=== PATIENT | female | born 1970 | race Caucasian/White ===

== ENCOUNTER 2024-02-18 10:21 | Emergency (ER) | payer OTHER ==
--- OUTSIDE RECORDS SUMMARY | 2024-02-18 10:24 | XMS REPORT | Continuity of Care Document ---
Author Name Unknown Address [address] [place] [address] [facility] thconnect Address [address] [place] [address] Care Team Providers Care Claims Supervisor Name Role Phone AURELIO HENDRICKSON Primary Care Physician Unavailab ELOY León Attending Clinician Unavailable ELOY WASHBURN Attending Clinician Unavailable ESTHER LENNON Attending Clinician Unavailable Esther Lennon MD Attending Clinician [phone] Eri Peters Attending Clinician [phone] ERI CARDONA Attending Clinician Unavailable Gabriela VILLAFANA Attending Clinician Unavailable Gabriela Arce Attending Clinician [phone] Doctor Unassigned, [place] Attending Clinician Flor Chen RN, Alab De La Cruz Attending Clinician Unavailab nena Benson RN, Leonela De Jesus Attending Clinician Unavail able Kamaljit Boothe Attending Clinician [phone] KAMALJIT MORRIS Attending Clinician Unavailable ELOY WASHBURN Admitting Clinician Unavailable ESTHER LENNON Admitting Clinician Unavailable Problems Condition Name Condition Details Condition Category Status Onset Date Resolution Date Last Treatment Date Treating Clinician Comments Source Abdominal pain Abdominal pain Disease Active 08-09 00:00: 00 [facility] Allergies, Adverse Reactions, Alerts Allergy Name Allergy Type Status Severity Reaction(s) Onset Date Inactive Date Treating Clinician Comments Source NO KNOWN ALLERGIE S Drug Class Active [facility] Social History Social Habit Start Date Stop Date Quantity Comments Source [facility] to SARS-CoV-2 (event) Not sure [facility] Alcohol intake 2023-03-16 00:00:00 2023-03-16 00:00:00 Current non-drinker of alcohol (finding) [facility] History of Social function 2018-12-08 00:00:00 2018-12-08 00:00:00 [facility] Tobacco use and exposure 2018-08-09 00:00:00 2018-08-09 00:00:00 Smokeless tobacco non-user [facility] Sex Assigned At 1970 00:00:00 1970 00:00:00 [facility] Smoking Status Start Date Stop Date Source Never smoked tobacco [facility] Medications Ordered Medication Name Filled Medication Name Start Date Stop Date Current Medication? Ordering Clinician Indication Dosage Frequency Signature (SIG) Comments Components Source KCL (KLOR-CON M20) tablet 40 mEq 2022-06 0 15:45: 00 03-16 16:03 :00 No 40meq 40 mEq, Oral, ONCE, 1 dose, On Fri03/16/23 at 1045, CANDE [facility] ketorolac (TORADOL) tablet 10 mg 2022-06 0 15:30: 00 03-16 14:50 :00 No 10mg 10 mg, Oral, ONCE, 1 dose, On Fri03/16/23 at 1030, Routine [facility] NaCl 0.9% (NS) bolus infusion 1,000 mL 2022-06 0 15:30: 00 03-16 16:18 :00 No 1000mL at 999 mL/hr, 1,000 mL, IV Infusion, ONCE, 1 dose, On 03/16/23 at 1030, CANDE [facility] naproxen (NAPROSYN) 500 mg tablet 2022-06 00:00: 00 Yes [id number] 500mg Take 1 tablet by mouth in the morning and 1 tablet in the evening. Take with meals. [facility] methocarbam oL 750 mg tablet 2022-06 00:00: 00 Yes [id number] 750mg Take 1 tablet by mouth 4 (four) times daily. [facility] KCL 20 mEq tablet 2022-06 00:00: 00 03-22 04:59 :00 No [id number] 20meq Take 1 tablet by mouth in the morning and 1 tablet in the evening. Do all this for 5 days. [facility] NaCl 0.9% (NS) bolus infusion 1,000 mL 02-22 23:15: 02-23 00:00 :00 No 1000mL at 999 mL/hr, 1,000 mL, IV Infusion, ONCE, 1 dose, On 02/22/23 at 1815, STAT [facility] ketorolac (TORADOL) injection 30 mg 02-22 22:45: 00 02-22 22:24 :00 No 30mg 30 mg, Slow IV Push, ONCE, 1 dose, On 02/22/23 at 1745, CANDE [facility] iopamidol (ISOVUE 370-500 mL) injection 80 mL 02-22 21:15: 02-22 21:25 :00 No 80mL 80 mL, Intravenou s, ONCE, 1 dose, On 02/22/23 at 1615, Routine [facility] ondansetron (ZOFRAN (PF)) injection 4 mg 02-22 20:15: 00 02-22 19:37 :00 No 4mg 4 mg, Slow IV Push, ONCE, 1 dose, On 02/22/23 at 1515, CANDE [facility] NaCl 0.9% (NS) bolus infusion 1,000 mL 02-22 20:00: 00 02-22 22:00 :00 No 1000mL at 999 mL/hr, 1,000 mL, IV Infusion, ONCE, 1 dose, On [facility] 02[facility]22/23 [facility] 1500[facility] ([facility]PCID[facility] 40 mg tablet 02-22 00:00: 00 Yes [id number] 40mg Take 1 tablet by mouth in the morning. [facility] ondansetron 4 mg disintegrat ing tablet 02-22 00:00: 00 Yes [id number] 4mg Take 1 tablet by mouth every 4 (four) hours as needed for Nausea and Vomiting (N/V). [facility] KCL (KLOR-CON M20) tablet 40 mEq 02-21 03:00: 00 02-21 02:57 :00 No 40meq 40 mEq, Oral, ONCE, 1 dose, On Hannah 02/20/23 at 2200, [facility] ondansetron (ZOFRAN-ODT ) disintegrat ing tablet 4 mg 02-21 01:00: 00 02-21 00:52 :00 No 4mg 4 mg, Oral, ONCE, 1 dose, On Hannah 02/20/23 at 2000, Routine [facility] naproxen (NAPROSYN) tablet 500 mg 07-15 02:30: 00 07-15 01:28 :00 No 500mg 500 mg, Oral, ONCE, 1 dose, On [facility] 07/14/21 at 2030, Routine [facility] naproxen (NAPROSYN) 500 mg tablet 12 00:00: 00 03-16 00:00 :00 No [id number] 500mg Take 1 tablet by mouth 2 (two) times daily with meals. [facility] albuterol 90 mcg/actuati on inhaler 11-29 00:00: 00 Yes [id number] 2{puff} Inhale 2 Puffs every 4 (four) hours as needed for Wheezing or Shortness of Breath. [facility] benzonatate 100 mg capsule 11-29 00:00: 00 Yes [id number] 100mg Take 1 capsule by mouth 3 (three) times daily as needed for Cough. [facility] levothyroxi ne 75 mcg tablet 12-09 01:05: 20 Yes 75ug Take 75 mcg by mouth every morning. [facility] levothyroxi ne 75 mcg tablet 12-08 20:05: 20 Yes 75ug Take 75 mcg by mouth every morning. [facility] dicyclomine (BENTYL) 20 mg tablet 07-06 00:00: 00 Yes [id number] 20mg Take 1 tablet by mouth 4 (four) times daily as needed for Abdominal pain. [facility] Vital Signs Vital Name Observation Time Observation Value Comments S ource Systolic blood pressure 2023-03-16 16:00:00 166 mm[Hg] [facility] Diastolic blood pressure 2023-03-16 16:00:00 96 mm[Hg] [facility] Heart rate 2023-03-16 16:00:00 66 /min [facility] Respiratory rate 2023-03-16 16:00:00 20 /min [facility] Oxygen saturation in Arterial blood by Pulse oximetry 2023-03-16 16:00:00 96 /min [facility] Body temperature 2023-03-16 15:56:00 35.56 Jane [facility] Body height 2023-03-16 14:14:00 167.6 cm [facility] Body weight 2023-03-16 14:14:00 78.926 kg [facility] BMI 2023-03-16 14:14:00 28.08 kg/m2 [facility] Systolic blood pressure 2023-02-22 23:24:00 137 mm[Hg] [facility] Diastolic blood pressure 2023-02-22 23:24:00 91 mm[Hg] [facility] Heart rate 2023-02-22 23:24:00 65 /min [facility] Respiratory rate 2023-02-22 23:24:00 20 /min [facility] Oxygen saturation in Arterial blood by Pulse oximetry 2023-02-22 23:24:00 99 /min [facility] Body temperature 2023-02-22 22:24:00 36.17 Jane [facility] Body weight 2023-02-22 18:55:00 80.74 kg [facility] BMI 2023-02-22 18:55:00 28.73 kg/m2 [facility] Systolic blood pressure 2023-02-21 02:15:29 141 mm[Hg] [facility] Diastolic blood pressure 2023-02-21 02:15:29 107 mm[Hg] [facility] Heart rate 2023-02-21 02:15:29 79 /min [facility] Respiratory rate 2023-02-21 02:15:29 19 /min [facility] Oxygen saturation in Arterial blood by Pulse oximetry 2023-02-21 02:15:29 97 /min [facility] Body temperature 2023-02-21 00:56:51 36.5 Jane [facility] Body height 2023-02-20 23:07:00 167.6 cm [facility] Body weight 2023-02-20 23:07:00 80.74 kg [facility] BMI 2023-02-20 23:07:00 28.73 kg/m2 [facility] Systolic blood pressure 2021-07-15 00:41:00 143 mm[Hg] [facility] Diastolic blood pressure 2021-07-15 00:41:00 97 mm[Hg] [facility] Heart rate 2021-07-15 00:41:00 95 /min [facility] Body temperature 2021-07-15 00:41:00 36.56 Jane [facility] Respiratory rate 2021-07-15 00:41:00 18 /min [facility] Body weight 2021-07-15 00:41:00 77.111 kg [facility] BMI 2021-07-15 00:41:00 27.44 kg/m2 [facility] Oxygen saturation in Arterial blood by Pulse oximetry 2021-07-15 00:41:00 100 /min [facility] Systolic blood pressure 2019-12-01 04:30:00 120 mm[Hg] [facility] Diastolic blood pressure 2019-12-01 04:30:00 84 mm[Hg] [facility] Heart rate 2019-12-01 04:30:00 70 /min [facility] Respiratory rate 2019-12-01 04:30:00 15 /min [facility] Oxygen saturation in Arterial blood by Pulse oximetry 2019-12-01 04:30:00 100 /min [facility] Body temperature 2019-12-01 02:52:00 37.11 Jane [facility] Body weight 2019-12-01 02:52:00 77.111 kg [facility] BMI 2019-12-01 02:52:00 27.44 kg/m2 [facility] Procedures Procedure Date / Time Performed Performing Clinician Source COMP. METABOLIC PANEL ([id number]) 2023-03-16 14:38:00 Eloy Washburn [facility] CBC WITH DIFF 2023-03-16 14:38:00 Eloy Washburn [facility] URINALYSIS 2023-03-16 14:38:00 Eloy Washburn [facility] URINE DRUG (IMMUNOASSAY) - COMPREHENSIVE DRUG SCREEN W/O REFLEX 2023-03-16 14:38:00 [facility] HB ECG ROUTINE & RHYTHM STRIP 2023-03-16 14:11:28 [facility] CONSENT/REFUSAL FOR DIAGNOSIS AND TREATMENT 2023-03-16 14:05:43 Doctor Unassigned, [place] [facility] CT ABDOMEN PELVIS W CONTRAST 2023-02-22 21:24:57 Esther Lennon [facility] LACTIC ACID WHOLE BLOOD 2023-02-22 19:39:00 Do justice Lennon [facility] CREATINE KINASE 2023-02-22 19:38:00 [facility] 2023-02-22 19:38:00 Esther Lennon [facility] MAGNESIUM 2023-02-22 19:38:00 [facility] COMP. METABOLIC PANEL ([id number]) 2023-02-22 19:38:00 Esther Lennon [facility] CBC WITH DIFF 2023-02-22 19:38:00 Esther Lennon [facility] URINALYSIS 2023-02-22 19:38:00 [facility] URINE DRUG (IMMUNOASSAY) - COMPREHENSIVE DRUG SCREEN W/O REFLEX 2023-02-22 19:38:00 Esther Lennon [facility] CONSENT/REFUSAL FOR DIAGNOSIS AND TREATMENT 2023-02-22 18:49:26 Doctor Unassigned, [place] [facility] LIPASE 2023-02-21 02:04:[address] [facility] COMP. METABOLIC PANEL ([id number]) 2023-02-21 02:04:00 Eri Cardona [facility] CBC WITH DIFF 2023-02-21 02:04:[address] [facility] POCT GLUCOSE (AUTOMATED) 2023-02-21 01:50:00 Denilson Cardona [facility] URINALYSIS 2023-02-21 00:52:[address] [facility] ASSIGNMENT OF BENEFITS 2023-02-21 00:10:31 Docto r Unassigned, [place] [facility] RAPID INFLUENZA A/B 2023-02-21 00:05:00 Eri Cardona [facility] COVID-19 (ID NOW RAPID TESTING) 2023-02-21 00:05:00 Eri Cardona [facility] CONSENT/REFUSAL FOR DIAGNOSIS AND TREATMENT 2023-02-20 22:56:07 Doctor Unassigned, [place] [facility] NOTICE OF PRIVACY PRACTICES 2021-07-15 00:35:54 Doctor Unassigned, [place] [facility] CONSENT/REFUSAL FOR DIAGNOSIS AND TREATMENT 2021-07-15 00:35:24 Doctor Unassigned, [place] [facility] XR CHEST 1 VW 2019-12-01 03:35:08 Kamaljit Morris [facility] TROPONIN I 2019-12-01 03:08:00 Kamaljit Morris [facility] EKG-12 LEAD 2019-12-01 02:57:43 Kamaljit Morris [facility] ASSIGNMENT OF BENEFITS 2019-12-01 02:30:55 Docto r Unassigned, [place] [facility] CONSENT/REFUSAL FOR DIAGNOSIS AND TREATMENT 2019-12-01 02:30:26 Doctor Unassigned, [place] [facility] AUTHORIZATION FOR RELEASE OF PHI 2019-01-22 05:01:00 Doctor Unassigned, [place] [facility] Encounters Start Date/Time End Date/Time Encounter Type Admission Type Attending [facility] Facility Care Department Encounter ID Source 2023-03-26 14:50:11 2023-03-26 14:50:[address] [facility] [id number] Kartik Esteves 2023-03-16 09:08:00 2023-03-16 11:21:00 Emergency Blake [place] ELOY WASHBURN [facility] ERT [id number] [facility] 2023-03-16 09:08:00 2023-03-16 11:21:00 Emergency Eloy Washburn [facility] 1.2.840.114 350.1.13.10 4.2.7.2.686 [id number] [facility] 2023-02-22 13:57:00 2023-02-22 19:30:00 Emergency ESTHER MILLER [facility] ERT [id number] [facility] 2023-02-22 13:57:00 2023-02-22 19:30:00 Emergency Esther Lennon [facility] 1.2.840.114 350.1.13.10 4.2.7.2.686 [id number] [facility] 2023-02-20 18:08:00 2023-02-20 22:50:00 Emergency Eri Cardona [facility] 1.2.840.114 350.1.13.10 4.2.7.2.686 [id number] [facility] 2023-02-20 18:08:00 2023-02-20 22:50:00 Emergency X ERI CARDONA [facility] ERT [id number] [facility] 2021-07-14 18:42:00 2021-07-14 19:43:00 Emergency X Gabriela VILLAFANA [facility] ERT [id number] [facility] 2021-07-14 18:42:00 2021-07-14 19:43:00 Emergency Gabriela Villafana [facility] 1.2.840.114 350.1.13.10 4.2.7.2.686 [id number] [facility] 2021-07-14 00:00:00 2021-07-14 00:00:00 Orders Only Doctor Unassigned, [place] [facility] 1.2.840.114 350.1.13.10 4.2.7.2.686 [id number] [facility] 2019-12-06 00:00:00 2019-12-06 00:00:00 Letter (Out) Alba Chen [facility] 1.2.840.114 350.1.13.10 4.2.7.2.686 [id number] [facility] 2019-12-05 00:00:00 2019-12-05 00:00:00 Telephone Leonela Benson [facility] 1.2.840.114 350.1.13.10 4.2.7.2.686 [id number] [facility] 2019-11-30 21:33:45 2019-11-30 23:43:00 Emergency Kamaljit Morris [facility] 1.2.840.114 350.1.13.10 4.2.7.2.686 [id number] [facility] 2019-11-30 21:33:45 2019-11-30 21:33:45 Emergency X KAMALJIT MORRIS [facility] ERT [id number] [facility] 2019-11-30 00:00:00 2019-11-30 00:00:00 Orders Only Doctor Unassigned, [place] [facility] 1.2.840.114 350.1.13.10 4.2.7.2.686 [id number] [facility] 2019-01-22 00:00:00 2019-01-22 00:00:00 Orders Only Doctor Unassigned, [place] [facility] 1.2.840.114 350.1.13.10 4.2.7.2.686 [id number] [facility] Results Test Description Test Time Test Comments Results Result Co mments Source [facility] WITH [id number] 15:04:12* Test Item Value Reference Range Interpretation Comme nts WBC (test code = 6690-2) 5.05 See_Comment [Automated Breezeplay[employer] ge] The system which generated this result transmitted reference range: 4.30 - 11.10 10*3/?L. The reference range was not used to interpret this result as normal/abnormal. RBC (test code = 789-8) 4.56 See_Comment [Automated [employer]reezeplay[employer] ge] The system which generated this result transmitted reference range: 3.93 - 5.25 10*6/?L. The reference range was not used to interpret this result as normal/abnormal. HGB (test code = 718-7) 13.7 g/dL 11.6-15.0 HCT (test code = 4544-3) 39.7 % 35.7-45.2 MCV (test code = 787-2) 87.1 fL 80.6-95.5 MCH (test code = 785-6) 30.0 pg 25.9-32.8 MCHC (test code = 786-4) 34.5 g/dL 31.6-35.1 RDW-SD (test code = 35191-0) 41.0 fL 39.0-49.9 RDW-CV (test code = 788-0) 12.9 % 12.0-15.5 PLT (test code = 777-3) 211 See_Comment [Automated messa ge] The system which generated this result transmitted reference range: 166 - 358 10*3/?L. The reference range was not used to interpret this result as normal/abnormal. MPV (test code = 43633-6) 9.6 fL 9.5-12.9 NRBC/100 WBC (test code = 4494703299) 0.0 See_Comment [Automated me ssage] The system which generated this result transmitted reference range: 0.0 - 10.0 /100 WBCs. The reference range was not used to interpret this result as normal/abnormal. NRBC x10^3 (test code = 5611762148) See_Comment [Automated me ssage] The system which generated this result transmitted reference range: 10*3/?L. The reference range was not used to interpret this result as normal/abnormal. GRAN MAT (NEUT) % (test code = 770-8) 56.4 % IMM GRAN % (test code = 7247186639) 0.40 % LYMPH % (test code = 736-9) 28.1 % MONO % (test code = 5905-5) 11.7 % EOS % (test code = 713-8) 2.6 % BASO % (test code = 706-2) 0.8 % GRAN MAT x10^3(ANC) (test code = 3160184823) 2.85 10*3/uL 1.88-7.09 IMM GRAN x10^3 (test code = 9767663233) 0.00-0.06 LYMPH x10^3 (test code = 731-0) 1.42 10*3/uL 1.32-3.29 MONO x10^3 (test code = 742-7) 0.59 10*3/uL 0.33-0.92 EOS x10^3 (test code = 711-2) 0.13 10*3/uL 0.03-0.39 BASO x10^3 (test code = 704-7) 0.04 10*3/uL 0.01-0.07 [facility] [id number] 19:45:55* Test Item Value Reference Range Interpretation Comme nts LACTIC ACID (test code = 8251849918) 1.58 mmol/L 0.50-2.20 Lab Interpretation (test cod e = 84224-4) [facility] (96142)2023-02-21 02:58:07* Test Item Value Reference Range Interpretation Comme nts NA (test code = 0684584916) 136 mmol/L 135-145 K (test code = 5583410665) 2.9 mmol/L 3.5-5.0 LL CL (test code = 3299538210) 99 mmol/L 98-108 CO2 TOTAL (test code = 9583707842) 21 mmol/L 23-31 L AGAP (test code = 1283645264) 16 2-16 BUN (test code = 4467904052) 22 mg/dL 7-23 GLUCOSE (test code = 7503227118) 101 mg/dL 70-110 CREATININE (test code = 3007450221) 0.99 mg/dL 0.50-1.04 TOTAL BILI (test code = 7505377499) 1.3 mg/dL 0.1-1.1 H CALCIUM (test code = 0216526654) 9.9 mg/dL 8.6-10.6 T PROTEIN (test code = 0736400256) 9.2 g/dL 6.3-8.2 H ALBUMIN (test code = 1391838275) 4.7 g/dL 3.5-5.0 ALK PHOS (test code = 2517213846) 85 U/L 34-122 ALTv (test code = 1742-6) 118 U/L 5-35 H AST(SGOT) (test code = 8607007761) 104 U/L 13-40 H eGFR (test code = 0475516241) 58.5 mL/min/1.73m2 SAPPHIRE (test code = SAPPHIRE) Association of Glomerular Filtration Rate (GFR) and Staging of Kidney Disease* + --+ --+ ------+| GFR (mL/min/1.73 m2) ?| With Kidney Damage ?| ?Without Kidney Damage+ --------+ --------+ +| ?>90 ?| ?Stage one ?| ? Normal ?+ ---+ ---+ -------+| ?60-89 ?| ?Stage two ?| ? Decreased GFR ? + --+ --+ ------+| ?30-59 ?| ?Stage three ?| ? Stage three ? + --+ --+ ------+| ?15-29 ?| ?Stage four ? | ? Stage four ?+ ---+ ---+ -------+| ?<15 (or dialysis) ? ?| ?Stage five ? | ? Stage five ?+ ---+ ---+ -------+ *Each stage assumes the associated GFR level has been in effect for at least three months. ?Stages 1 to 5, with or without kidney disease, indicate chronic kidney disease. Notes: Determination of stages one and two (with eGFR >59mL/min/1.73 m2) requires estimation of kidney damage for at least three months as defined by structural or functional abnormalities of the kidney, manifested by either:Pathological abnormalities or Markers of kidney damage (including abnormalities in the composition of the blood or urine or abnormalities in imaging tests). Lab Interpretation (test code = 86888-3) Abnormal [facility] WITH [id number] 02:50:32* Test Item Value Reference Range Interpretation Comme nts WBC (test code = 6690-2) 11.84 See_Comment H [Automated FlipKey] The system which generated this result transmitted reference range: 4.30 - 11.10 10*3/?L. The reference range was not used to interpret this result as normal/abnormal. RBC (test code = 789-8) 5.51 See_Comment H [Automated [employer]Key] The system which generated this result transmitted reference range: 3.93 - 5.25 10*6/?L. The reference range was not used to interpret this result as normal/abnormal. HGB (test code = 718-7) 16.6 g/dL 11.6-15.0 H HCT (test code = 4544-3) 46.7 % 35.7-45.2 H MCV (test code = 787-2) 84.8 fL 80.6-95.5 MCH (test code = 785-6) 30.1 pg 25.9-32.8 MCHC (test code = 786-4) 35.5 g/dL 31.6-35.1 H RDW-SD (test code = 16016-0) 39.8 fL 39.0-49.9 RDW-CV (test code = 788-0) 13.2 % 12.0-15.5 PLT (test code = 777-3) 379 See_Comment H [Automated messa ge] The system which generated this result transmitted reference range: 166 - 358 10*3/?L. The reference range was not used to interpret this result as normal/abnormal. MPV (test code = 01921-6) 9.8 fL 9.5-12.9 NRBC/100 WBC (test code = 6562306280) 0.0 See_Comment [Automated [employer] ssage] The system which generated this result transmitted reference range: 0.0 - 10.0 /100 WBCs. The reference range was not used to interpret this result as normal/abnormal. NRBC x10^3 (test code = 8133991650) See_Comment [Automated messa ge] The system which generated this result transmitted reference range: 10*3/?L. The reference range was not used to interpret this result as normal/abnormal. GRAN MAT (NEUT) % (test code = 770-8) 57.8 % IMM GRAN % (test code = 8206832666) 1.20 % LYMPH % (test code = 736-9) 23.4 % MONO % (test code = 5905-5) 15.3 % EOS % (test code = 713-8) 1.5 % BASO % (test code = 706-2) 0.8 % GRAN MAT x10^3(ANC) (test code = 6201182558) 6.84 10*3/uL 1.88-7.09 IMM GRAN x10^3 (test code = 8707276491) 0.14 10*3/uL 0.00-0.06 H LYMPH x10^3 (test code = 731-0) 2.77 10*3/uL 1.32-3.29 MONO x10^3 (test code = 742-7) 1.81 10*3/uL 0.33-0.92 H EOS x10^3 (test code = 711-2) 0.18 10*3/uL 0.03-0.39 BASO x10^3 (test code = 704-7) 0.10 10*3/uL 0.01-0.07 H Lab Interpretation (test code = 16838-0) [facility]:29* Test Item Value Reference Range Interpretation Comme nts LIPASE (test code = 6929472233) 201 U/L 0-220 Lab Interpretation (test cod e = 57364-2) Normal [facility]2023-02-21 01:52:26* Test Item Value Reference Range Interpretation Comme nts POCT GLU (test code = 8467459589) 99 mg/dL 70-110 Lab Interpretation (test cod e = 99244-2) Normal [facility] 1 [id number] 04:33:08No acute intrathoracic abnormality. Preliminary Report Dictated by Resident: Kumar Hall MD., have reviewed this study and agree with the abovereport.PROCEDURE: XR CHEST 1 VW CLINICAL INDICATION: cough, shortness of breath COMPARISON: None FINDINGS: The lungs are clear. No pleural effusion or pneumothorax is seen. The heartis normal in size. No acute bony abnormality. Surgical clips overlie the right axilla. [facility], Radiant Results Inft User - 11/30/2019 11:34 PM CDTPROCEDURE: XR CHEST 1 VWCLINICAL INDICATION: cough, shortness of breath COMPARISON: NoneFINDINGS:The lungs are clear. No pleural effusion or pneumothorax is seen. The heartis normal in size.No acute bony abnormality. Surgical clips overlie the right axilla.IMPRESSIONNo acute intrathoracic abnormality.Preliminary Report Dictated by Resident: Kumar Marinelli MD., have reviewed this study and agree with the abovereport.[facility]43:00* Test Item Value Reference Range Interpretation Comme nts TROPONIN I (test code = 7207657501) <0.012 See_Comment [Automated message] The system which generated this result transmitted reference range: <=0.034 ng/mL. The reference range was not used to interpret this result as normal/abnormal. SAPPHIRE (test code = SAPPHIRE) Equal or Less than 0.034 ng/ml---Normal ?Note: Cardiac troponin begins to rise 3-4 hours after the onset of ischemia. Repeat in 4-6 hours if the sample was drawn within 3-4 hours of the onset of the symptom and found normal. Between 0.035 and 0.120 ng/mL--- Borderline. Questionable myocardial injury or necrosis ? ?Note: Serial measurement may be necessary to confirm or exclude the diagnosis of myocardial injury or necrosis; Clinical correlation (symptoms, EKGs, imaging studies, and others) required; Repeat in 4-6 hours if clinically indicated. ? Equal or Higher than 0.121 ng/mL---Abnormal. Myocardial Injury or Necrosis Likely ? Biotin has been reported to cause a negative bias, interpret results relative to patient's use of biotin. ? Lab Interpretation (test code = 16855-1) Normal [facility]"
[2024-02-18 11:14] LABS: SARS-CoV-2 Antigen CONTROL BLUE LINE VIS/BG OK; SARS-CoV-2 Antigen Rapid Res Negative (Negative)
[2024-02-18] MEDS ORDERED: LORazepam 2 MG/ML VIAL ONE (11:19)
[2024-02-18] MEDS ORDERED: NA CHLORIDE 0.9% 1,000 ML ONE ×2 (11:23→13:36)
[2024-02-18 11:42] LABS: Absolute Eosinophils 0.1 K/uL (0-0.5); Absolute Lymphocytes (CBC) 0.8 K/uL (0.7-4.9); Absolute Monocytes 0.5 K/uL (0.1-1.3); Absolute Neutrophil 2.9 K/uL (1.8-8.0); Basophils % 0.9 % (0-1.3); Eosinophils % 1.9 % (0-4.4); Hematocrit 39.6 % (36.0-45.0); Hemoglobin 13.4 g/dL (12.0-15.0); MCH 29.8 pg (27.0-35.0); MCHC 33.9 g/dL (32.0-36.0); MCV 87.8 fL (80-100); MPV 7.5 fL (7.6-11.3); Neutrophils % 66.2 % (41.7-73.7); Platelets 153 thou/uL (152-406); RBC Red Blood Cell Count 4.51 M/uL (3.86-4.86); Red Cell Distribution Width 13.4 % (12.1-15.2)
--- NOTE | 2024-02-18 11:58 | RAD REPORT ---
EXAM: CT brain without contrast HISTORY: [facility] WEAK[facility] Bed Name: 7 COMPARISON: None TECHNIQUE: Multiple contiguous axial images were obtained and a CT of the brain without contrast. Sag ittal and coronal reformats were performed. FINDINGS: No evidence of hydrocephalus, intracranial hemorrhage, or extra-axial fluid collection. The brain is normal in morphology. The calvarium is intact. Mild polypoid mucosal thickening noted in the paranasal sinuses. Partially v isualized. Small collections along the right maxillary alveolus, may represent small abscesses. IMPRESSION: No evidence of acute intracranial abnormality. Suggestion of small periapical abscesses along the right maxillary alveolus, please correlate with de ntal exam.
[2024-02-18 12:07] LABS: ALT/SGPT 109 U/L (13-56); AST/SGOT 79 U/L (15-37); Albumin 3.4 g/dL (3.4-5.0); Albumin/Globulin Ratio 0.8 (1.1-1.8); Alkaline Phosphatase 58 U/L (45-117); Anion Gap 10.3 mEq/L (5.0-15.0); BUN Blood Urea Nitrogen 10 mg/dL (7-18); Bicarbonate 23 mEq/L (21-32); Bilirubin Direct 0.4 mg/dL (0-0.2); Bilirubin Indirect, Calculated 1.2 mg/dL (0.2-0.8); Bilirubin Total 1.6 mg/dL (0.2-1.0); Globulin 4.2 g/dL (2.3-3.5); Glomerular Filtration Rate 104 ml/min (=/>90); Glucose Level 90 mg/dL (74-106); Lipase 24 U/L (13-75); Magnesium 1.7 mg/dL (1.6-2.4); NT PRO-BNP 263 pg/mL (<125); Potassium 3.3 mEq/L (3.5-5.1); Protein, Total 7.6 g/dL (6.4-8.2); Sodium Level 140 mEq/L (136-145); Troponin High Sensitivity 3.9 pg/mL (<58.9)
[2024-02-18 12:10] LABS: D-Dimer 1.069 FEUug/mL (0-0.500); PT Prothrombin Time 13.5 SECONDS (9.4-12.5); Protime INR 1.21
[2024-02-18] MEDS ORDERED: FOLIC ACID 5 MG/ML VIAL ONE (12:11)
--- NOTE | 2024-02-18 12:47 | RAD REPORT ---
EXAMINATION: MRI BRAIN WITHOUT CONTRAST CLINICAL INDICATION: Female, 54 years old.[facility] MAIN N WEAKNESS Bed Name: 7 TECHNIQUE: Multiplanar multisequence MR images of the brain were obtained without intravenous contras t. Unless otherwise specified, incidental findings do not require dedicated imaging follow-up. COMPARISON: Noncontrast head CT of the same day FINDINGS: Motion artifact limits evaluation on some sequences, despite attempts at repeat imaging. INTRACRANIAL: Midline structures are unremarkable. Diffusion-weighted images show no acute or early subacute infarction. There is mild brain atrophy with mildT2/FLAIR hyperintensities in the periventricular and deep white matter regions, likely representing chronic microvascular ischemic rafaela nges. No augmented susceptibility signal abnormality. There is no mass effect or midline shift. No abnormal extraaxial fluid collection. VASCULATURE: Normal signal voids in the larger intracranial arteries and dural venous sinuses. SINUSES: The paranasal sinuses and mastoid air cells are predominantly clear. BONE: The marrow signal pattern is within normal limits. IMPRESSION: No significant intracranial abnormalities.
--- NOTE | 2024-02-18 13:34 | RAD REPORT ---
EXAMINATION: US CAROTID DUPLEX CLINICAL INDICATION: Dizziness. TECHNIQUE: Real-time grayscale, color flow and spectral Doppler sonographic images were obtained of t extracranial carotid system using a linear transducer. COMPARISON: No prior exam. FINDINGS: RIGHT: Velocity of the internal carotid artery centimeters per second Right ICA/CCA ratio is normal LEFT: Velocity of the left internal carotid artery centimeters per second Left ICA/CCA ratio is normal Mild plaque is present within the arteries. Vertebral arteries demonstrate antegrade flow. No significant abnormality external and common carotid arteries NASCET criteria: mild stenosis, 0% to 49%; moderate, 50% to 69%; severe stenosis, 70% to 99%. For ECST and CC criteria , mild stenosis, 0% to 64 %; moderate, 65% to 81%; severe stenosis, 82% to 99%. IMPRESSION: No significant vascular abnormality displayed
[2024-02-18] MEDS ORDERED: CLINDAMYCIN 900MG/D5W 900 MG/50 ML IVPB IV ONE (13:36)
[2024-02-18] MEDS ORDERED: POTASSIUM 25 MEQ EFFERV TAB ONE (13:36)
[2024-02-18 13:42] LABS: Specific Gravity 1.012 (1.005-1.030); Sqamous Epithelial <5 /HPF (None Seen); Urine Bacteria None Seen /HPF (<20); Urine Bilirubin NEGATIVE (Negative); Urine Blood Trace (Negative); Urine Clarity Clear (Clear); Urine Color Light-Yellow (Yellow); Urine Culture Reflex Order NOT NEEDED; Urine Glucose NEGATIVE (Negative); Urine Ketones 1+ (Negative); Urine Microscopic Reflex YN ORDER UMIC; Urine Mucus Slight /HPF (None Seen); Urine Nitrite NEGATIVE (Negative); Urine Protein NEGATIVE (Negative); Urine RBC <5 /HPF (None Seen); Urine Urobilinogen Normal (Normal); Urine WBC None Seen /HPF (<5)
[2024-02-18 13:51] LABS: Barbiturates NEGATIVE (NEGATIVE); Benzodiazepines NEGATIVE (NEGATIVE); Cocaine NEGATIVE (NEGATIVE); METHAMPHETAM NEGATIVE (NEGATIVE); Methadone NEGATIVE (NEGATIVE); Opiates NEGATIVE (NEGATIVE); Phencyclidine NEGATIVE (NEGATIVE); THC Cannibis POSITIVE (NEGATIVE)
--- NOTE | 2024-02-18 14:23 | RAD REPORT ---
Chest For Pe Angio History: EXAM: Chest For Pe Angio CLINICAL INDICATION: Chest pain N TECHNIQUE CT angiogram of the chest with intravenous contrast. 100 cc 370 Isovue administered intrav enously. Reconstruction performed One or more of the following dose reduction techniques were used: Automated exposure control, adjustment of the mA and/or kV according to patient size, and/or iterativ e reconstruction. Unless otherwise specified, incidental findings do not require dedicated imaging follow-up. COMPARISON: 2006 FINDINGS: A pulmonary embolus is not seen. No thoracic aortic aneurysm A pleural effusion present. No pericardial effusion. Lungs are clear. Visualized spleen is enlarged IMPRESSION: No evidence of a pulmonary embolus Splenomegaly
--- NOTE | 2024-02-18 14:28 | RAD REPORT ---
Extrem Venous W Compress Ronnie History: EXAMINATION: US bilateral LOWER EXTREMITY VENOUS DOPPLER CLINICAL INDICATION: Leg pain. TECHNIQUE: Complete bilateral duplex sonography of the bilateral lower extremity veins was performed. The examination included compression for vein patency, color Doppler imaging and flow augmentation in response to distal compression of the common femoral, femoral, popliteal, tibial, and great saphen ous veins. COMPARISON: None FINDINGS: Duplex sonography testing of the veins of the left lower extremity was performed. Color flow imaging shows all veins to be compressible with [id number] color filling. Pulsatile and phasic flow is present within all lower extremity deep and superficial veins examined. 3.8 x 0.6 cm Metcalf's cyst left leg IMPRESSION: No sonographic evidence of deep venous thrombosis involving the bilateral lower extremities 3.8 cm le ft Metcalf cyst
--- NOTE | 2024-02-18 14:31 | EDPHYS ---
Physician Documentation [facility] Name: Shivani Washington Age: 54 yrs Sex: Female : 1970 Arrival Date: 02/18/2024 Time: 10:21 Bed 7 Private MD: ANTHONY Physician Олег Navarro HPI: 02/17 11:28 This 54 yrs old Female presents to ER via Wheelchair with complaints of Flu rafaela Symptoms. 11:28 The patient's problem is reported as weakness, that is generalized. Onset: The rafaela symptoms/episode began/occurred this morning. Duration: This was a single incident, The episode is continuous. Context: weak and shaky all over. The symptoms are alleviated by nothing. shaky all over , right greater than left. 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 - Infectious Disease History:: Denies. - Social history:: Smoking status: Patient denies any tobacco usage or history of. Patient/guardian denies using alcohol. ROS: 11:31 Constitutional: Negative for fever, chills, and weight loss, Eyes: Negative for injury, rafaela pain, redness, and discharge, ENT: Negative for injury, pain, and discharge, Neck: Negative for injury, pain, and swelling, Cardiovascular: Negative for chest pain, palpitations, and edema, Respiratory: Negative for shortness of breath, cough, wheezing, and pleuritic chest pain, Abdomen/GI: Negative for abdominal pain, nausea, vomiting, diarrhea, and constipation, Back: Negative for injury and pain, : Negative for injury, bleeding, discharge, and swelling, Skin: Negative for injury, rash, and discoloration, Psych: Negative for depression, anxiety, suicide ideation, homicidal ideation, and hallucinations, Allergy/Immunology: Negative for hives, rash, and allergies, Endocrine: Negative for neck swelling, polydipsia, polyuria, polyphagia, and marked weight changes, Hematologic/Lymphatic: Negative for swollen nodes, abnormal bleeding, and unusual bruising, 11:31 MS/extremity: Positive for weak and shaky both sides, Exam: 11:31 Constitutional: This is a well developed, well nourished patient who is awake, alert, rafaela and in no acute distress. Head/Face: Normocephalic, atraumatic. Eyes: Pupils equal round and reactive to light, extra-ocular motions intact. Lids and lashes normal. Conjunctiva and sclera are non-icteric and not injected. Cornea within normal limits. Periorbital areas with no swelling, redness, or edema. ENT: Nares patent. No nasal discharge, no septal abnormalities noted. Tympanic membranes are normal and external auditory canals are clear. Oropharynx with no redness, swelling, or masses, exudates, or evidence of obstruction, uvula midline. Mucous membranes moist. Neck: Trachea midline, no thyromegaly or masses palpated, and no cervical lymphadenopathy. Supple, full range of motion without nuchal rigidity, or vertebral point tenderness. No Meningismus. Chest/axilla: Normal chest wall appearance and motion. Nontender with no deformity. No lesions are appreciated. Cardiovascular: Regular rate and rhythm with a normal S1 and S2. No gallops, murmurs, or rubs. Normal PMI, no JVD. No pulse deficits. Respiratory: Lungs have equal breath sounds bilaterally, clear to auscultation and percussion. No rales, rhonchi or wheezes noted. No increased work of breathing, no retractions or nasal flaring. Abdomen/GI: Soft, non-tender, with normal bowel sounds. No distension or tympany. No guarding or rebound. No evidence of tenderness throughout. Back: No spinal tenderness. No costovertebral tenderness. Full range of motion. Skin: Warm, dry with normal turgor. Normal color with no rashes, no lesions, and no evidence of cellulitis. MS/ Extremity: Pulses equal, no cyanosis. Neurovascular intact. Full, normal range of motion. Neuro: Awake and alert, GCS 15, oriented to person, place, time, and situation. Cranial nerves II-XII grossly intact. Motor strength 5/5 in all extremities. Sensory grossly intact. Cerebellar exam normal. Normal gait. Psych: Awake, alert, with orientation to person, place and time. Behavior, mood, and affect are within normal limits. 11:31 ECG was reviewed by the Attending Physician. 11:34 Radiologist reports: see report [facility] 12:25 ECG was reviewed by the Attending Physician. [facility] Vital Signs: 10:27 BP 149 / 101; Pulse 91; Resp 25; Temp 99(O); Pulse Ox 96% on R/A; Weight 81.65 kg; tm6 Height 5 ft. 5 in. ; Pain 8/10; 12:25 BP 150 / 88; Pulse 65; Resp 16 S; Pulse Ox 96% on R/A; kc6 14:40 BP 143 / 84; Pulse 62; Resp 15; Pulse Ox 100% ; ko1 10:27 Body Mass Index 29.95 (81.65 kg, 165.1 cm) tm6 10:27 Pain Scale: Adult tm6 MDM: 10:25 Patient medically screened. [facility] 11:33 Differential diagnosis: CVA, TIA, Dementia, paralysis, metabolic disorder, drug rafaela effects. Differential Diagnosis altered mental status, sepsis, flu. TNKase (Tenecteplase) Screening: Not Applicable. Data reviewed: vital signs, nurses notes, lab test result(s), EKG, radiologic studies, CT scan, doppler, plain films. Consideration of Admission/Observation Escalation of care including admission/observation considered. I considered the following discharge prescriptions or medication management in the emergency department Medications were administered in the Emergency Department. See MAR. Independent interpretation of the following test(s) in the Emergency Department EKG: See my EKG interpretation above. Test considered but Not performed: CT: no ct traumagram. 02/17 10:25 Order name: SARS RAPID; Complete Time: 13:12 [facility] 02/17 10:25 Order name: Flu; Complete Time: 13:12 [facility] 02/17 10:25 Order name: Strep [facility] 02/17 11:10 Order name: Basic Metabolic Panel; Complete Time: 13:12 [facility] 02/17 11:10 Order name: CBC with Diff; Complete Time: 13:12 [facility] 02/17 11:10 Order name: LFT's; Complete Time: 13:12 [facility] 02/17 11:10 Order name: Magnesium; Complete Time: 13:12 [facility] 02/17 11:10 Order name: NT PRO-BNP; Complete Time: 13:12 [facility] 02/17 11:10 Order name: PT-INR; Complete Time: 13:12 [facility] 02/17 11:10 Order name: Troponin HS; Complete Time: 13:12 [facility] 02/17 11:10 Order name: Lipase; Complete Time: 13:12 [facility] 02/17 11:10 Order name: Urinalysis w/ reflexes; Complete Time: 14:29 [facility] 02/17 11:10 Order name: UDS; Complete Time: 14:29 [facility] 02/17 11:10 Order name: ETOH Level; Complete Time: 13:12 [facility] 02/17 11:10 Order name: D-Dimer; Complete Time: 13:12 [facility] 02/17 11:11 Order name: Throat Culture [facility] 02/17 11:37 Order name: Asprin; Complete Time: 14:29 [facility] 02/17 11:58 Order name: Acetaminophen Level; Complete Time: 13:12 [facility] 02/17 11:10 Order name: XRAY Chest (1 view) [facility] 02/17 11:10 Order name: CT Head Brain wo Cont; Complete Time: 13:12 [facility] 02/17 11:10 Order name: US Carotid Artery Bilateral; Complete Time: 14:29 [facility] 02/17 11:32 Order name: Brain Wo Cont; Complete Time: 13:12 [facility] 02/17 13:13 Order name: US Extremity Venous W Compression Ronnie; Complete Time: 14:29 [facility] 02/17 13:13 Order name: CT Chest For PE Angio [facility] 02/17 11:10 Order name: EKG; Complete Time: 11:10 [facility] 02/17 11:10 Order name: Cardiac monitoring; Complete Time: 11:18 [facility] 02/17 11:10 Order name: EKG - Nurse/Tech; Complete Time: 12:25 [facility] 02/17 11:10 Order name: IV Saline Lock; Complete Time: 11:29 [facility] 02/17 11:10 Order name: Labs collected and sent; Complete Time: 11:29 [facility] 02/17 11:10 Order name: O2 Per Protocol; Complete Time: 11:18 [facility] 02/17 11:10 Order name: O2 Sat Monitoring; Complete Time: 11:18 [facility] EC:25 Rate is 65 beats/min. Rhythm is regular. QRS Pollock is Normal. ND interval is normal. QRS rafaela interval is normal. QT interval is normal. No Q waves. T waves are Normal. No ST changes noted. Clinical impression: Normal ECG and No evidence of ischemia. Interpreted by me. Reviewed by me. Administered Medications: 11:20 Drug: Ativan IVP 1 mg IVP once Route: IVP; Site: left antecubital; ko1 11:35 Follow up: Response: No adverse reaction; Anxiety unchanged ko1 11:27 Drug: NS 0.9% IV 1000 ml IV at 1 bolus Per protocol; 1000 mL bolus Route: IV; Rate: 1 ko1 bolus; Site: left antecubital; 11:28 Drug: Ativan IVP 1 mg IVP once Route: IVP; Site: left antecubital; ko1 11:43 Follow up: Response: No adverse reaction; Anxiety decreased ko1 12:25 Drug: foLIC Acid IVPB 1 mg IVPB once Route: IVPB; Site: left antecubital; kc6 14:04 Drug: NS 0.9% IV 1000 ml IV at 1 bolus Per protocol; 1000 mL bolus Route: IV; Rate: 1 ko1 bolus; Site: left antecubital; 14:42 Follow up: Response: No adverse reaction; IV Status: Completed infusion; IV Intake: ko1 1000ml 14:04 Drug: Potassium PO Effervescent Tablet 50 mEq PO once; dissolve in 4 ounces of water or ko1 juice Route: PO; 14:40 Follow up: Response: No adverse reaction ko1 14:04 Drug: Clindamycin IVPB 900 mg IVPB once over 30 mins; (mix in 50 mL) Route: IVPB; ko1 Infused Over: 30 mins; Site: left antecubital; 14:42 Follow up: Response: No adverse reaction; IV Status: Completed infusion; IV Intake: [id number] Disposition Summary: 02/18/24 14:30 Discharge Ordered Notes: Location: Home rafaela Problem: new rafaela Symptoms: have improved rafaela Condition: Stable rafaela Diagnosis - Weakness rafaela - Hypokalemia rafaela - Dental root caries - ABSCESSES, PERIAPICAL rafaela Followup: rafaela - With: Private Physician - When: 2 - 3 days - Reason: Recheck today's complaints, Continuance of care, Re-evaluation by your physician Followup: rafaela - With: Juan Carlos Graham MD - When: 2 - 3 days - Reason: Recheck today's complaints, Re-evaluation by your physician Followup: rafaela - With: Christophe Anaya MD - When: 2 - 3 days - Reason: Recheck today's complaints, Re-evaluation by your physician Followup: rafaela - With: Rahat Pena DDS - When: 2 - 3 days - Reason: Recheck today's complaints, Re-evaluation by your physician Discharge Instructions: - Discharge Summary Sheet rafaela - Dental Caries, Adult rafaela - Potassium Content of Foods rafaela - Weakness rafaela - Fatigue rafaela - Dental Pain, [id number] rafaela - Weakness, Rfic-[id number] rafaela - Aspirin and Your Heart rafaela - Hypokalemia rafaela - Deconditioning rafaela - Dental Caries, Adult, [id number] rafaela Forms: - Work release form bd - Medication Reconciliation Form rafaela - Antibiotic Education rafaela - Prescription Opioid Use rafaela - Patient Portal Instructions rafaela - Leadership Thank You Letter [facility] Prescriptions: - Clindamycin HCl 300 mg Oral capsule - take 1 capsule ORAL route every 6 hours for 10 days; 28 capsule; Refills: 0, rafaela Product Selection Permitted - Folic Acid 1 mg Oral Tablet - take 1 tablet ORAL route once daily; 30 tablet; Refills: 0, Product Selection rafaela Permitted Signatures: Dispatcher [employer] EDОлег Gay MD MD cha Campbell, Kaitlyn RN RN kc6 Varsha Washington RN RN ko1 Alexander Santoyo RN RN tm6 Corrections: (The following items were deleted from the chart) 11:32 11:10 MR STROKE PROTOCOL+MRI.RAD.BRZ ordered. EDMS EDMS 11:37 11:37 SALICYLATE+C.LAB.BRZ ordered. EDMS EDMS 11:58 11:37 ACETAMINOPHEN+C.LAB.BRZ ordered. EDMS EDMS
--- NOTE | 2024-02-18 14:31 | ER ---
Nurse's Notes [facility] Name: Shivani Washington Age: 54 yrs Sex: Female : 1970 Arrival Date: 02/18/2024 Time: 10:21 Bed 7 Private MD: Diagnosis: Weakness;Hypokalemia;Dental root caries-ABSCESSES, PERIAPICAL Presentation: 02/17 10:30 Chief complaint: Patient states: about an hour ago woke up feeling like I couldn't tm6 breathe well, body aches, muscle tremors. I feel like I can't get air in my lungs. Coronavirus screen: Vaccine status: Patient reports receiving the 2nd dose of the covid vaccine. Ebola Screen: Patient negative for fever greater than or equal to 101.5 degrees Fahrenheit, and additional compatible Ebola Virus Disease symptoms Patient denies exposure to infectious person. Patient denies travel to an Ebola-affected area in the 21 days before illness onset. No symptoms or risks identified at this time. Initial Sepsis Screen: Does the patient meet any 2 criteria? RR > 20 per min. No. Patient's initial sepsis screen is negative. Does the patient have a suspected source of infection? No. Patient's initial sepsis screen is negative. Risk Assessment: Do you want to hurt yourself or someone else? Patient reports no desire to harm self or others. Onset of symptoms was February 18, 2024 at 09:30. 10:30 Method Of Arrival: Wheelchair tm6 10:30 Acuity: CHAITANYA 3 tm6 Triage Assessment: 10:31 General: Appears distressed, uncomfortable, Behavior is cooperative, anxious. Pain: tm6 Complains of pain in back, abdomen, right leg and left leg Pain currently is 8 out of 10 on a pain scale. Quality of pain is described as pinching, Pain began 1 hour ago. EENT: No signs and/or symptoms were reported regarding the EENT system. Neuro: Level of Consciousness is awake, alert, obeys commands, Oriented to person, place, time, situation, Reports muscle tremors. Cardiovascular: Patient's skin is warm and dry. Respiratory: Reports shortness of breath cough that is air hunger labored breathing Airway is patent Respiratory effort is labored, Respiratory pattern is tachypnea. GI: No signs and/or symptoms were reported involving the gastrointestinal system. : No signs and/or symptoms were reported regarding the genitourinary system. Derm: No signs and/or symptoms reported regarding the dermatologic system. Musculoskeletal: Reports muscle tremors. 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 - Infectious Disease History:: Denies. - Social history:: Smoking status: Patient denies any tobacco usage or history of. Patient/guardian denies using alcohol. Screenin:50 [facility] ED Fall Risk Assessment (Adult) History of falling in the last 3 months, ko1 including since admission No falls in past 3 months (0 pts) Confusion or Disorientation No (0 pts) Intoxicated or Sedated No (0 pts) Impaired Gait No (0 pts) Mobility Assist Device Used No (0 pt) Altered Elimination No (0 pt) Score/Fall Risk Level 0 - 2 = Low Risk Oriented to surroundings, Maintained a safe environment, Educated pt \T\ family on fall prevention, incl call for assistance when getting out of bed, Hourly rounding (assess needs \T\ fall precautionary measures) done. Abuse screen: Denies threats or abuse. Denies injuries from another. Nutritional screening: No deficits noted. Tuberculosis screening: No symptoms or risk factors identified. Assessment: 10:50 General: Appears distressed, ill, Behavior is cooperative, anxious. Pain: Complains of ko1 pain in all over. Neuro: No deficits noted. Cardiovascular: No deficits noted. Respiratory: Reports shortness of breath at rest. GI: No deficits noted. : No deficits noted. EENT: No deficits noted. Derm: No deficits noted. Musculoskeletal: No deficits noted. Vital Signs: 10:27 BP 149 / 101; Pulse 91; Resp 25; Temp 99(O); Pulse Ox 96% on R/A; Weight 81.65 kg; tm6 Height 5 ft. 5 in. ; Pain 8/10; 12:25 BP 150 / 88; Pulse 65; Resp 16 S; Pulse Ox 96% on R/A; kc6 14:40 BP 143 / 84; Pulse 62; Resp 15; Pulse Ox 100% ; ko1 10:27 Body Mass Index 29.95 (81.65 kg, 165.1 cm) tm6 10:27 Pain Scale: Adult tm6 ED Course: 10:23 Patient arrived in ED. mg5 10:24 Олег Navarro MD is Attending Physician. rafaela 10:31 Triage completed. tm6 10:31 Arm band placed on right wrist. tm6 10:49 SARS RAPID Sent. ko1 10:49 Flu Sent. ko1 10:49 Strep Sent. ko1 10:50 Varsha Washington, LEYDI is Primary Nurse. ko1 10:50 Patient has correct armband on for positive identification. Bed in low position. Call ko1 light in reach. Side rails up X2. Provided Education on: labs. Pulse ox on. NIBP on. Door closed. Noise minimized. Lights dimmed. Warm blanket given. Pillow given. 10:50 No provider procedures requiring assistance completed. COVID swab sent to lab. Flu ko1 and/or RSV swab sent to lab. Strep swab sent to lab. 11:20 Initial lab(s) drawn, by ia, sent to lab. Inserted saline lock: 22 gauge in left ko1 antecubital area, using aseptic technique. Blood collected. Flushed with 10 mL NS. 11:28 D-Dimer Sent. ko1 11:28 ETOH Level Sent. ko1 11:29 Throat Culture Sent. ko1 11:29 Lipase Sent. ko1 11:29 Basic Metabolic Panel Sent. ko1 11:29 CBC with Diff Sent. ko1 11:29 LFT's Sent. ko1 11:29 Troponin HS Sent. ko1 11:29 PT-INR Sent. ko1 11:29 NT PRO-BNP Sent. ko1 11:29 Magnesium Sent. ko1 11:32 CT Head Brain wo Cont In Process Unspecified. EDMS 11:56 Brain Wo Cont In Process Unspecified. EDMS 12:29 Asprin Sent. ko1 12:54 US Carotid Artery Bilateral In Process Unspecified. EDMS 13:33 XRAY Chest (1 view) In Process Unspecified. EDMS 13:42 CT Chest For PE Angio In Process Unspecified. EDMS 13:58 US Extremity Venous W Compression Ronnie In Process Unspecified. EDMS 14:30 Juan Carlos Graham MD is Referral Physician. rafaela 14:30 Christophe Anaya MD is Referral Physician. rafaela 14:30 Rahat Pena DDS is Referral Physician. rafaela 14:40 IV discontinued, intact, bleeding controlled, No redness/swelling at site. Pressure ko1 dressing applied. Administered Medications: 11:20 Drug: Ativan IVP 1 mg IVP once Route: IVP; Site: left antecubital; ko1 11:35 Follow up: Response: No adverse reaction; Anxiety unchanged ko1 11:27 Drug: NS 0.9% IV 1000 ml IV at 1 bolus Per protocol; 1000 mL bolus Route: IV; Rate: 1 ko1 bolus; Site: left antecubital; 11:28 Drug: Ativan IVP 1 mg IVP once Route: IVP; Site: left antecubital; ko1 11:43 Follow up: Response: No adverse reaction; Anxiety decreased ko1 12:25 Drug: foLIC Acid IVPB 1 mg IVPB once Route: IVPB; Site: left antecubital; kc6 14:04 Drug: NS 0.9% IV 1000 ml IV at 1 bolus Per protocol; 1000 mL bolus Route: IV; Rate: 1 ko1 bolus; Site: left antecubital; 14:42 Follow up: Response: No adverse reaction; IV Status: Completed infusion; IV Intake: ko1 1000ml 14:04 Drug: Potassium PO Effervescent Tablet 50 mEq PO once; dissolve in 4 ounces of water or ko1 juice Route: PO; 14:40 Follow up: Response: No adverse reaction ko1 14:04 Drug: Clindamycin IVPB 900 mg IVPB once over 30 mins; (mix in 50 mL) Route: IVPB; ko1 Infused Over: 30 mins; Site: left antecubital; 14:42 Follow up: Response: No adverse reaction; IV Status: Completed infusion; IV Intake: [id number] Medication: 10:50 VIS not applicable for this client. ko1 Intake: 14:42 IV: 1000ml; Total: 1000ml. ko1 14:42 IV: 50ml; Total: 1050ml. ko1 Outcome: 14:30 Discharge ordered by . rafaela 14:41 Discharged to home ambulatory, with family, ko1 14:41 Condition: improved 14:41 Discharge instructions given to patient, Instructed on discharge instructions, follow up and referral plans. 14:42 Demonstrated understanding of instructions, follow-up care, medications, Prescriptions ko1 given X 2, 14:53 Patient left the ED. ko1 Signatures: Dispatcher [employer] EDMS Олег Navarro MD MD cha Campbell, Kaitlyn, RN RN kc6 Varsha Washington RN RN ko1 Dulce Castro 5 Alexander Santoyo RN RN tm6 Corrections: (The following items were deleted from the chart) 11:58 11:40 ACETAMINOPHEN+[id number].LAB.BRZ drawn and sent. koLian EDRI
--- NOTE | 2024-02-18 15:09 | RAD REPORT ---
Procedure: Chest Single View History: Cough Comparison: none The lungs appear clear of acute infiltrate. No significant pleural effusion noted. The heart is normal size. IMPRESSION: No acute abnormality is displayed.
[2024-02-18 15:35] VITALS: TEMP 99
[2024-02-18 15:37] VITALS: BP 143/84; O2SAT 100
--- NOTE | 2024-02-19 12:20 | EKG ---
Test Date: 2024-02-18 Test Time: 12:22:39 Data Processing Consultant: MELISSA MEASUREMENT RESULTS: Intervals: Rate: 65 ME: 162 QRSD: 88 QT: 414 QTc: 430 [place]: P: 32 ME: 162 QRS: 23 T: 11 INTERPRETIVE STATEMENTS: Normal sinus rhythm Normal ECG Compared to ECG 11/08/2005 13:54:12 No significant changes Electronically Signed On 02-19-24 12:17:08 CDT by Ricardo Cole
== END 2024-02-18 14:53 | disposition home or self-care (01) ==
LOC: ER 10:21
DX: R53.1 Weakness (principal); E87.6 Hypokalemia; K04.7 Periapical abscess without sinus; K02.9 Dental caries, unspecified
CPT/HCPCS: 96365; 93005; 87070; 85025; 81001; 80048; 36415; 83735; 85610; 85379; 80076; 87081; 84484; 83690; 83880; 80307; 87804 ×2; 70450; 71275; 71045; 93880; 93970; 70551; 96375; 99284; 80143; 80179; 82077; 87811; Q9967; J7030 ×2

== ENCOUNTER 2024-06-04 09:00 | Emergency (ER) | payer OTHER ==
--- OUTSIDE RECORDS SUMMARY | 2024-06-04 09:03 | XMS REPORT | Continuity of Care Document ---
Author Name Unknown Address [address] [place] [address] [facility] thconnect Address [address] [place] [address] Care Team Providers Care Ticket Maker Name Role Phone EMEKAAURELIO Primary Care Physician Unavailab ELOY León Attending Clinician Unavailable ELOY WASHBURN Attending Clinician Unavailable ESTHER LENNON Attending Clinician Unavailable Esther Lennon MD Attending Clinician [phone] Eri Peters Attending Clinician [phone] ERI CARDONA Attending Clinician Unavailable Gabriela VILLAFANA Attending Clinician Unavailable Gabreila Arce Attending Clinician [phone] Doctor Unassigned, [place] Attending Clinician Alba Reyes RN Attending Clinician Unavailab nena Benson RN, Leonela De Jesus Attending Clinician Unavail able Kamaljit Boothe Attending Clinician [phone] KAMALJIT MORRIS Attending Clinician Unavailable ELOY WASHBURN Admitting Clinician Unavailable ESTHER LENNON Admitting Clinician Unavailable Problems Condition Name Condition Details Condition Category Status Onset Date Resolution Date Last Treatment Date Treating Clinician Comments Source Abdominal pain Abdominal pain Disease Active 08-09 00:00: 00 [facility] Allergies, Adverse Reactions, Alerts Allergy Name Allergy Type Status Severity Reaction(s) Onset Date Inactive Date Treating Clinician Comments Source NO KNOWN ALLERGIE S Drug Class Active [facility] Social History Social Habit Start Date Stop Date Quantity Comments Source [facility] to SARS[facility]2 (event) Not sure [facility] Alcohol intake 2023-03-16 00:00:00 2023-03-16 00:00:00 Current non-drinker of alcohol (finding) [facility] History of Social function 2018-12-08 00:00:00 2018-12-08 00:00:00 [facility] Tobacco use and exposure 2018-08-09 00:00:00 2018-08-09 00:00:00 Smokeless tobacco non-user [facility] Sex Assigned At 1970 00:00:00 1970 00:00:00 [facility] Smoking Status Start Date Stop Date Source Never smoked tobacco [facility] Medications Ordered Medication Name Filled Medication Name Start Date Stop Date Current Medication? Ordering Clinician Indication Dosage Frequency Signature (SIG) Comments Components Source KCL (KLOR-CON M20) tablet 40 mEq 2022-06 0 15:45: 00 03-16 16:03 :00 No 40meq 40 mEq, Oral, ONCE, 1 dose, On 03/16/23 at 1045, CANDE [facility] ketorolac (TORADOL) tablet 10 mg 2022-06 015 15:30: 00 03-16 14:50 :00 No 10mg 10 mg, Oral, ONCE, 1 dose, On 03/16/23 at 1030, Routine [facility] NaCl 0.9% (NS) bolus infusion 1,000 mL 2022-06 0 15:30: 00 03-16 16:18 :00 No 1000mL at 999 mL/hr, 1,000 mL, IV Infusion, ONCE, 1 dose, On 03/16/23 at 1030, CANDE [facility] naproxen (NAPROSYN) 500 mg tablet 2022-06 00:00: 00 Yes [id number] 500mg Take 1 tablet by mouth in the morning and 1 tablet in the evening. Take with meals. [facility] methocarbam oL 750 mg tablet 2022-06 00:00: 00 Yes [id number] 750mg Take 1 tablet by mouth 4 (four) times daily. [facility] KCL 20 mEq tablet 2022-06 00:00: 00 03-22 04:59 :00 No [id number] 20meq Take 1 tablet by mouth in the morning and 1 tablet in the evening. Do all this for 5 days. [facility] NaCl 0.9% (NS) bolus infusion 1,000 mL 02-22 23:15: 02-23 00:00 :00 No 1000mL at 999 mL/hr, 1,000 mL, IV Infusion, ONCE, 1 dose, On 02/22/23 at 1815, STAT [facility] ketorolac (TORADOL) injection 30 mg 02-22 22:45: 00 02-22 22:24 :00 No 30mg 30 mg, Slow IV Push, ONCE, 1 dose, On 02/22/23 at 1745, CANDE [facility] iopamidol (ISOVUE 370-500 mL) injection 80 mL 02-22 21:15: 00 02-22 21:25 :00 No 80mL 80 mL, Intravenou s, ONCE, 1 dose, On 02/22/23 at 1615, Routine [facility] ondansetron (ZOFRAN (PF)) injection 4 mg 02-22 20:15: 00 02-22 19:37 :00 No 4mg 4 mg, Slow IV Push, ONCE, 1 dose, On 02/22/23 at 1515, CANDE [facility] NaCl 0.9% (NS) bolus infusion 1,000 mL 02-22 20:00: 00 02-22 22:00 :00 No 1000mL at 999 mL/hr, 1,000 mL, IV Infusion, ONCE, 1 dose, On [facility] 02/22/23 at 1500, [facility] famotidine (PEPCID) 40 mg tablet 02-22 00:00: 00 Yes [id number] 40mg Take 1 tablet by mouth in the morning. [facility] ondansetron 4 mg disintegrat ing tablet 02-22 00:00: 00 Yes [id number] 4mg Take 1 tablet by mouth every 4 (four) hours as needed for Nausea and Vomiting (N/V). [facility] KCL (KLOR-CON M20) tablet 40 mEq 02-21 03:00: 00 02-21 02:57 :00 No 40meq 40 mEq, Oral, ONCE, 1 dose, On [place] 02/20/23 at 2200, [facility] ondansetron (ZOFRAN-ODT ) disintegrat ing tablet 4 mg 02-21 01:00: 00 02-21 00:52 :00 No 4mg 4 mg, Oral, ONCE, 1 dose, On [place] 02/20/23 at 2000, Routine [facility] naproxen (NAPROSYN) tablet 500 mg 07-15 02:30: 00 07-15 01:28 :00 No 500mg 500 mg, Oral, ONCE, 1 dose, On [facility] 07/14/21 at 2030, Routine [facility] naproxen (NAPROSYN) 500 mg tablet 07-14 00:00: 00 03-16 00:00 :00 No [id number] 500mg Take 1 tablet by mouth 2 (two) times daily with meals. [facility] albuterol 90 mcg/actuati on inhaler 11-29 00:00: 00 Yes [id number] 2{puff} Inhale 2 Puffs every 4 (four) hours as needed for Wheezing or Shortness of Breath. [facility] benzonatate 100 mg capsule 11-29 00:00: 00 Yes [id number] 100mg Take 1 capsule by mouth 3 (three) times daily as needed for Cough. [facility] levothyroxi ne 75 mcg tablet 12-09 01:05: 20 Yes 75ug Take 75 mcg by mouth every morning. [facility] levothyroxi ne 75 mcg tablet 12-08 20:05: 20 Yes 75ug Take 75 mcg by mouth every morning. [facility] dicyclomine (BENTYL) 20 mg tablet 07-06 00:00: 00 Yes [id number] 20mg Take 1 tablet by mouth 4 (four) times daily as needed for Abdominal pain. [facility] Vital Signs Vital Name Observation Time Observation Value Comments S ourkwesi Systolic blood pressure 2023-03-16 16:00:00 166 mm[Hg] [facility] Diastolic blood pressure 2023-03-16 16:00:00 96 mm[Hg] [facility] Heart rate 2023-03-16 16:00:00 66 /min [facility] Respiratory rate 2023-03-16 16:00:00 20 /min [facility] Oxygen saturation in Arterial blood by Pulse oximetry 2023-03-16 16:00:00 96 /min [facility] Body temperature 2023-03-16 15:56:00 35.56 Jane [facility] Body height 2023-03-16 14:14:00 167.6 cm [facility] Body weight 2023-03-16 14:14:00 78.926 kg [facility] BMI 2023-03-16 14:14:00 28.08 kg/m2 [facility] Systolic blood pressure 2023-02-22 23:24:00 137 mm[Hg] [facility] Diastolic blood pressure 2023-02-22 23:24:00 91 mm[Hg] [facility] Heart rate 2023-02-22 23:24:00 65 /min [facility] Respiratory rate 2023-02-22 23:24:00 20 /min [facility] Oxygen saturation in Arterial blood by Pulse oximetry 2023-02-22 23:24:00 99 /min [facility] Body temperature 2023-02-22 22:24:00 36.17 Jane [facility] Body weight 2023-02-22 18:55:00 80.74 kg [facility] BMI 2023-02-22 18:55:00 28.73 kg/m2 [facility] Systolic blood pressure 2023-02-21 02:15:29 141 mm[Hg] [facility] Diastolic blood pressure 2023-02-21 02:15:29 107 mm[Hg] [facility] Heart rate 2023-02-21 02:15:29 79 /min Unive [facility] Respiratory rate 2023-02-21 02:15:29 19 /min [facility] Oxygen saturation in Arterial blood by Pulse oximetry 2023-02-21 02:15:29 97 /min [facility] Body temperature 2023-02-21 00:56:51 36.5 Jane [facility] Body height 2023-02-20 23:07:00 167.6 cm [facility] Body weight 2023-02-20 23:07:00 80.74 kg [facility] BMI 2023-02-20 23:07:00 28.73 kg/m2 [facility] Systolic blood pressure 2021-07-15 00:41:00 143 mm[Hg] [facility] Diastolic blood pressure 2021-07-15 00:41:00 97 mm[Hg] [facility] Heart rate 2021-07-15 00:41:00 95 /min Unive [facility] Body temperature 2021-07-15 00:41:00 36.56 Jane [facility] Respiratory rate 2021-07-15 00:41:00 18 /min [facility] Body weight 2021-07-15 00:41:00 77.111 kg [facility] BMI 2021-07-15 00:41:00 27.44 kg/m2 [facility] Oxygen saturation in Arterial blood by Pulse oximetry 2021-07-15 00:41:00 100 /min [facility] Systolic blood pressure 2019-12-01 04:30:00 120 mm[Hg] [facility] Diastolic blood pressure 2019-12-01 04:30:00 84 mm[Hg] [facility] Heart rate 2019-12-01 04:30:00 70 [facility] 2019-12-01 04:30:00 15 /min [facility] Oxygen saturation in Arterial blood by Pulse oximetry 2019-12-01 04:30:00 100 /min [facility] Body temperature 2019-12-01 02:52:00 37.11 Jane [facility] Body weight 2019-12-01 02:52:00 77.111 kg [facility] BMI 2019-12-01 02:52:00 27.44 kg/m2 [facility] Procedures Procedure Date / Time Performed Performing Clinician Source COMP. METABOLIC PANEL ([id number]) 2023-03-16 14:38:00 Eloy Washburn [facility] CBC WITH DIFF 2023-03-16 14:38:00 Eloy Washburn [facility] URINALYSIS 2023-03-16 14:38:00 Eloy Washburn [facility] URINE DRUG (IMMUNOASSAY) - COMPREHENSIVE DRUG SCREEN W/O REFLEX 2023-03-16 14:38:00 Eloy Washburn [facility] HB ECG ROUTINE & RHYTHM STRIP 2023-03-16 14:11:28 Maddison [facility] CONSENT/REFUSAL FOR DIAGNOSIS AND TREATMENT 2023-03-16 14:05:43 Doctor Unassigned, [place] [facility] CT ABDOMEN PELVIS W CONTRAST 2023-02-22 21:24:57 Esther Lennon [facility] LACTIC ACID WHOLE BLOOD 2023-02-22 19:39:00 Do justice Lennon [facility] CREATINE KINASE 2023-02-22 19:38:00 [facility] 2023-02-22 19:38:00 Esther Lennon [facility] MAGNESIUM 2023-02-22 19:38:00 [facility] COMP. METABOLIC PANEL ([id number]) 2023-02-22 19:38:00 Esther Lennon [facility] CBC WITH DIFF 2023-02-22 19:38:00 Esther Lennon [facility] URINALYSIS 2023-02-22 19:38:00 [facility] URINE DRUG (IMMUNOASSAY) - COMPREHENSIVE DRUG SCREEN W/O REFLEX 2023-02-22 19:38:00 Esther Lennon [facility] CONSENT/REFUSAL FOR DIAGNOSIS AND TREATMENT 2023-02-22 18:49:26 Doctor Unassigned, [place] [facility] LIPASE 2023-02-21 02:04:00 Eri Cardona [facility] COMP. METABOLIC PANEL ([id number]) 2023-02-21 02:04:00 Eri Cardona [facility] CBC WITH DIFF 2023-02-21 02:04:00 Eri Cardona [facility] POCT GLUCOSE (AUTOMATED) 2023-02-21 01:50:00 Denilson Cardona [facility] URINALYSIS 2023-02-21 00:52:00 Eri Cardona [facility] ASSIGNMENT OF BENEFITS 2023-02-21 00:10:31 Docto r Unassigned, [place] [facility] RAPID INFLUENZA A/B 2023-02-21 00:05:00 Eri Cardona [facility] COVID-19 (ID NOW RAPID TESTING) 2023-02-21 00:05:00 Eri Cardona [facility] CONSENT/REFUSAL FOR DIAGNOSIS AND TREATMENT 2023-02-20 22:56:07 Doctor Unassigned, [place] [facility] NOTICE OF PRIVACY PRACTICES 2021-07-15 00:35:54 Doctor Unassigned, [place] [facility] CONSENT/REFUSAL FOR DIAGNOSIS AND TREATMENT 2021-07-15 00:35:24 Doctor Unassigned, [place] [facility] XR CHEST 1 VW 2019-12-01 03:35:08 Kamaljit Morris [facility] TROPONIN I 2019-12-01 03:08:00 Kamaljit Morris [facility] EKG-12 LEAD 2019-12-01 02:57:43 Kamaljit Morris [facility] ASSIGNMENT OF BENEFITS 2019-12-01 02:30:55 Docto r Unassigned, [place] [facility] CONSENT/REFUSAL FOR DIAGNOSIS AND TREATMENT 2019-12-01 02:30:26 Doctor Unassigned, [place] [facility] AUTHORIZATION FOR RELEASE OF PHI 2019-01-22 05:01:00 Doctor Unassigned, [place] [facility] Encounters Start Date/Time End Date/Time Encounter Type Admission Type Attending [facility] Facility Care Department Encounter ID Source 2023-03-26 14:50:11 2023-03-26 14:50:11 Outpatient [facility] [id number] Kartik Esteves 2023-03-16 09:08:00 2023-03-16 11:21:00 Emergency ELOY FLEMING [facility] ERT [id number] [facility] 2023-03-16 09:08:00 2023-03-16 11:21:00 Emergency WashburnJeet shieldsEloy [facility] 1.2.840.114 350.1.13.10 4.2.7.2.686 [id number] [facility] 2023-02-22 13:57:00 2023-02-22 19:30:00 Emergency X ESTHER LENNON [facility] ERT [id number] [facility] 2023-02-22 13:57:00 2023-02-22 19:30:00 Emergency Saji Esther [facility] 1.2.840.114 350.1.13.10 4.2.7.2.686 [id number] [facility] 2023-02-20 18:08:00 2023-02-20 22:50:00 Emergency Eri Cardona [facility] 1.2.840.114 350.1.13.10 4.2.7.2.686 [id number] [facility] 2023-02-20 18:08:00 2023-02-20 22:50:00 Emergency X ERI CARDONA [facility] ERT [id number] [facility] 2021-07-14 18:42:00 2021-07-14 19:43:00 Emergency X Gabriela VILLAFANA [facility] ERT [id number] [facility] 2021-07-14 18:42:00 2021-07-14 19:43:00 Emergency Gabriela Villafana [facility] 1.2.840.114 350.1.13.10 4.2.7.2.686 [id number] [facility] 2021-07-14 00:00:00 2021-07-14 00:00:00 Orders Only Doctor Unassigned, [place] [facility] 1.2.840.114 350.1.13.10 4.2.7.2.686 [id number] [facility] 2019-12-06 00:00:00 2019-12-06 00:00:00 Letter (Out) Alba Chen [facility] 1.2.840.114 350.1.13.10 4.2.7.2.686 [id number] [facility] 2019-12-05 00:00:00 2019-12-05 00:00:00 Telephone Leonela Benson [facility] 1.2.840.114 350.1.13.10 4.2.7.2.686 [id number] [facility] 2019-11-30 21:33:45 2019-11-30 23:43:00 Emergency Kamaljit Morris [facility] 1.2.840.114 350.1.13.10 4.2.7.2.686 [id number] [facility] 2019-11-30 21:33:45 2019-11-30 21:33:45 Emergency X KAMALJIT MORIRS [facility] ERT [id number] [facility] 2019-11-30 00:00:00 2019-11-30 00:00:00 Orders Only Doctor Unassigned, [place] [facility] 1.2.840.114 350.1.13.10 4.2.7.2.686 [id number] [facility] 2019-01-22 00:00:00 2019-01-22 00:00:00 Orders Only Doctor Unassigned, [place] [facility] 1.2.840.114 350.1.13.10 4.2.7.2.686 [id number] [facility] Results Test Description Test Time Test Comments Results Result Co mments Source [facility] WITH [id number] 15:04:12* Test Item Value Reference Range Interpretation Comme nts WBC (test code = 6690-2) 5.05 See_Comment [Automated messa ge] The system which generated this result transmitted reference range: 4.30 - 11.10 10*3/?L. The reference range was not used to interpret this result as normal/abnormal. RBC (test code = 789-8) 4.56 See_Comment [Automated Product Worlda ge] The system which generated this result [...] 34.5 g/dL 31.6-35.1 RDW-SD (test code = 56245-0) 41.0 fL 39.0-49.9 RDW-CV (test code = 788-0) 12.9 % 12.0-15.5 PLT (test code = 777-3) 211 See_Comment [Automated messa ge] The system which generated this result transmitted reference range: 166 - 358 10*3/?L. The reference range was not used to interpret this result as normal/abnormal. MPV (test code = 68959-6) 9.6 fL 9.5-12.9 NRBC/100 WBC (test code = 1533865192) 0.0 See_Comment [Automated me ssage] The system which generated this result transmitted reference range: 0.0 - 10.0 /100 WBCs. The reference range was not used to interpret this result as normal/abnormal. NRBC x10^3 (test code = 9283187323) See_Comment [Automated me ssage] The system which generated this result transmitted reference range: 10*3/?L. The reference range was not used to interpret this result as normal/abnormal. GRAN MAT (NEUT) % (test code = 770-8) 56.4 % IMM GRAN % (test code = 9894386902) 0.40 % LYMPH % (test code = 736-9) 28.1 % MONO % (test code = 5905-5) 11.7 % EOS % (test code = 713-8) 2.6 % BASO % (test code = 706-2) 0.8 % GRAN MAT x10^3(ANC) (test code = 7478874852) 2.85 10*3/uL 1.88-7.09 IMM GRAN x10^3 (test code = 4183085697) 0.00-0.06 LYMPH x10^3 (test code = 731-0) 1.42 10*3/uL 1.32-3.29 MONO x10^3 (test code = 742-7) 0.59 10*3/uL 0.33-0.92 EOS x10^3 (test code = 711-2) 0.13 10*3/uL 0.03-0.39 BASO x10^3 (test code = 704-7) 0.04 10*3/uL 0.01-0.07 [facility] Whole [id number] 19:45:55* Test Item Value Reference Range Interpretation Comme nts LACTIC ACID (test code = 5034213353) 1.58 mmol/L 0.50-2.20 Lab Interpretation (test cod e = 04336-9) Normal [facility]. METABOLIC PANEL ([id number])2023-02-21 02:58:07* Test Item Value Reference Range Interpretation Comme nts NA (test code = 8649300556) 136 mmol/L 135-145 K (test code = 7037176127) 2.9 mmol/L 3.5-5.0 LL CL (test code = 6100384596) 99 mmol/L 98-108 CO2 TOTAL (test code = 9306047435) 21 mmol/L 23-31 L AGAP (test code = 4335806898) 16 2-16 BUN (test code = 4239674096) 22 mg/dL 7-23 GLUCOSE (test code = 4090133690) 101 mg/dL 70-110 CREATININE (test code = 0222752293) 0.99 mg/dL 0.50-1.04 TOTAL BILI (test code = 2414011980) 1.3 mg/dL 0.1-1.1 H CALCIUM (test code = 5728706431) 9.9 mg/dL 8.6-10.6 T PROTEIN (test code = 4032045751) 9.2 g/dL 6.3-8.2 H ALBUMIN (test code = 3502552887) 4.7 g/dL 3.5-5.0 ALK PHOS (test code = 2429673776) 85 U/L 34-122 ALTv (test code = 1742-6) 118 U/L 5-35 H AST(SGOT) (test code = 6743147000) 104 U/L 13-40 H eGFR (test code = 4123943728) 58.5 mL/min/1.73m2 SAPPHIRE (test code = SAPPHIRE) [...] imaging tests). Lab Interpretation (test code = 79321-6) Abnormal [facility] WITH [id number] 02:50:32* Test Item Value Reference Range Interpretation Comme nts WBC (test code = 6690-2) 11.84 See_Comment H [Automated Product World[employer] Things] The system which generated this result transmitted reference range: 4.30 - 11.10 10*3/?L. The reference range was not used to interpret this result as normal/abnormal. RBC (test code = 789-8) 5.51 See_Comment H [Automated Product [employer]] The system which generated this result transmitted [...] g/dL 31.6-35.1 H RDW-SD (test code = 50655-8) 39.8 fL 39.0-49.9 RDW-CV (test code = 788-0) 13.2 % 12.0-15.5 PLT (test code = 777-3) 379 See_Comment H [Automated messa ge] The system which generated this result transmitted reference range: 166 - 358 10*3/?L. The reference range was not used to interpret this result as normal/abnormal. MPV (test code = 84544-6) 9.8 fL 9.5-12.9 NRBC/100 WBC (test code = 7604592607) 0.0 See_Comment [Automated FanMiles ssage] The system which generated this result transmitted reference range: 0.0 - 10.0 /100 WBCs. The reference range was not used to interpret this result as normal/abnormal. NRBC x10^3 (test code = 4877324473) See_Comment [Automated Product Worlda ge] The system which generated this result transmitted reference range: 10*3/?L. The reference range was not used to interpret this result as normal/abnormal. GRAN MAT (NEUT) % (test code = 770-8) 57.8 % IMM GRAN % (test code = 2673264462) 1.20 % LYMPH % (test code = 736-9) 23.4 % MONO % (test code = 5905-5) 15.3 % EOS % (test code = 713-8) 1.5 % BASO % (test code = 706-2) 0.8 % GRAN MAT x10^3(ANC) (test code = 1147564451) 6.84 10*3/uL 1.88-7.09 IMM GRAN x10^3 (test code = 4139732573) 0.14 10*3/uL 0.00-0.06 H LYMPH x10^3 (test code = 731-0) 2.77 10*3/uL 1.32-3.29 MONO x10^3 (test code = 742-7) 1.81 10*3/uL 0.33-0.92 H EOS x10^3 (test code = 711-2) 0.18 10*3/uL 0.03-0.39 BASO x10^3 (test code = 704-7) 0.10 10*3/uL 0.01-0.07 H Lab Interpretation (test code = 10721-4) [facility] 02:48:29* Test Item Value Reference Range Interpretation Comme nts LIPASE (test code = 9047026935) 201 U/L 0-220 Lab Interpretation (test cod e = 24832-4) Normal [facility]2023-02-21 01:52:26* Test Item Value Reference Range Interpretation Comme nts POCT GLU (test code = 7324903635) 99 mg/dL 70-110 Lab Interpretation (test cod e = 62565-9) Normal [facility] [id number] 04:33:08No acute intrathoracic abnormality. Preliminary Report Dictated by Resident: Kumar Hall MD., have reviewed this study and agree with the abovereport.PROCEDURE: XR CHEST 1 VW CLINICAL INDICATION: cough, shortness of breath COMPARISON: None FINDINGS: The lungs are clear. No pleural effusion or pneumothorax is seen. The heartis normal in size. No acute bony abnormality. Surgical clips overlie the right axilla. [facility], Radiant Results Inft User - 11/30/2019 11:34 PM CDTPROCEDURE: XR CHEST 1 VWCLINICAL INDICATION: cough, shortness of breath COMPARISON: NoneFINDINGS:The lungs are clear. No pleural effusion or pneumothorax is seen. The heartis normal in size.No acute bony abnormality. Surgical clips overlie the right axilla.IMPRESSIONNo acute intrathoracic abnormality.Preliminary Report Dictated by Resident: Kumar Marinelli MD., have reviewed this study and agree with the abovereport.[facility] 2019-12-01 03:43:00* Test Item Value Reference Range Interpretation Comme nts TROPONIN I (test code = 6771084382) <0.012 See_Comment [Automated message] The system which [...] biotin. ? Lab Interpretation (test code = 42810-1) Normal [facility]"
[2024-06-04] MEDS ORDERED: LEVALBUTEROL 1.25 MG/3 ML NEB ONE (09:28)
[2024-06-04] MEDS ORDERED: IPRATROPIUM BROM 0.5MG/2.5ML ONE (09:28)
[2024-06-04] MEDS ORDERED: dexAMETHasone 4 MG/ML VIAL ONE (09:29)
[2024-06-04] MEDS ORDERED: predniSONE 20 MG TAB ONE (09:29)
[2024-06-04] MEDS ORDERED: AZITHROMYCIN 250 MG TAB ONE (09:29)
[2024-06-04] MEDS ORDERED: CEFTRIAXONE 1000 MG/VIAL ONE (09:41)
[2024-06-04] MEDS ORDERED: LIDOCAINE 1% MPF 5 ML VIAL ONE (09:42)
[2024-06-04 09:47] LABS: SARS-CoV-2 Antigen CONTROL BLUE LINE VIS/BG OK; SARS-CoV-2 Antigen Rapid Res Negative (Negative)
--- NOTE | 2024-06-04 10:30 | RAD REPORT ---
EXAMINATION: TWO VIEW CHEST XR CLINICAL INDICATION: Female, 54 years old. [facility] Cough;Chest pain Bed Name: 16 TECHNIQUE: 2 view radiographs of the chest were performed. COMPARISON: 02/18/2024 FINDINGS: The lungs are well inflated and clear. No pneumothorax or sizable effusion. The heart is normal in si ze. Mediastinal contours are unremarkable. IMPRESSION: No acute or significant abnormalities.
--- NOTE | 2024-06-04 10:31 | ER ---
Nurse's Notes [facility] Name: Shivani Washington Age: 54 yrs Sex: Female : 1970 Arrival Date: 06/04/2024 Time: 09:00 Bed 16 Private MD: Diagnosis: Cough;Acute bronchospasm;Acute upper respiratory infection, unspecified Presentation: 06/04 09:13 Chief complaint: Patient states: Cough times 2 weeks. Coronavirus screen: At this time, ld1 the client does not indicate any symptoms associated with coronavirus-19. Ebola Screen: No symptoms or risks identified at this time. Risk Assessment: Do you want to hurt yourself or someone else? Patient reports no desire to harm self or others. Onset of symptoms was June 04, 2024. 09:13 Method Of Arrival: Ambulatory ld1 09:13 Acuity: CHAITANYA 4 ld1 09:17 Initial Sepsis Screen: Does the patient meet any 2 criteria? No. Patient's initial ld1 sepsis screen is negative. Does the patient have a suspected source of infection? No. Patient's initial sepsis screen is negative. Triage Assessment: 09:13 General: Appears in no apparent distress. comfortable, Behavior is calm, cooperative, ld1 appropriate for age. Pain: Denies pain. EENT:. Neuro: Level of Consciousness is awake, alert, obeys commands, Oriented to person, place, time, situation. Cardiovascular: Capillary refill < 3 seconds Patient's skin is warm and dry. Respiratory: Airway is patent Respiratory effort is even, unlabored. Respiratory: Reports cough that is non-productive. GI: No signs and/or symptoms were reported involving the gastrointestinal system. : No signs and/or symptoms were reported regarding the genitourinary system. Derm: No signs and/or symptoms reported regarding the dermatologic system. Musculoskeletal: No signs and/or symptoms reported regarding the musculoskeletal system. Historical: - Allergies: 09:12 No Known Allergies; ld1 - PMHx: 09:12 None; ld1 - PSHx: 09:12 Appendectomy; ld1 - Immunization history:: Adult Immunizations up to date. - Infectious Disease History:: Denies. - Social history:: Smoking status: Patient denies any tobacco usage or history of. Screenin:15 [facility] ED Fall Risk Assessment (Adult) History of falling in the last 3 months, ld1 including since admission No falls in past 3 months (0 pts) Confusion or Disorientation No (0 pts) Intoxicated or Sedated No (0 pts) Impaired Gait No (0 pts) Mobility Assist Device Used No (0 pt) Altered Elimination No (0 pt) Score/Fall Risk Level 0 - 2 = Low Risk Oriented to surroundings, Maintained a safe environment, Educated pt \T\ family on fall prevention, incl call for assistance when getting out of bed, Assessed \T\ reinforced patient's understanding of fall precautions, Provided non-skid footwear, Hourly rounding (assess needs \T\ fall precautionary measures) done, Used ambulatory aids as needed (educated on \T\ assisted with), Used gait belt as appropriate. Abuse screen: Denies threats or abuse. Denies injuries from another. Nutritional screening: No deficits noted. Tuberculosis screening: No symptoms or risk factors identified. Assessment: 09:15 Reassessment: See triage assessment. ld1 Vital Signs: 09:15 Weight 70.31 kg; Height 5 ft. 4 in. ; Pain 0/10; ld1 09:15 Resp 18; Temp 97.8(TE); ld1 09:17 BP 123 / 98; Pulse 65; Resp 18; Pulse Ox 99% on R/A; ld1 11:31 BP 116 / 89; Pulse 70; Resp 15 S; Pulse Ox 98% on R/A; kc6 09:15 Body Mass Index 26.61 (70.31 kg, 162.56 cm) ld1 09:15 Pain Scale: Adult ld1 ED Course: 09:03 Patient arrived in ED. sj2 09:12 Олег Navarro MD is Attending Physician. rafaela 09:12 Rina Chan, LEYDI is Primary Nurse. ld1 09:13 Arm band placed on right wrist. ld1 09:14 Triage completed. ld1 09:15 Patient has correct armband on for positive identification. Placed in gown. Bed in low ld1 position. Call light in reach. Side rails up X2. sports medicine specialist on. Pulse ox on. NIBP on. Door closed. Noise minimized. Warm blanket given. 09:15 No provider procedures requiring assistance completed. ld1 09:25 SARS RAPID Sent. ld1 09:25 Flu Sent. ld1 09:30 Chest Pa And Lat (2 Views) XRAY In Process Unspecified. EDMS 09:36 SARS RAPID Sent. ld1 09:36 Flu Sent. ld1 11:31 Patient did not have IV access during this emergency room visit. kc6 Administered Medications: 09:36 Drug: AZITHromycin PO 500 mg PO once Route: PO; ld1 09:36 Drug: predniSONE PO 60 mg PO once Route: PO; ld1 09:36 Drug: Levalbuterol Inhalation 2.5 mg Inhalation once Route: Inhalation; ld1 09:36 Drug: Ipratropium Inhalation Aerosol 0.5 mg Inhalation once Route: Inhalation; ld1 09:36 Drug: Dexamethasone PO 1 mg PO once; add to nebulizer Route: PO; ld1 09:53 Drug: Rocephin (cefTRIAXone) IM 1 grams IM once Route: IM; Site: left deltoid; ld1 Medication: 11:31 VIS not applicable for this client. kc6 Outcome: 10:30 Discharge ordered by . rafaela 11:31 Discharged to home ambulatory, [facility] 11:31 Condition: good 11:31 Discharge instructions given to patient, Instructed on discharge instructions, follow up and referral plans. medication usage, Demonstrated understanding of instructions, follow-up care, medications, Prescriptions given X 4, 11:31 Patient left the ED. kc6 Signatures: Dispatcher [employer] Олег Figueroa MD MD cha Sims, Lauren, RN RN ld1 Danya Murray RN RN kc6 Chalino Mcpherson [facility] [place]
--- NOTE | 2024-06-04 10:31 | EDPHYS ---
Physician Documentation [facility] Name: Shivani Washington Age: 54 yrs Sex: Female : 1970 Arrival Date: 06/04/2024 Time: 09:00 Bed 16 Private MD: ED Physician Олег Navarro HPI: 06/04 09:26 This 54 yrs old Female presents to ER via Ambulatory with complaints of rafaela Cough, Fever. 09:26 The patient or guardian reports airway noise, cough, that is intermittent, difficulty rafaela breathing. Onset: The symptoms/episode began/occurred 3 day(s) ago. Severity of symptoms: At their worst the symptoms were mild, in the emergency department the symptoms are unchanged. Historical: - Allergies: 09:12 No Known Allergies; ld1 - PMHx: 09:12 None; ld1 - PSHx: 09:12 Appendectomy; ld1 - Immunization history:: Adult Immunizations up to date. - Infectious Disease History:: Denies. - Social history:: Smoking status: Patient denies any tobacco usage or history of. ROS: 09:28 Eyes: Negative for injury, pain, redness, and discharge, ENT: Negative for injury, rafaela pain, and discharge, Neck: Negative for injury, pain, and swelling, Cardiovascular: Negative for chest pain, palpitations, and edema, Abdomen/GI: Negative for abdominal pain, nausea, vomiting, diarrhea, and constipation, Back: Negative for injury and pain, : Negative for injury, bleeding, discharge, and swelling, MS/Extremity: Negative for injury and deformity, Skin: Negative for injury, rash, and discoloration, Neuro: Negative for headache, weakness, numbness, tingling, and seizure, Psych: Negative for depression, anxiety, suicide ideation, homicidal ideation, and hallucinations, Allergy/Immunology: Negative for hives, rash, and allergies, Endocrine: Negative for neck swelling, polydipsia, polyuria, polyphagia, and marked weight changes, Hematologic/Lymphatic: Negative for swollen nodes, abnormal bleeding, and unusual bruising, :28 Constitutional: Positive for body aches, chills, fatigue, fever, malaise, :28 Respiratory: Positive for cough, "sounds productive", shortness of breath, at rest. Exam: : Constitutional: This is a well developed, well nourished patient who is awake, alert, rafaela and in no acute distress. Head/Face: Normocephalic, atraumatic. Eyes: Pupils equal round and reactive to light, extra-ocular motions intact. Lids and lashes normal. Conjunctiva and sclera are non-icteric and not injected. Cornea within normal limits. Periorbital areas with no swelling, redness, or edema. ENT: Nares patent. No nasal discharge, no septal abnormalities noted. Tympanic membranes are normal and external auditory canals are clear. Oropharynx with no redness, swelling, or masses, exudates, or evidence of obstruction, uvula midline. Mucous membranes moist. Neck: Trachea midline, no thyromegaly or masses palpated, and no cervical lymphadenopathy. Supple, full range of motion without nuchal rigidity, or vertebral point tenderness. No Meningismus. Chest/axilla: Normal chest wall appearance and motion. Nontender with no deformity. No lesions are appreciated. Cardiovascular: Regular rate and rhythm with a normal S1 and S2. No gallops, murmurs, or rubs. Normal PMI, no JVD. No pulse deficits. Abdomen/GI: Soft, non-tender, with normal bowel sounds. No distension or tympany. No guarding or rebound. No evidence of tenderness throughout. Back: No spinal tenderness. No costovertebral tenderness. Full range of motion. Skin: Warm, dry with normal turgor. Normal color with no rashes, no lesions, and no evidence of cellulitis. MS/ Extremity: Pulses equal, no cyanosis. Neurovascular intact. Full, normal range of motion., bilateral aka Neuro: Awake and alert, GCS 15, oriented to person, place, time, and situation. Cranial nerves II-XII grossly intact. Motor strength 5/5 in all extremities. Sensory grossly intact. Cerebellar exam normal. Normal gait. Psych: Awake, alert, with orientation to person, place and time. Behavior, mood, and affect are within normal limits. 09:28 Respiratory: the patient does not display signs of respiratory distress, Respirations: normal, no acute changes, labored breathing, is not present, Breath sounds: bronchial sounds, that are mild, are scattered, decreased breath sounds, that are mild, are scattered, rhonchi, that are mild, are located in both bases, stridor, is not appreciated, + upper airway congestion. Respiratory rate: 18 Vital Signs: 09:15 Weight 70.31 kg; Height 5 ft. 4 in. ; Pain 0/10; ld1 09:15 Resp 18; Temp 97.8(TE); ld1 09:17 BP 123 / 98; Pulse 65; Resp 18; Pulse Ox 99% on R/A; ld1 11:31 BP 116 / 89; Pulse 70; Resp 15 S; Pulse Ox 98% on R/A; kc6 09:15 Body Mass Index 26.61 (70.31 kg, 162.56 cm) ld1 09:15 Pain Scale: Adult ld1 MDM: 09:12 Medical Screening Exam initiated [facility] 06/04 09:13 Order name: Flu; Complete Time: 10:30 [facility] 06/04 09:13 Order name: SARS RAPID; Complete Time: 10:30 [facility] 06/04 09:13 Order name: Chest Pa And Lat (2 Views) XRAY rafaela Administered Medications: 09:36 Drug: AZITHromycin PO 500 mg PO once Route: PO; ld1 09:36 Drug: predniSONE PO 60 mg PO once Route: PO; ld1 09:36 Drug: Levalbuterol Inhalation 2.5 mg Inhalation once Route: Inhalation; ld1 09:36 Drug: Ipratropium Inhalation Aerosol 0.5 mg Inhalation once Route: Inhalation; ld1 09:36 Drug: Dexamethasone PO 1 mg PO once; add to nebulizer Route: PO; ld1 09:53 Drug: Rocephin (cefTRIAXone) IM 1 grams IM once Route: IM; Site: left deltoid; ld1 Disposition Summary: 06/04/24 10:30 Discharge Ordered Notes: Location: Home [facility] Problem: new rafaela Symptoms: have improved rafaela Condition: Stable rafaela Diagnosis - Cough rafaela - Acute bronchospasm rafaela - Acute upper respiratory infection, unspecified rafaela Followup: rafaela - With: Private Physician - When: 2 - 3 days - Reason: Recheck today's complaints, Continuance of care, Re-evaluation by your physician Discharge Instructions: - Discharge Summary Sheet rafaela - Bronchospasm, Adult rafaela - Upper Respiratory Infection, Adult rafaela - Cool Mist Vaporizer rafaela - Upper Respiratory Infection, Adult, [id number] rafaela - Cough, Adult, [id number] rafaela - Bronchospasm, Adult, [id number] rafaela - Cough, Adult rafaela Forms: - Medication Reconciliation Form rafaela - Antibiotic Education rafaela - Prescription Opioid Use rafaela - Patient Portal Instructions rafaela - Leadership Thank You Letter rafaela - Work release form kc6 Prescriptions: - albuterol sulfate 90 mcg/actuation Inhalation HFA Aerosol Inhaler - inhale 2 puff INHALATION route every 4 to 6 hours; 1 unit; Refills: 0, Product [facility] Selection Permitted - Tessalon Perles 100 mg Oral capsule - take 1 capsule ORAL route every 8 hours As needed; 30 capsule; Refills: 0, [facility] Product Selection Permitted - Prednisone 20 mg Oral Tablet - take 2 tablets ORAL route once daily for 5 days; 10 tablet; Refills: 0, Product [facility] Selection Permitted - Zithromax 500 mg Oral tablet - take 1 tablet ORAL route once daily for 5 days; 5 tablet; Refills: 0, Product [facility] Selection Permitted Signatures: Dispatcher [employer] EDMS Олег Navarro MD MD cha Sims, Lauren RN RN ld1 Corrections: (The following items were deleted from the chart) 09:13 09:13 Influenza Screen (A \\T\\ B)+BA.LAB.BRZ ordered. EDMS EDMS 09:13 09:13 SARS-COV-2 Antigen Rapid+I.LAB.BRZ ordered. EDMS EDMS 09:14 09:14 Chest Pa And Lat (2 Views)+RAD.RAD.BRZ ordered. EDMS EDMS
[2024-06-04 13:49] VITALS: BP 99/64; TEMP 97.7; O2SAT 97
== END 2024-06-04 11:31 | disposition home or self-care (01) ==
LOC: ER 09:00
DX: J98.01 Acute bronchospasm (principal); J06.9 Acute upper respiratory infection, unspecified; Z11.52 Encounter for screening for COVID-19
CPT/HCPCS: 36415; 87804 ×2; 71046; 96372; 99285; 87811; J7512; J1100; J2003; J7614; J7644; J0696

== ENCOUNTER 2024-06-13 17:28 | Emergency (ER) | payer OTHER ==
--- OUTSIDE RECORDS SUMMARY | 2024-06-13 17:32 | XMS REPORT | Continuity of Care Document ---
Author Name Unknown Address [address] [facility] [address] [place] [address] [facility] thconnect Address [address] [address] [place] [address] Care Team Providers Care Database Marketing Specialist Name Role Phone AURELIO HENDRICKSON Primary Care Physician Unavailab ELOY León Attending Clinician Unavailable ELOY WASHBURN Attending Clinician Unavailable ESTHER LENNON Attending Clinician Unavailable Esther Lennon MD Attending Clinician [phone] Eri Peters Attending Clinician [phone] ERI CARDONA Attending Clinician Unavailable Gabriela VILLAFANA Attending Clinician Unavailable Gabriela Arce Attending Clinician [phone] Doctor Unassigned, [place] Attending Clinician Alba Reyes RN Attending Clinician Unavailab Leonela Torres RN Attending Clinician Unavail able Kamaljit Boothe Attending Clinician [phone] KAMALJIT MORRIS Attending Clinician Unavailable ELOY WASHBURN Admitting Clinician Unavailable ESTHER LENNON Admitting Clinician Unavailable Problems Condition Name Condition Details Condition Category Status Onset Date Resolution Date Last Treatment Date Treating Clinician Comments Source Abdominal pain Abdominal pain Disease Active 08-09 00:00: 00 [facility] Allergies, Adverse Reactions, Alerts Allergy Name Allergy Type Status Severity Reaction(s) Onset Date Inactive Date Treating Clinician Comments Source NO KNOWN ALLERGIE S Drug Class Active [facility] Social History Social Habit Start Date Stop Date Quantity Comments Source [facility] to SARS-[facility]-2 (event) Not sure [facility] Alcohol intake 2023-03-16 00:00:00 2023-03-16 00:00:00 Current non-drinker of alcohol (finding) [facility] History of Social function 2018-12-08 00:00:00 2018-12-08 00:00:00 [facility] Tobacco use and exposure 2018-08-09 00:00:00 2018-08-09 00:00:00 Smokeless tobacco non-user [facility] Sex Assigned At 1970 00:00:00 1970 00:00:00 [facility] Smoking Status Start Date Stop Date Source Never smoked tobacco [facility] Medications Ordered Medication Name Filled Medication Name Start Date Stop Date Current Medication? Ordering Clinician Indication Dosage Frequency Signature (SIG) Comments Components Source KCL (KLOR-CON M20) tablet 40 mEq 2022-06 0 15:45: 00 03-16 16:03 :00 No 40meq 40 mEq, Oral, ONCE, 1 dose, On 03/16/23 at 1045, CANDE [facility] ketorolac (TORADOL) tablet 10 mg 2022-06 015 15:30: 00 03-16 14:50 :00 No 10mg 10 mg, Oral, ONCE, 1 dose, On 03/16/23 at 1030, Routine [facility] NaCl 0.9% (NS) bolus infusion 1,000 mL 2022-06 0 15:30: 00 03-16 16:18 :00 No 1000mL at 999 mL/hr, 1,000 mL, IV Infusion, ONCE, 1 dose, On 03/16/23 at 1030, CANDE [facility] naproxen (NAPROSYN) 500 mg tablet 2022-06 00:00: 00 Yes [id number] 500mg Take 1 tablet by mouth in the morning and 1 tablet in the evening. Take with meals. [facility] methocarbam oL 750 mg tablet 2022-06 00:00: 00 Yes [id number] 750mg Take 1 tablet by mouth 4 (four) times daily. [facility] KCL 20 mEq tablet 2022-06 00:00: 00 03-22 04:59 :00 No [id number] 20meq Take 1 tablet by mouth in the morning and 1 tablet in the evening. Do all this for 5 days. [facility] NaCl 0.9% (NS) bolus infusion 1,000 mL 02-22 23:15: 02-23 00:00 :00 No 1000mL at 999 mL/hr, 1,000 mL, IV Infusion, ONCE, 1 dose, On 02/22/23 at 1815, STAT [facility] ketorolac (TORADOL) injection 30 mg 02-22 22:45: 00 02-22 22:24 :00 No 30mg 30 mg, Slow IV Push, ONCE, 1 dose, On 02/22/23 at 1745, CANDE [facility] iopamidol (ISOVUE 370-500 mL) injection 80 mL 02-22 21:15: 00 02-22 21:25 :00 No 80mL 80 mL, Intravenou s, ONCE, 1 dose, On 02/22/23 at 1615, Routine [facility] ondansetron (ZOFRAN (PF)) injection 4 mg 02-22 20:15: 00 02-22 19:37 :00 No 4mg 4 mg, Slow IV Push, ONCE, 1 dose, On 02/22/23 at 1515, CANDE [facility] NaCl 0.9% (NS) bolus infusion 1,000 mL 02-22 20:00: 00 02-22 22:00 :00 No 1000mL at 999 mL/hr, 1,000 mL, IV Infusion, ONCE, 1 dose, On [facility] 02/22/23 at 1500, [facility] famotidine (PEPCID) 40 mg tablet 02-22 00:00: 00 Yes [id number] 40mg Take 1 tablet by mouth in the morning. [facility] ondansetron 4 mg disintegrat ing tablet 02-22 00:00: 00 Yes [id number] 4mg Take 1 tablet by mouth every 4 (four) hours as needed for Nausea and Vomiting (N/V). [facility] KCL (KLOR-CON M20) tablet 40 mEq 02-21 03:00: 00 02-21 02:57 :00 No 40meq 40 mEq, Oral, ONCE, 1 dose, On [place] 02/20/23 at 2200, [facility] ondansetron (ZOFRAN-ODT ) disintegrat ing tablet 4 mg 02-21 01:00: 00 02-21 00:52 :00 No 4mg 4 mg, Oral, ONCE, 1 dose, On [facility] 02/20/23 at 2000, Routine [facility] naproxen (NAPROSYN) tablet 500 mg 07-15 02:30: 00 07-15 01:28 :00 No 500mg 500 mg, Oral, ONCE, 1 dose, On [facility] 07/14/21 at 2030, Routine [facility] naproxen (NAPROSYN) 500 mg tablet 07-14 00:00: 00 03-16 00:00 :00 No [id number] 500mg Take 1 tablet by mouth 2 (two) times daily with meals. [facility] albuterol 90 mcg/actuati on inhaler 11-29 00:00: 00 Yes [id number] 2{puff} Inhale 2 Puffs every 4 (four) hours as needed for Wheezing or Shortness of Breath. [facility] benzonatate 100 mg capsule 11-29 00:00: 00 Yes [id number] 100mg Take 1 capsule by mouth 3 (three) times daily as needed for Cough. [facility] levothyroxi ne 75 mcg tablet 12-09 01:05: 20 Yes 75ug Take 75 mcg by mouth every morning. [facility] levothyroxi ne 75 mcg tablet 12-08 20:05: 20 Yes 75ug Take 75 mcg by mouth every morning. [facility] dicyclomine (BENTYL) 20 mg tablet 07-06 00:00: 00 Yes [id number] 20mg Take 1 tablet by mouth 4 (four) times daily as needed for Abdominal pain. [facility] Vital Signs Vital Name Observation Time Observation Value Comments S ourkwesi Systolic blood pressure 2023-03-16 16:00:00 166 mm[Hg] [facility] Diastolic blood pressure 2023-03-16 16:00:00 96 mm[Hg] [facility] Heart rate 2023-03-16 16:00:00 66 /min [facility] Respiratory rate 2023-03-16 16:00:00 20 /min [facility] Oxygen saturation in Arterial blood by Pulse oximetry 2023-03-16 16:00:00 96 /min [facility] Body temperature 2023-03-16 15:56:00 35.56 Jane [facility] Body height 2023-03-16 14:14:00 167.6 cm [facility] Body weight 2023-03-16 14:14:00 78.926 kg [facility] BMI 2023-03-16 14:14:00 28.08 kg/m2 [facility] Systolic blood pressure 2023-02-22 23:24:00 137 mm[Hg] [facility] Diastolic blood pressure 2023-02-22 23:24:00 91 mm[Hg] [facility] Heart rate 2023-02-22 23:24:00 65 /min [facility] Respiratory rate 2023-02-22 23:24:00 20 /min [facility] Oxygen saturation in Arterial blood by Pulse oximetry 2023-02-22 23:24:00 99 /min [facility] Body temperature 2023-02-22 22:24:00 36.17 Jane [facility] Body weight 2023-02-22 18:55:00 80.74 kg [facility] BMI 2023-02-22 18:55:00 28.73 kg/m2 [facility] Systolic blood pressure 2023-02-21 02:15:29 141 mm[Hg] [facility] Diastolic blood pressure 2023-02-21 02:15:29 107 mm[Hg] [facility] Heart rate 2023-02-21 02:15:29 79 /min [facility] Respiratory rate 2023-02-21 02:15:29 19 /min [facility] Oxygen saturation in Arterial blood by Pulse oximetry 2023-02-21 02:15:29 97 /min [facility] Body temperature 2023-02-21 00:56:51 36.5 Jane [facility] Body height 2023-02-20 23:07:00 167.6 cm [facility] Body weight 2023-02-20 23:07:00 80.74 kg [facility] BMI 2023-02-20 23:07:00 28.73 kg/m2 [facility] Systolic blood pressure 2021-07-15 00:41:00 143 mm[Hg] [facility] Diastolic blood pressure 2021-07-15 00:41:00 97 mm[Hg] [facility] Heart rate 2021-07-15 00:41:00 95 /min [facility] Body temperature 2021-07-15 00:41:00 36.56 Jane [facility] Respiratory rate 2021-07-15 00:41:00 18 /min [facility] Body weight 2021-07-15 00:41:00 77.111 kg [facility] BMI 2021-07-15 00:41:00 27.44 kg/m2 [facility] Oxygen saturation in Arterial blood by Pulse oximetry 2021-07-15 00:41:00 100 /min [facility] Systolic blood pressure 2019-12-01 04:30:00 120 mm[Hg] [facility] Diastolic blood pressure 2019-12-01 04:30:00 84 mm[Hg] [facility] Heart rate 2019-12-01 04:30:00 70 /[facility] Res[facility] 2019-12-01 04:30:00 15 /min [facility] Oxygen saturation in Arterial blood by Pulse oximetry 2019-12-01 04:30:00 100 /min [facility] Body temperature 2019-12-01 02:52:00 37.11 Jane [facility] Body weight 2019-12-01 02:52:00 77.111 kg [facility] BMI 2019-12-01 02:52:00 27.44 kg/m2 [facility] Procedures Procedure Date / Time Performed Performing Clinician Source COMP. METABOLIC PANEL (20955) 2023-03-16 14:38:00 Eloy Washburn [facility] CBC WITH DIFF 2023-03-16 14:38:00 Eloy Washburn [facility] URINALYSIS 2023-03-16 14:38:00 Eloy Washburn [facility] URINE DRUG (IMMUNOASSAY) - COMPREHENSIVE DRUG SCREEN W/O REFLEX 2023-03-16 14:38:00 Eloy Washburn [facility] HB ECG ROUTINE & RHYTHM STRIP 2023-03-16 14:11:28 [facility] CONSENT/REFUSAL FOR DIAGNOSIS AND TREATMENT 2023-03-16 14:05:43 Doctor Unassigned, [place] [facility] CT ABDOMEN PELVIS W CONTRAST 2023-02-22 21:24:57 Esther Lennon [facility] LACTIC ACID WHOLE BLOOD 2023-02-22 19:39:00 Do justice Lennon [facility] CREATINE KINASE 2023-02-22 19:38:00 [facility] 2023-02-22 19:38:00 Esther Lennon [facility] MAGNESIUM 2023-02-22 19:38:00 Esther Lennon [facility] COMP. METABOLIC PANEL ([id number]) 2023-02-22 19:38:00 Esther Lennon [facility] CBC WITH DIFF 2023-02-22 19:38:00 Esther Lennon [facility] URINALYSIS 2023-02-22 19:38:00 [facility] URINE DRUG (IMMUNOASSAY) - COMPREHENSIVE DRUG SCREEN W/O REFLEX 2023-02-22 19:38:00 Esther Lennon [facility] CONSENT/REFUSAL FOR DIAGNOSIS AND TREATMENT 2023-02-22 18:49:26 Doctor Unassigned, [place] [facility] LIPASE 2023-02-21 02:04:00 Eri Cardona [facility] COMP. METABOLIC PANEL (16353) 2023-02-21 02:04:00 Eri Cardona [facility] CBC WITH DIFF 2023-02-21 02:04:00 Eri Cardona [facility] POCT GLUCOSE (AUTOMATED) 2023-02-21 01:50:00 Denilson Cardona [facility] URINALYSIS 2023-02-21 00:52:00 Eri Cardona [facility] ASSIGNMENT OF BENEFITS 2023-02-21 00:10:31 Docto r Unassigned, [place] [facility] RAPID INFLUENZA A/B 2023-02-21 00:05:00 Eri Cardona [facility] COVID-19 (ID NOW RAPID TESTING) 2023-02-21 00:05:00 Eri Cardona [facility] CONSENT/REFUSAL FOR DIAGNOSIS AND TREATMENT 2023-02-20 22:56:07 Doctor Unassigned, [place] [facility] NOTICE OF PRIVACY PRACTICES 2021-07-15 00:35:54 Doctor Unassigned, [place] [facility] CONSENT/REFUSAL FOR DIAGNOSIS AND TREATMENT 2021-07-15 00:35:24 Doctor Unassigned, [place] [facility] XR CHEST 1 VW 2019-12-01 03:35:08 Kamaljit Morris [facility] TROPONIN I 2019-12-01 03:08:00 Kamaljit Morris [facility] EKG-12 LEAD 2019-12-01 02:57:43 Kamaljit Morris [facility] ASSIGNMENT OF BENEFITS 2019-12-01 02:30:55 Docto r Unassigned, [place] [facility] CONSENT/REFUSAL FOR DIAGNOSIS AND TREATMENT 2019-12-01 02:30:26 Doctor Unassigned, [place] [facility] AUTHORIZATION FOR RELEASE OF PHI 2019-01-22 05:01:00 Doctor Unassigned, [place] [facility] Encounters Start Date/Time End Date/Time Encounter Type Admission Type Attending [facility] Care Department Encounter ID Source 2023-03-26 14:50:11 2023-03-26 14:50:11 Outpatient [facility] [id number] 1025 Kartik Esteves 2023-03-16 09:08:00 2023-03-16 11:21:00 Emergency ELOY FLEMING TIMOTHY [facility] ERT [id number] [facility] 2023-03-16 09:08:00 2023-03-16 11:21:00 Emergency Washburn, Eloy [facility] 1.2.840.114 350.1.13.10 4.2.7.2.686 [id number] [facility] 2023-02-22 13:57:00 2023-02-22 19:30:00 Emergency X LENNON ESTHER [facility] ERT [id number] [facility] 2023-02-22 13:57:00 2023-02-22 19:30:00 Emergency LennonEsther [facility] 1.2.840.114 350.1.13.10 4.2.7.2.686 [id number] [facility] 2023-02-20 18:08:00 2023-02-20 22:50:00 Emergency Eri Cardona [facility] 1.2.840.114 350.1.13.10 4.2.7.2.686 [id number] [facility] 2023-02-20 18:08:00 2023-02-20 22:50:00 Emergency X ERI CARDONA [facility] ERT [id number] [facility] 2021-07-14 18:42:00 2021-07-14 19:43:00 Emergency X Gabriela VILLAFANA [facility] ERT [id number] [facility] 2021-07-14 18:42:00 2021-07-14 19:43:00 Emergency Gabriela Villafana [facility] 1.2.840.114 350.1.13.10 4.2.7.2.686 [id number] [facility] 2021-07-14 00:00:00 2021-07-14 00:00:00 Orders Only Doctor Unassigned, [place] [facility] 1.2.840.114 350.1.13.10 4.2.7.2.686 [id number] [facility] 2019-12-06 00:00:00 2019-12-06 00:00:00 Letter (Out) Alba Chen [facility] 1.2.840.114 350.1.13.10 4.2.7.2.686 [id number] [facility] 2019-12-05 00:00:00 2019-12-05 00:00:00 Telephone Leonela Benson [facility] 1.2.840.114 350.1.13.10 4.2.7.2.686 [id number] [facility] 2019-11-30 21:33:45 2019-11-30 23:43:00 Emergency Kamaljit Morris [facility] 1.2.840.114 350.1.13.10 4.2.7.2.686 [id number] [facility] 2019-11-30 21:33:45 2019-11-30 21:33:45 Emergency X KAMALJIT MORRIS [facility] ERT [id number] [facility] 2019-11-30 00:00:00 2019-11-30 00:00:00 Orders Only Doctor Unassigned, [place] [facility] 1.2.840.114 350.1.13.10 4.2.7.2.686 [id number] [facility] 2019-01-22 00:00:00 2019-01-22 00:00:00 Orders Only Doctor Unassigned, [place] [facility] 1.2.840.114 350.1.13.10 4.2.7.2.686 [id number] [facility] Results Test Description Test Time Test Comments Results Result Co mments Source [facility] WITH [id number] 15:04:12* Test Item Value Reference Range Interpretation Comme nts WBC (test code = 6690-2) 5.05 See_Comment [Automated messa ge] The system which generated this result transmitted reference range: 4.30 - 11.10 10*3/?L. The reference range was not used to interpret this result as normal/abnormal. RBC (test code = 789-8) 4.56 See_Comment [Automated Pixelpipea ge] The system which generated this result [...] 34.5 g/dL 31.6-35.1 RDW-SD (test code = 29507-2) 41.0 fL 39.0-49.9 RDW-CV (test code = 788-0) 12.9 % 12.0-15.5 PLT (test code = 777-3) 211 See_Comment [Automated messa ge] The system which generated this result transmitted reference range: 166 - 358 10*3/?L. The reference range was not used to interpret this result as normal/abnormal. MPV (test code = 77012-7) 9.6 fL 9.5-12.9 NRBC/100 WBC (test code = 9051119710) 0.0 See_Comment [Automated me ssage] The system which generated this result transmitted reference range: 0.0 - 10.0 /100 WBCs. The reference range was not used to interpret this result as normal/abnormal. NRBC x10^3 (test code = 7783762103) See_Comment [Automated me ssage] The system which generated this result transmitted reference range: 10*3/?L. The reference range was not used to interpret this result as normal/abnormal. GRAN MAT (NEUT) % (test code = 770-8) 56.4 % IMM GRAN % (test code = 0973469383) 0.40 % LYMPH % (test code = 736-9) 28.1 % MONO % (test code = 5905-5) 11.7 % EOS % (test code = 713-8) 2.6 % BASO % (test code = 706-2) 0.8 % GRAN MAT x10^3(ANC) (test code = 9202394033) 2.85 10*3/uL 1.88-7.09 IMM GRAN x10^3 (test code = 1919650948) 0.00-0.06 LYMPH x10^3 (test code = 731-0) 1.42 10*3/uL 1.32-3.29 MONO x10^3 (test code = 742-7) 0.59 10*3/uL 0.33-0.92 EOS x10^3 (test code = 711-2) 0.13 10*3/uL 0.03-0.39 BASO x10^3 (test code = 704-7) 0.04 10*3/uL 0.01-0.07 [facility] Whole [id number] 19:45:55* Test Item Value Reference Range Interpretation Comme nts LACTIC ACID (test code = 3106091294) 1.58 mmol/L 0.50-2.20 Lab Interpretation (test cod e = 02924-1) [facility] (89914)2023-02-21 02:58:07* Test Item Value Reference Range Interpretation Comme nts NA (test code = 3731572303) 136 mmol/L 135-145 K (test code = 7684253967) 2.9 mmol/L 3.5-5.0 LL CL (test code = 7321471337) 99 mmol/L 98-108 CO2 TOTAL (test code = 3026871214) 21 mmol/L 23-31 L AGAP (test code = 0050880045) 16 2-16 BUN (test code = 2707951192) 22 mg/dL 7-23 GLUCOSE (test code = 9127095709) 101 mg/dL 70-110 CREATININE (test code = 5496133360) 0.99 mg/dL 0.50-1.04 TOTAL BILI (test code = 4416690497) 1.3 mg/dL 0.1-1.1 H CALCIUM (test code = 6053023254) 9.9 mg/dL 8.6-10.6 T PROTEIN (test code = 6854619201) 9.2 g/dL 6.3-8.2 H ALBUMIN (test code = 2740952644) 4.7 g/dL 3.5-5.0 ALK PHOS (test code = 1544114047) 85 U/L 34-122 ALTv (test code = 1742-6) 118 U/L 5-35 H AST(SGOT) (test code = 2885283421) 104 U/L 13-40 H eGFR (test code = 4587903187) 58.5 mL/min/1.73m2 SAPPHIRE (test code = SAPPHIRE) [...] imaging tests). Lab Interpretation (test code = 88551-8) Abnormal [facility] WITH [id number] 02:50:32* Test Item Value Reference Range Interpretation Comme nts WBC (test code = 6690-2) 11.84 See_Comment H [Automated Pixelpipe[employer] VSporto] The system which generated this result transmitted reference range: 4.30 - 11.10 10*3/?L. The reference range was not used to interpret this result as normal/abnormal. RBC (test code = 789-8) 5.51 See_Comment H [Automated [employer] VSporto] The system which generated this result transmitted [...] g/dL 31.6-35.1 H RDW-SD (test code = 81711-2) 39.8 fL 39.0-49.9 RDW-CV (test code = 788-0) 13.2 % 12.0-15.5 PLT (test code = 777-3) 379 See_Comment H [Automated messa ge] The system which generated this result transmitted reference range: 166 - 358 10*3/?L. The reference range was not used to interpret this result as normal/abnormal. MPV (test code = 40518-6) 9.8 fL 9.5-12.9 NRBC/100 WBC (test code = 1745695021) 0.0 See_Comment [Automated boac[employer] ssage] The system which generated this result transmitted reference range: 0.0 - 10.0 /100 WBCs. The reference range was not used to interpret this result as normal/abnormal. NRBC x10^3 (test code = 9820022364) See_Comment [Automated Pixelpipea ge] The system which generated this result transmitted reference range: 10*3/?L. The reference range was not used to interpret this result as normal/abnormal. GRAN MAT (NEUT) % (test code = 770-8) 57.8 % IMM GRAN % (test code = 9257372604) 1.20 % LYMPH % (test code = 736-9) 23.4 % MONO % (test code = 5905-5) 15.3 % EOS % (test code = 713-8) 1.5 % BASO % (test code = 706-2) 0.8 % GRAN MAT x10^3(ANC) (test code = 1687867424) 6.84 10*3/uL 1.88-7.09 IMM GRAN x10^3 (test code = 2597702147) 0.14 10*3/uL 0.00-0.06 H LYMPH x10^3 (test code = 731-0) 2.77 10*3/uL 1.32-3.29 MONO x10^3 (test code = 742-7) 1.81 10*3/uL 0.33-0.92 H EOS x10^3 (test code = 711-2) 0.18 10*3/uL 0.03-0.39 BASO x10^3 (test code = 704-7) 0.10 10*3/uL 0.01-0.07 H Lab Interpretation (test code = 87621-2) [facility]normal [facility] 02:48:29* Test Item Value Reference Range Interpretation Comme nts LIPASE (test code = 0764634268) 201 U/L 0-220 Lab Interpretation (test cod e = 44959-4) Normal [facility] ([facility]ATED)2023-02-21 01:52:26* Test Item Value Reference Range Interpretation Comme nts POCT GLU (test code = 4505966335) 99 mg/dL 70-110 Lab Interpretation (test cod e = 08189-7) Normal [facility] 1 [id number] 04:33:08No acute intrathoracic abnormality. Preliminary Report Dictated [...] reviewed this study and agree with the abovereport.[facility] 2019-12-01 03:43:00* Test Item Value Reference Range Interpretation Comme nts TROPONIN I (test code = 8894575276) <0.012 See_Comment [Automated message] The system which [...] biotin. ? Lab Interpretation (test code = 33605-5) Normal [facility]"
[2024-06-13] MEDS ORDERED: KETOROLAC 30 MG/ML INJ ONE (18:09)
[2024-06-13] MEDS ORDERED: ONDANSETRON 4 MG/2 ML VIAL ONE (18:09)
[2024-06-13] MEDS ORDERED: NA CHLORIDE 0.9% 1,000 ML ONE (18:09)
[2024-06-13 18:30] LABS: Absolute Lymphocytes (CBC) 0.4 K/uL (0.7-4.9); Absolute Monocytes 0.5 K/uL (0.1-1.3); Basophils % 0.8 % (0-1.3); Eosinophils % 0.3 % (0-4.4); Hematocrit 43.2 % (36.0-45.0); Hemoglobin 14.8 g/dL (12.0-15.0); Lymphocytes % 12.4 % (15.3-44.8); MCH 29.9 pg (27.0-35.0); MCHC 34.2 g/dL (32.0-36.0); MCV 87.3 fL (80-100); MPV 7.8 fL (7.6-11.3); Monocytes % 17.9 % (3.3-12.3); Neutrophils % 68.6 % (41.7-73.7); Nucleated Red Blood Cells % 0.3 % (0-0); Platelets 153 thou/uL (152-406); RBC Red Blood Cell Count 4.95 M/uL (3.86-4.86); Red Cell Distribution Width 13.6 % (12.1-15.2)
[2024-06-13 18:40] LABS: Specific Gravity 1.018 (1.005-1.030); Sqamous Epithelial <5 /HPF (None Seen); Urine Bacteria <20 /HPF (<20); Urine Bilirubin NEGATIVE (Negative); Urine Blood 2+ (Negative); Urine Clarity Turbid (Clear); Urine Color Light-Yellow (Yellow); Urine Culture Reflex Order NOT NEEDED; Urine Glucose NEGATIVE (Negative); Urine Ketones 1+ (Negative); Urine Microscopic Reflex YN ORDER UMIC; Urine Mucus Slight /HPF (None Seen); Urine Nitrite NEGATIVE (Negative); Urine Protein 1+ (Negative); Urine Urobilinogen Normal (Normal); Urine WBC <5 /HPF (<5)
[2024-06-13 18:50] LABS: Albumin 3.7 g/dL (3.4-5.0); Albumin/Globulin Ratio 0.8 (1.1-1.8); Anion Gap 9.3 mEq/L (5.0-15.0); Bilirubin Total 1.5 mg/dL (0.2-1.0); Globulin 4.6 g/dL (2.3-3.5); Potassium 3.3 mEq/L (3.5-5.1); Protein, Total 8.3 g/dL (6.4-8.2)
--- NOTE | 2024-06-13 20:09 | RAD REPORT ---
EXAMINATION: CT Abdomen Pelvis W Contrast CLINICAL INDICATION: Female, 54 years old. ABD PAIN TECHNIQUE: CT abdomen and pelvis was performed, after the administration of IV contrast, as per [facility] protocol. Axial, sagittal and coronal reconstructions were obtained. One or more of the following dose reduction techniques were used: Automated exposure control, adjustment of the mA and k V according to patient size, and iterative reconstruction. Unless otherwise specified, incidental findings do not require dedicated imaging follow-up. COMPARISON: No prior exam. FINDINGS: LOWER CHEST: The visualized lung bases are clear. LIVER: Normal in size and contour. Small fluid density cysts within the liver, largest in the posteri or left lobe measuring 1.7 cm. Some hypoattenuating lesions within the right lobe, are less conspicuous compared to the prior CT chest including a posterior right lobe 1.2 cm lesion, which may reflect a partially enhancing hemangioma. No suspicious focal lesion. BILIARY SYSTEM: No suspicious abnormalities. SPLEEN: Normal size. No focal lesion. PANCREAS: No mass, ductal dilation, or emily-pancreatic fluid. ADRENALS: Normal; no mass. KIDNEYS: 2 mm right superior pole calculus. Fullness of the right renal pelvis and calyces, and mild prominence of the proximal right ureter with smooth tapering, with no evidence of an obstructing calculus. Normal size and contour. No left hydronephrosis. URINARY BLADDER: Unremarkable. GASTROINTESTINAL TRACT: No evidence of free air, significant intra-abdominal free fluid, bowel obstru ction or abscess. APPENDIX: Normal appendix. LYMPH NODES: No lymphadenopathy. MUSCULOSKELETAL: No acute or suspicious osseous abnormality. ADDITIONAL FINDINGS: None. IMPRESSION: Fullness of the right renal pelvis and proximal ureter, may be transient, related to recently passed calculus, or reflux disease. Right superior renal pole 2 mm nonobstructing renal calculus. Other incidental findings as above, including benign-appearing hepatic cysts and probable small heman gioma.
--- NOTE | 2024-06-13 20:24 | EDPHYS ---
Physician Documentation [facility] Name: Shivani Washington Age: 54 yrs Sex: Female : 1970 Arrival Date: 06/13/2024 Time: 17:28 Bed 15 Private MD: ED Physician Myke Joseph HPI: 06/13 17:39 This 54 yrs old Female presents to ER via Ambulatory with complaints of Abdominal Pain. kb 17:39 Pt is a 54 year old female who presents for abd pain, nausea, vomiting and diarrhea. kb States the diarrhea has been ongoing for about 2 months. The abd pain and vomiting started a few hours ago. Denies fever. . 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 - Infectious Disease History:: Denies. - Social history:: Smoking status: Patient denies any tobacco usage or history of. ROS: 17:39 Constitutional: As per HPI kb Exam: 17:39 Constitutional: This is a well developed, well nourished patient who is awake, alert, kb and in no acute distress. Head/Face: Normocephalic, atraumatic. ENT: Moist Mucous membranes Cardiovascular: Regular rate Respiratory: Respirations even and unlabored. No increased work of breathing. Talking in full sentences Skin: Warm, dry with normal turgor. Normal color. MS/ Extremity: Pulses equal, no cyanosis. Neurovascular intact. Full, normal range of motion. Neuro: Awake and alert, GCS 15, oriented to person, place, time, and situation. 17:39 Abdomen/GI: Inspection: abdomen appears normal, Palpation: moderate abdominal tenderness, in the left upper quadrant and right lower quadrant, Vital Signs: 17:38 BP 139 / 102; Pulse 105; Resp 18; Temp 98; Pulse Ox 97% ; Weight 77.11 kg; Height 5 ft. db 5 in. ; Pain 8/10; 19:30 BP 142 / 93; Pulse 74; Resp 17; Temp 98; Pulse Ox 100% on R/A; Pain 6/10; rg5 20:30 BP 124 / 78; Pulse 75; Resp 17; Temp 98; Pulse Ox 99% on R/A; Pain 0/10; rg5 17:38 Body Mass Index 28.29 (77.11 kg, 165.1 cm) db 17:38 Pain Scale: Adult db 19:30 Pain Scale: Adult rg5 20:30 Pain Scale: Adult rg5 MDM: 17:31 Medical Screening Exam initiated kb 20:21 Differential diagnosis: non-specific abd pain, pancreatitis, Pyelonephritis, kb Ureterolithiasis, urinary tract infection. Data reviewed: vital signs, nurses notes. Counseling: I had a detailed discussion with the patient and/or guardian regarding the historical points, exam findings, and any diagnostic results supporting the discharge/admit diagnosis, lab results, radiology results, the need for outpatient follow up, a family practitioner, to return to the emergency department if symptoms worsen or persist or if there are any questions or concerns that arise at home. ED course: Pain improved after treatment.. 06/13 17:39 Order name: CBC with Diff; Complete Time: 18:41 kb 06/13 17:39 Order name: CMP; Complete Time: 18:53 kb 06/13 17:39 Order name: Lipase; Complete Time: 18:53 kb 06/13 17:39 Order name: Urinalysis w/ reflexes; Complete Time: 18:41 kb 06/13 17:39 Order name: CT Abd/Pelvis - IV Contrast Only; Complete Time: 20:12 kb 06/13 17:39 Order name: IV Saline Lock; Complete Time: 18:15 kb 06/13 17:39 Order name: Labs collected and sent; Complete Time: 18:15 kb Administered Medications: 18:24 Drug: TORadol - Ketorolac IVP 15 mg IVP once Route: IVP; Site: left antecubital; db 19:54 Follow up: Response: No adverse reaction rg5 18:24 Drug: Ondansetron IVP 4 mg IVP once; over 2 minutes Route: IVP; Site: left antecubital; db 19:54 Follow up: Response: No adverse reaction rg5 18:24 Drug: NS 0.9% IV 1000 ml IV at 1 bolus Per protocol; to be given as a bolus over 60 db minutes Route: IV; Rate: 1 bolus; Site: left antecubital; 19:54 Follow up: IV Status: Completed infusion; IV Intake: 1000ml rg5 Disposition: 06/14 09:09 Co-signature as Attending Physician, Myke Joseph MD I reviewed the patient's care rn provided by the Advanced Practice Provider and agree with the diagnosis and treatment plan. Disposition Summary: 06/13/24 20:23 Discharge Ordered Notes: Location: Home kb Condition: Stable kb Diagnosis - Calculus of kidney kb - Abdominal pain, Generalized kb Followup: kb - With: Emergency Department - When: As needed - Reason: Worsening of condition Followup: kb - With: Private Physician - When: 2 - 3 days - Reason: Recheck today's complaints, Continuance of care, Re-evaluation by your physician Discharge Instructions: - Discharge Summary Sheet kb - Kidney Stones, [id number] kb - Abdominal Pain, Adult, [id number] kb Forms: - Medication Reconciliation Form kb - Antibiotic Education kb - Prescription Opioid Use kb - Patient Portal Instructions kb - Leadership Thank You Letter kb Prescriptions: - Zofran 4 mg Oral tablet - take 1 tablet ORAL route every 6 hours As needed; 12 tablet; Refills: 0, kb Product Selection Permitted - Diclofenac Sodium 75 mg Oral tablet, delayed release (enteric coated) - take 1 tablet ORAL route 2 times per day As needed; 30 tablet; Refills: 0, kb Product Selection Permitted Signatures: Dispatcher [employer] Estelle Bright, AUTOMATION QA LEAD-C AUTOMATION QA LEAD-Myke Fay MD MD rn Benton, Danielle, RN RN db Gallardo, Rommel RN rg5
--- NOTE | 2024-06-13 20:24 | ER ---
Nurse's Notes [facility] Name: Shivani Washington Age: 54 yrs Sex: Female : 1970 Arrival Date: 06/13/2024 Time: 17:28 Bed 15 Private MD: Diagnosis: Calculus of kidney;Abdominal pain, Generalized Presentation: 06/13 17:37 Chief complaint: Patient states: LOWER ABD PAIN X 3 HOURS STATES FEELS LIKE 2 KNOTS db LOWER ABD. 17:38 Coronavirus screen: Client denies travel out of the [place] in the last 14 days. At this db time, the client does not indicate any symptoms associated with coronavirus-19. Ebola Screen: Patient negative for fever greater than or equal to 101.5 degrees Fahrenheit, and additional compatible Ebola Virus Disease symptoms Patient denies exposure to infectious person. Patient denies travel to an Ebola-affected area in the 21 days before illness onset. No symptoms or risks identified at this time. Initial Sepsis Screen: Does the patient meet any 2 criteria? No. Patient's initial sepsis screen is negative. Does the patient have a suspected source of infection? No. Patient's initial sepsis screen is negative. Risk Assessment: Do you want to hurt yourself or someone else? Patient reports no desire to harm self or others. Onset of symptoms was June 13, 2024. 17:38 Method Of Arrival: Ambulatory db 17:38 Acuity: CHAITANYA 3 db Triage Assessment: 17:37 General: Appears in no apparent distress. comfortable, Behavior is calm, cooperative. db Pain: Complains of pain in abdomen. Neuro: Level of Consciousness is awake, alert, obeys commands, Oriented to person, place, time, situation. GI: Abdomen is flat, non-distended, Abd is soft Abdomen is tender to palpation. 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 - Infectious Disease History:: Denies. - Social history:: Smoking status: Patient denies any tobacco usage or history of. Screenin:30 [facility] ED Fall Risk Assessment (Adult) History of falling in the last 3 months, rg5 including since admission Yes- single mechanical fall (1 pt) Confusion or Disorientation No (0 pts) Intoxicated or Sedated No (0 pts) Impaired Gait Yes (1 pt) Mobility Assist Device Used No (0 pt) Altered Elimination Yes (1 pt) Score/Fall Risk Level 3 or more points = High Risk Oriented to surroundings, Maintained a safe environment, Hourly rounding (assess needs \T\ fall precautionary measures) done. Abuse screen: Denies threats or abuse. Nutritional screening: No deficits noted. Tuberculosis screening: No symptoms or risk factors identified. Assessment: 19:30 GI: Bowel sounds present in left lower quadrant. rg5 19:30 General: Appears in no apparent distress. Behavior is calm, cooperative. Pain: rg5 Complains of pain in abdomen. Neuro: Level of Consciousness is awake, alert, Oriented to place. Cardiovascular: Patient's skin is warm and dry. Rhythm is regular. Respiratory: Airway is patent Trachea deviated to right Respiratory effort is even, unlabored, Respiratory pattern is regular, symmetrical. GI: Abdomen is round non-distended, Abd is soft and non tender. : No signs and/or symptoms were reported regarding the genitourinary system. EENT: No deficits noted. Derm: Skin is fragile, Skin is dry, Skin is normal, Skin temperature is warm. Musculoskeletal: Circulation, motion, and sensation intact. Range of motion: intact in all extremities. Vital Signs: 17:38 BP 139 / 102; Pulse 105; Resp 18; Temp 98; Pulse Ox 97% ; Weight 77.11 kg; Height 5 ft. db 5 in. ; Pain 8/10; 19:30 BP 142 / 93; Pulse 74; Resp 17; Temp 98; Pulse Ox 100% on R/A; Pain 6/10; rg5 20:30 BP 124 / 78; Pulse 75; Resp 17; Temp 98; Pulse Ox 99% on R/A; Pain 0/10; rg5 17:38 Body Mass Index 28.29 (77.11 kg, 165.1 cm) db 17:38 Pain Scale: Adult db 19:30 Pain Scale: Adult rg5 20:30 Pain Scale: Adult rg5 ED Course: 17:30 Patient arrived in ED. mr 17:31 [facility] kb 17:31 Myke Joseph MD is Attending Physician. kb 17:39 Triage completed. db 17:41 Arm band placed on Patient placed in an exam room. db 18:15 CBC with Diff Sent. cc6 18:15 CMP Sent. cc6 18:15 Lipase Sent. cc6 18:15 Urinalysis w/ reflexes Sent. cc6 18:15 Initial lab(s) drawn, by me, sent to lab. Urine collected: clean catch specimen. cc6 Inserted saline lock: 20 gauge in right antecubital area, using aseptic technique. Blood collected. Flushed with 10 mL NS. 19:17 CT Abd/Pelvis - IV Contrast Only In Process Unspecified. EDMS 19:18 John Sanchez, RN is Primary Nurse. rg5 19:30 Patient has correct armband on for positive identification. Bed in low position. Call rg5 light in reach. Side rails up X 1. Door closed. Noise minimized. Warm blanket given. Verbal reassurance given. 19:30 No provider procedures requiring assistance completed. rg5 20:41 Provided Education on: er post care done. rg5 20:42 IV discontinued, bleeding controlled, No redness/swelling at site. Pressure dressing rg5 applied. Administered Medications: 18:24 Drug: TORadol - Ketorolac IVP 15 mg IVP once Route: IVP; Site: left antecubital; db 19:54 Follow up: Response: No adverse reaction rg5 18:24 Drug: Ondansetron IVP 4 mg IVP once; over 2 minutes Route: IVP; Site: left antecubital; db 19:54 Follow up: Response: No adverse reaction rg5 18:24 Drug: NS 0.9% IV 1000 ml IV at 1 bolus Per protocol; to be given as a bolus over 60 db minutes Route: IV; Rate: 1 bolus; Site: left antecubital; 19:54 Follow up: IV Status: Completed infusion; IV Intake: 1000ml rg5 Medication: 19:30 VIS not applicable for this client. rg5 Intake: 19:54 IV: 1000ml; Total: 1000ml. rg5 Outcome: 20:23 Discharge ordered by . kb 20:42 Discharged to home ambulatory, rg5 20:42 Condition: stable 20:42 Discharge instructions given to patient, Instructed on discharge instructions, Demonstrated understanding of instructions, follow-up care, medications, Prescriptions given X 2, 20:44 Patient left the ED. rg5 Signatures: Dispatcher [employer] EDMS Estelle Seth, RUTHIE-C ELECTRICIAN LOCOMOTIVE-Parvin Rocha, Reg Reg mr Pepper Zuniga, RN RN db John Sanchez RN RN rg5 Elsa Lou cc6 Corrections: (The following items were deleted from the chart) 17:41 17:38 Temp 98F; 77.11 kg; Height 5 ft. 5 in.; BMI: 28.2; Pain 8/10, Adult; db quintin
[2024-06-15 16:16] VITALS: BP 124/78; TEMP 98; O2SAT 99
== END 2024-06-13 20:44 | disposition home or self-care (01) ==
LOC: ER 17:28
DX: R10.84 Generalized abdominal pain (principal); N20.0 Calculus of kidney
CPT/HCPCS: 96361; 85025; 81001; 36415; 83690; 80053; 74177; 96375; 96374; 99284; Q9967; J2405; J7030

== ENCOUNTER 2024-06-25 12:09 | Emergency (ER) | payer OTHER ==
--- OUTSIDE RECORDS SUMMARY | 2024-06-25 12:13 | XMS REPORT | Continuity of Care Document ---
Author Name Unknown Address [address] [place] [address] [facility] thconnect Address 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 Name Role Phone AURELIO HENDRICKSON Primary Care Physician Unavailab ELOY León Attending Clinician Unavailable ELOY WASHBURN Attending Clinician Unavailable ESTHER LENNON Attending Clinician Unavailable Esther Lennon MD Attending Clinician [phone] Eri Peters Attending Clinician [phone] ERI CARDONA Attending Clinician Unavailable Gabriela VILLAFANA Attending Clinician Unavailable Gabriela Arce Attending Clinician [phone] Doctor Unassigned, [place] Attending Clinician Alba Reyes RN Attending Clinician Unavailab Leonela Torres RN Attending Clinician Unavail able Kamaljit Boothe Attending Clinician [phone] KAMALJIT MRORIS Attending Clinician Unavailable ELOY WASHBURN Admitting Clinician Unavailable ESTHER LENNON Admitting Clinician Unavailable Problems Condition Name Condition Details Condition Category Status Onset Date Resolution Date Last Treatment Date Treating Clinician Comments Source Abdominal pain Abdominal pain Disease Active 08-09 00:00: 00 [facility] Allergies, Adverse Reactions, Alerts Allergy Name Allergy Type Status Severity Reaction(s) Onset Date Inactive Date Treating Clinician Comments Source NO KNOWN ALLERGIE S Drug Class Active [facility] Social History Social Habit Start Date Stop Date Quantity Comments Source [facility] to SARS-[facility]-2 (event) Not sure [facility] Alcohol intake 2023-03-16 00:00:00 2023-03-16 00:00:00 Current non-drinker of alcohol (finding) [facility] History of Social function 2018-12-08 00:00:00 2018-12-08 00:00:00 [facility] Tobacco use and exposure 2018-08-09 00:00:00 2018-08-09 00:00:00 Smokeless tobacco non-user [facility] Sex Assigned At 1970 00:00:00 1970 00:00:00 [facility] Smoking Status Start Date Stop Date Source Never smoked tobacco [facility] Medications Ordered Medication Name Filled Medication Name Start Date Stop Date Current Medication? Ordering Clinician Indication Dosage Frequency Signature (SIG) Comments Components Source KCL (KLOR-CON M20) tablet 40 mEq 2022-06 0 15:45: 00 03-16 16:03 :00 No 40meq 40 mEq, Oral, ONCE, 1 dose, On 03/16/23 at 1045, CANDE [facility] ketorolac (TORADOL) tablet 10 mg 2022-06 015 15:30: 00 03-16 14:50 :00 No 10mg 10 mg, Oral, ONCE, 1 dose, On 03/16/23 at 1030, Routine [facility] NaCl 0.9% (NS) bolus infusion 1,000 mL 2022-06 0 15:30: 00 03-16 16:18 :00 No 1000mL at 999 mL/hr, 1,000 mL, IV Infusion, ONCE, 1 dose, On 03/16/23 at 1030, CANDE [facility] naproxen (NAPROSYN) 500 mg tablet 2022-06 00:00: 00 Yes [id number] 500mg Take 1 tablet by mouth in the morning and 1 tablet in the evening. Take with meals. [facility] methocarbam oL 750 mg tablet 2022-06 00:00: 00 Yes [id number] 750mg Take 1 tablet by mouth 4 (four) times daily. [facility] KCL 20 mEq tablet 2022-06 00:00: 00 03-22 04:59 :00 No [id number] 20meq Take 1 tablet by mouth in the morning and 1 tablet in the evening. Do all this for 5 days. [facility] NaCl 0.9% (NS) bolus infusion 1,000 mL 02-22 23:15: 02-23 00:00 :00 No 1000mL at 999 mL/hr, 1,000 mL, IV Infusion, ONCE, 1 dose, On 02/22/23 at 1815, STAT [facility] ketorolac (TORADOL) injection 30 mg 02-22 22:45: 00 02-22 22:24 :00 No 30mg 30 mg, Slow IV Push, ONCE, 1 dose, On 02/22/23 at 1745, CANDE [facility] iopamidol (ISOVUE 370-500 mL) injection 80 mL 02-22 21:15: 00 02-22 21:25 :00 No 80mL 80 mL, Intravenou s, ONCE, 1 dose, On 02/22/23 at 1615, Routine [facility] ondansetron (ZOFRAN (PF)) injection 4 mg 02-22 20:15: 00 02-22 19:37 :00 No 4mg 4 mg, Slow IV Push, ONCE, 1 dose, On 02/22/23 at 1515, CANDE [facility] NaCl 0.9% (NS) bolus infusion 1,000 mL 02-22 20:00: 00 02-22 22:00 :00 No 1000mL at 999 mL/hr, 1,000 mL, IV Infusion, ONCE, 1 dose, On [facility] 02/22/23 at 1500, [facility] famotidine (PEPCID) 40 mg tablet 02-22 00:00: 00 Yes [id number] 40mg Take 1 tablet by mouth in the morning. [facility] ondansetron 4 mg disintegrat ing tablet 02-22 00:00: 00 Yes [id number] 4mg Take 1 tablet by mouth every 4 (four) hours as needed for Nausea and Vomiting (N/V). [facility] KCL (KLOR-CON M20) tablet 40 mEq 02-21 03:00: 00 02-21 02:57 :00 No 40meq 40 mEq, Oral, ONCE, 1 dose, On [facility] 02/20/23 at 2200, [facility] ondansetron (ZOFRAN-ODT ) disintegrat ing tablet 4 mg 02-21 01:00: 00 02-21 00:52 :00 No 4mg 4 mg, Oral, ONCE, 1 dose, On [facility] 02/20/23 at 2000, Routine [facility] naproxen (NAPROSYN) tablet 500 mg 07-15 02:30: 00 07-15 01:28 :00 No 500mg 500 mg, Oral, ONCE, 1 dose, On [facility] 07/14/21 at 2030, Routine [facility] naproxen (NAPROSYN) 500 mg tablet 07-14 00:00: 00 03-16 00:00 :00 No [id number] 500mg Take 1 tablet by mouth 2 (two) times daily with meals. [facility] albuterol 90 mcg/actuati on inhaler 11-29 00:00: 00 Yes [id number] 2{puff} Inhale 2 Puffs every 4 (four) hours as needed for Wheezing or Shortness of Breath. [facility] benzonatate 100 mg capsule 11-29 00:00: 00 Yes [id number] 100mg Take 1 capsule by mouth 3 (three) times daily as needed for Cough. [facility] levothyroxi ne 75 mcg tablet 12-09 01:05: 20 Yes 75ug Take 75 mcg by mouth every morning. [facility] levothyroxi ne 75 mcg tablet 12-08 20:05: 20 Yes 75ug Take 75 mcg by mouth every morning. [facility] dicyclomine (BENTYL) 20 mg tablet 07-06 00:00: 00 Yes [id number] 20mg Take 1 tablet by mouth 4 (four) times daily as needed for Abdominal pain. [facility] Vital Signs Vital Name Observation Time Observation Value Comments S ourkwesi Systolic blood pressure 2023-03-16 16:00:00 166 mm[Hg] [facility] Diastolic blood pressure 2023-03-16 16:00:00 96 mm[Hg] [facility] Heart rate 2023-03-16 16:00:00 66 /min [facility] Respiratory rate 2023-03-16 16:00:00 20 /min [facility] Oxygen saturation in Arterial blood by Pulse oximetry 2023-03-16 16:00:00 96 /min [facility] Body temperature 2023-03-16 15:56:00 35.56 Jane [facility] Body height 2023-03-16 14:14:00 167.6 cm [facility] Body weight 2023-03-16 14:14:00 78.926 kg [facility] BMI 2023-03-16 14:14:00 28.08 kg/m2 [facility] Systolic blood pressure 2023-02-22 23:24:00 137 mm[Hg] [facility] Diastolic blood pressure 2023-02-22 23:24:00 91 mm[Hg] [facility] Heart rate 2023-02-22 23:24:00 65 /min [facility] Respiratory rate 2023-02-22 23:24:00 20 /min [facility] Oxygen saturation in Arterial blood by Pulse oximetry 2023-02-22 23:24:00 99 /min [facility] Body temperature 2023-02-22 22:24:00 36.17 Jane [facility] Body weight 2023-02-22 18:55:00 80.74 kg [facility] BMI 2023-02-22 18:55:00 28.73 kg/m2 [facility] Systolic blood pressure 2023-02-21 02:15:29 141 mm[Hg] [facility] Diastolic blood pressure 2023-02-21 02:15:29 107 mm[Hg] [facility] Heart rate 2023-02-21 02:15:29 79 /min [facility] Respiratory rate 2023-02-21 02:15:29 19 /min [facility] Oxygen saturation in Arterial blood by Pulse oximetry 2023-02-21 02:15:29 97 /min [facility] Body temperature 2023-02-21 00:56:51 36.5 Jane [facility] Body height 2023-02-20 23:07:00 167.6 cm [facility] Body weight 2023-02-20 23:07:00 80.74 kg [facility] BMI 2023-02-20 23:07:00 28.73 kg/m2 [facility] Systolic blood pressure 2021-07-15 00:41:00 143 mm[Hg] [facility] Diastolic blood pressure 2021-07-15 00:41:00 97 mm[Hg] [facility] Heart rate 2021-07-15 00:41:00 95 /min [facility] Body temperature 2021-07-15 00:41:00 36.56 Jane [facility] Respiratory rate 2021-07-15 00:41:00 18 /min [facility] Body weight 2021-07-15 00:41:00 77.111 kg [facility] BMI 2021-07-15 00:41:00 27.44 kg/m2 [facility] Oxygen saturation in Arterial blood by Pulse oximetry 2021-07-15 00:41:00 100 /min [facility] Systolic blood pressure 2019-12-01 04:30:00 120 mm[Hg] [facility] Diastolic blood pressure 2019-12-01 04:30:00 84 mm[Hg] [facility] Heart rate 2019-12-01 04:30:00 70 /min [facility] Res[facility] rate 2019-12-01 04:30:00 15 /min [facility] Oxygen saturation in Arterial blood by Pulse oximetry 2019-12-01 04:30:00 100 /min [facility] Body temperature 2019-12-01 02:52:00 37.11 Jane [facility] Body weight 2019-12-01 02:52:00 77.111 kg [facility] BMI 2019-12-01 02:52:00 27.44 kg/m2 [facility] Procedures Procedure Date / Time Performed Performing Clinician Source COMP. METABOLIC PANEL ([id number]) 2023-03-16 14:38:00 Eloy Washburn [facility] CBC WITH DIFF 2023-03-16 14:38:00 Eloy Washburn [facility] URINALYSIS 2023-03-16 14:38:00 Eloy Washburn [facility] URINE DRUG (IMMUNOASSAY) - COMPREHENSIVE DRUG SCREEN W/O REFLEX 2023-03-16 14:38:00 Eloy Washburn [facility] HB ECG ROUTINE & RHYTHM STRIP 2023-03-16 14:11:28 Maddison [facility] CONSENT/REFUSAL FOR DIAGNOSIS AND TREATMENT 2023-03-16 14:05:43 Doctor Unassigned, [place] [facility] CT ABDOMEN PELVIS W CONTRAST 2023-02-22 21:24:57 Esther Lennon [facility] LACTIC ACID WHOLE BLOOD 2023-02-22 19:39:00 Do justice Lennon [facility] CREATINE KINASE 2023-02-22 19:38:00 [facility] 2023-02-22 19:38:00 Esther Lennon [facility] MAGNESIUM 2023-02-22 19:38:00 Esther Lennon [facility] COMP. METABOLIC PANEL ([id number]) 2023-02-22 19:38:00 Esther Lennon [facility] CBC WITH DIFF 2023-02-22 19:38:00 Esther Lennon [facility] URINALYSIS 2023-02-22 19:38:00 [facility] URINE DRUG (IMMUNOASSAY) - COMPREHENSIVE DRUG SCREEN W/O REFLEX 2023-02-22 19:38:00 Esther Lennon [facility] CONSENT/REFUSAL FOR DIAGNOSIS AND TREATMENT 2023-02-22 18:49:26 Doctor Unassigned, [place] [facility] LIPASE 2023-02-21 02:04:00 Eri Cardona [facility] COMP. METABOLIC PANEL ([id number]) 2023-02-21 02:04:00 Eri Cardona [facility] CBC WITH DIFF 2023-02-21 02:04:00 Eri Cardona [facility] POCT GLUCOSE (AUTOMATED) 2023-02-21 01:50:00 Denilson Cardona [facility] URINALYSIS 2023-02-21 00:52:00 Eri Cardona [facility] ASSIGNMENT OF BENEFITS 2023-02-21 00:10:31 Docto r Unassigned, [place] [facility] RAPID INFLUENZA A/B 2023-02-21 00:05:00 Eri Cardona [facility] COVID-19 (ID NOW RAPID TESTING) 2023-02-21 00:05:00 Eri Cardona [facility] CONSENT/REFUSAL FOR DIAGNOSIS AND TREATMENT 2023-02-20 22:56:07 Doctor Unassigned, [place] [facility] NOTICE OF PRIVACY PRACTICES 2021-07-15 00:35:54 Doctor Unassigned, [place] [facility] CONSENT/REFUSAL FOR DIAGNOSIS AND TREATMENT 2021-07-15 00:35:24 Doctor Unassigned, [place] [facility] XR CHEST 1 VW 2019-12-01 03:35:08 Kamaljit Morris [facility] TROPONIN I 2019-12-01 03:08:00 Kamaljit Morris [facility] EKG-12 LEAD 2019-12-01 02:57:43 Kamaljit Morris [facility] ASSIGNMENT OF BENEFITS 2019-12-01 02:30:55 Docto r Unassigned, [place] [facility] CONSENT/REFUSAL FOR DIAGNOSIS AND TREATMENT 2019-12-01 02:30:26 Doctor Unassigned, [place] [facility] AUTHORIZATION FOR RELEASE OF PHI 2019-01-22 05:01:00 Doctor Unassigned, [place] [facility] Encounters Start Date/Time End Date/Time Encounter Type Admission Type Attending [facility] Care Department Encounter ID Source 2023-03-26 14:50:11 2023-03-26 14:50:11 Outpatient [facility] [id number] Kartik Esteves 2023-03-16 09:08:00 2023-03-16 11:21:00 Emergency [facility]LOY [facility] [id number] [facility] 2023-03-16 09:08:00 2023-03-16 11:21:00 Emergency Washburn, Eloy [facility] 1.2.840.114 350.1.13.10 4.2.7.2.686 [id number] [facility] 2023-02-22 13:57:00 2023-02-22 19:30:00 Emergency X LENNON [facility] [id number] [facility] 2023-02-22 13:57:00 2023-02-22 19:30:00 Emergency LennonEsther [facility] 1.2.840.114 350.1.13.10 4.2.7.2.686 [id number] [facility] 2023-02-20 18:08:00 2023-02-20 22:50:00 Emergency Eri Cardona [facility] 1.2.840.114 350.1.13.10 4.2.7.2.686 [id number] [facility] 2023-02-20 18:08:00 2023-02-20 22:50:00 Emergency X [facility]RI [facility]OD[facility] [id number] [facility] 2021-07-14 18:42:00 2021-07-14 19:43:00 Emergency X Gabriela [facility]ILLAFANA [facility] [id number] [facility] 2021-07-14 18:42:00 2021-07-14 19:43:00 Emergency Gabriela Villafana [facility] 1.2.840.114 350.1.13.10 4.2.7.2.686 [id number] [facility] 2021-07-14 00:00:00 2021-07-14 00:00:00 Orders Only Doctor Unassigned, [place] [facility] 1.2.840.114 350.1.13.10 4.2.7.2.686 [id number] [facility] 2019-12-06 00:00:00 2019-12-06 00:00:00 Letter (Out) Alba Chen [facility] 1.2.840.114 350.1.13.10 4.2.7.2.686 [id number] [facility] 2019-12-05 00:00:00 2019-12-05 00:00:00 Telephone Leonela Benson [facility] 1.2.840.114 350.1.13.10 4.2.7.2.686 [id number] [facility] 2019-11-30 21:33:45 2019-11-30 23:43:00 Emergency Kamaljit [facility] 1.2.840.114 350.1.13.10 4.2.7.2.686 [id number] [facility] 2019-11-30 21:33:45 2019-11-30 21:33:45 Emergency X KAMALJIT [facility] [id number] [facility] 2019-11-30 00:00:00 2019-11-30 00:00:00 Orders Only Doctor Unassigned, [place] [facility] 1.2.840.114 350.1.13.10 4.2.7.2.686 [id number] [facility] 2019-01-22 00:00:00 2019-01-22 00:00:00 Orders Only Doctor Unassigned, [place] [facility] 1.2.840.114 350.1.13.10 4.2.7.2.686 [id number] [facility] Results Test Description Test Time Test Comments Results Result Co mments Source [facility] WITH [id number] 15:04:12* Test Item Value Reference Range Interpretation Comme nts WBC (test code = 6690-2) 5.05 See_Comment [Automated messa ge] The system which generated this result transmitted reference range: 4.30 - 11.10 10*3/?L. The reference range was not used to interpret this result as normal/abnormal. RBC (test code = 789-8) 4.56 See_Comment [Automated [employer] ge] The system which generated this result [...] 34.5 g/dL 31.6-35.1 RDW-SD (test code = 30810-8) 41.0 fL 39.0-49.9 RDW-CV (test code = 788-0) 12.9 % 12.0-15.5 PLT (test code = 777-3) 211 See_Comment [Automated messa ge] The system which generated this result transmitted reference range: 166 - 358 10*3/?L. The reference range was not used to interpret this result as normal/abnormal. MPV (test code = 91411-0) 9.6 fL 9.5-12.9 NRBC/100 WBC (test code = 8588360410) 0.0 See_Comment [Automated me ssage] The system which generated this result transmitted reference range: 0.0 - 10.0 /100 WBCs. The reference range was not used to interpret this result as normal/abnormal. NRBC x10^3 (test code = 9962397401) See_Comment [Automated me ssage] The system which generated this result transmitted reference range: 10*3/?L. The reference range was not used to interpret this result as normal/abnormal. GRAN MAT (NEUT) % (test code = 770-8) 56.4 % IMM GRAN % (test code = 7062191845) 0.40 % LYMPH % (test code = 736-9) 28.1 % MONO % (test code = 5905-5) 11.7 % EOS % (test code = 713-8) 2.6 % BASO % (test code = 706-2) 0.8 % GRAN MAT x10^3(ANC) (test code = 6925913769) 2.85 10*3/uL 1.88-7.09 IMM GRAN x10^3 (test code = 3292189394) 0.00-0.06 LYMPH x10^3 (test code = 731-0) 1.42 10*3/uL 1.32-3.29 MONO x10^3 (test code = 742-7) 0.59 10*3/uL 0.33-0.92 EOS x10^3 (test code = 711-2) 0.13 10*3/uL 0.03-0.39 BASO x10^3 (test code = 704-7) 0.04 10*3/uL 0.01-0.07 [facility] [id number] 19:45:55* Test Item Value Reference Range Interpretation Comme nts LACTIC ACID (test code = 0189906608) 1.58 mmol/L 0.50-2.20 Lab Interpretation (test cod e = 07288-4) [facility] (36454)2023-02-21 02:58:07* Test Item Value Reference Range Interpretation Comme nts NA (test code = 1791801648) 136 mmol/L 135-145 K (test code = 3823623226) 2.9 mmol/L 3.5-5.0 LL CL (test code = 9211659194) 99 mmol/L 98-108 CO2 TOTAL (test code = 3049108375) 21 mmol/L 23-31 L AGAP (test code = 2458811169) 16 2-16 BUN (test code = 7082860975) 22 mg/dL 7-23 GLUCOSE (test code = 3358673179) 101 mg/dL 70-110 CREATININE (test code = 3533034704) 0.99 mg/dL 0.50-1.04 TOTAL BILI (test code = 9096710179) 1.3 mg/dL 0.1-1.1 H CALCIUM (test code = 8893294056) 9.9 mg/dL 8.6-10.6 T PROTEIN (test code = 8260825155) 9.2 g/dL 6.3-8.2 H ALBUMIN (test code = 0147398741) 4.7 g/dL 3.5-5.0 ALK PHOS (test code = 0421017495) 85 U/L 34-122 ALTv (test code = 1742-6) 118 U/L 5-35 H AST(SGOT) (test code = 2679788108) 104 U/L 13-40 H eGFR (test code = 6492168536) 58.5 mL/min/1.73m2 SAPPHIRE (test code = SAPPHIRE) [...] imaging tests). Lab Interpretation (test code = 00345-0) Abnormal [facility] WITH [id number] 02:50:32* Test Item Value Reference Range Interpretation Comme nts WBC (test code = 6690-2) 11.84 See_Comment H [Automated [employer]] The system which generated this result transmitted reference range: 4.30 - 11.10 10*3/?L. The reference range was not used to interpret this result as normal/abnormal. RBC (test code = 789-8) 5.51 See_Comment H [Automated [employer]] The system which generated this result transmitted [...] g/dL 31.6-35.1 H RDW-SD (test code = 50379-4) 39.8 fL 39.0-49.9 RDW-CV (test code = 788-0) 13.2 % 12.0-15.5 PLT (test code = 777-3) 379 See_Comment H [Automated messa ge] The system which generated this result transmitted reference range: 166 - 358 10*3/?L. The reference range was not used to interpret this result as normal/abnormal. MPV (test code = 98477-7) 9.8 fL 9.5-12.9 NRBC/100 WBC (test code = 2731531602) 0.0 See_Comment [Automated [employer] ssage] The system which generated this result transmitted reference range: 0.0 - 10.0 /100 WBCs. The reference range was not used to interpret this result as normal/abnormal. NRBC x10^3 (test code = 7536796064) See_Comment [Automated [employer] ge] The system which generated this result transmitted reference range: 10*3/?L. The reference range was not used to interpret this result as normal/abnormal. GRAN MAT (NEUT) % (test code = 770-8) 57.8 % IMM GRAN % (test code = 7204194040) 1.20 % LYMPH % (test code = 736-9) 23.4 % MONO % (test code = 5905-5) 15.3 % EOS % (test code = 713-8) 1.5 % BASO % (test code = 706-2) 0.8 % GRAN MAT x10^3(ANC) (test code = 3369392020) 6.84 10*3/uL 1.88-7.09 IMM GRAN x10^3 (test code = 2711622795) 0.14 10*3/uL 0.00-0.06 H LYMPH x10^3 (test code = 731-0) 2.77 10*3/uL 1.32-3.29 MONO x10^3 (test code = 742-7) 1.81 10*3/uL 0.33-0.92 H EOS x10^3 (test code = 711-2) 0.18 10*3/uL 0.03-0.39 BASO x10^3 (test code = 704-7) 0.10 10*3/uL 0.01-0.07 H Lab Interpretation (test code = 51138-9) [facility]normal [facility] 02[facility]48:29* Test Item Value Reference Range Interpretation Comme nts LIPASE (test code = 5991781194) 201 U/L 0-220 Lab Interpretation (test cod e = 09707-1) Normal [facility]2023-02-21 01:52:26* Test Item Value Reference Range Interpretation Comme nts POCT GLU (test code = 2464307120) 99 mg/dL 70-110 Lab Interpretation (test cod e = 33960-4) Normal [facility] 1 [id number] 04:33:08No acute intrathoracic abnormality. Preliminary Report Dictated [...] reviewed this study and agree with the abovereport.[facility] 2019-12[facility]01 03:43:00* Test Item Value Reference Range Interpretation Comme nts TROPONIN I (test code = 5001813658) <0.012 See_Comment [Automated message] The system which [...] biotin. ? Lab Interpretation (test code = 34683-9) Normal [facility]"
--- NOTE | 2024-06-25 13:06 | RAD REPORT ---
EXAMINATION: CT ABDOMEN AND PELVIS stone protocol WITHOUT CONTRAST CLINICAL INDICATION: Female, 54 years old.ABD PAIN TECHNIQUE: CT abdomen and pelvis was performed using a stone protocol, without IV contrast, as per de partment protocol. Axial, sagittal and coronal reconstructions were obtained. One or more of the following dose reduction techniques were used: Automated exposure control, adjustment of the mA and/o r kV according to the patient size, and/or iterative reconstruction. Unless otherwise specified, incidental findings do not require dedicated imaging follow-up. [id number]. IV CONTRAST: Not administered. COMPARISON: 06/13/2024 FINDINGS: The lack of intravenous contrast limits the sensitivity of this exam for evaluation of solid visceral organs, vascular structures, and retroperitoneum. LOWER CHEST: No acute process identified.No significant pericardial effusion. Mild circumferential th ickening of the distal esophagus which could reflect esophagitis. UPPER GI: No significant abnormality. LIVER: Benign appearing low density liver lesions. No suspicious mass. GALLBLADDER/BILE DUCTS: No biliary ductal dilatation.? PANCREAS: No mass, ductal dilation, or emily-pancreatic fluid. SPLEEN: Unremarkable. ADRENALS: No adrenal masses. KIDNEYS AND URETERS: No hydronephrosis.2 mm stone in the upper pole right kidney.No ureteral calculi. ABDOMINAL AORTA AND OTHER VESSELS: Normal caliber aorta and IVC. PERITONEUM: Small volume of pelvic free fluid which is likely physiologic. LYMPH NODES: No pathologic lymphadenopathy. ABDOMINAL WALL: Unremarkable SMALL BOWEL/COLON: Small bowel has normal course and caliber. No colonic wall thickening or pericolon ic inflammatory changes.Nonvisualized appendix but no secondary signs of acute appendicitis. Mild diverticulosis without diverticulitis. URINARY BLADDER: Underdistended but grossly unremarkable. REPRODUCTIVE ORGANS: No pathologic process. MUSCULOSKELETAL: No acute or suspicious osseous abnormality. Grade 1 anterolisthesis of L4 and L5. ADDITIONAL FINDINGS: None. IMPRESSION: No acute or significant abnormalities in the abdomen or pelvis, with evaluation limited by lack of IV contrast. Nonobstructive right nephrolithiasis.
[2024-06-25 13:31] LABS: Absolute Eosinophils 0.1 K/uL (0-0.5); Absolute Lymphocytes (CBC) 1.4 K/uL (0.7-4.9); Absolute Monocytes 0.5 K/uL (0.1-1.3); Absolute Neutrophil 3.8 K/uL (1.8-8.0); Basophils % 0.3 % (0-1.3); Eosinophils % 1.1 % (0-4.4); Hematocrit 38.7 % (36.0-45.0); Hemoglobin 13.5 g/dL (12.0-15.0); Lymphocytes % 24.2 % (15.3-44.8); MCH 29.5 pg (27.0-35.0); MCHC 34.8 g/dL (32.0-36.0); MCV 84.9 fL (80-100); MPV 7.6 fL (7.6-11.3); Monocytes % 9.2 % (3.3-12.3); Neutrophils % 65.2 % (41.7-73.7); Platelets 229 thou/uL (152-406); RBC Red Blood Cell Count 4.56 M/uL (3.86-4.86); Red Cell Distribution Width 13.3 % (12.1-15.2)
[2024-06-25 13:41] LABS: Specific Gravity 1.024 (1.005-1.030); Sqamous Epithelial <5 /HPF (None Seen); Urine Bacteria None Seen /HPF (<20); Urine Bilirubin NEGATIVE (Negative); Urine Blood Negative (Negative); Urine Clarity Clear (Clear); Urine Color Yellow (Yellow); Urine Culture Reflex Order NOT NEEDED; Urine Glucose NEGATIVE (Negative); Urine Ketones NEGATIVE (Negative); Urine Microscopic Reflex YN ORDER UMIC; Urine Mucus 2+ /HPF (None Seen); Urine Nitrite NEGATIVE (Negative); Urine Protein TRACE (Negative); Urine RBC <5 /HPF (None Seen); Urine Urobilinogen 2+ (Normal); Urine WBC <5 /HPF (<5)
[2024-06-25] MEDS ORDERED: ONDANSETRON 4 MG/2 ML VIAL ONE (14:38)
[2024-06-25] MEDS ORDERED: KETOROLAC 30 MG/ML INJ ONE (14:38)
[2024-06-25] MEDS ORDERED: NA CHLORIDE 0.9% 1,000 ML ONE (14:38)
[2024-06-25 15:11] LABS: Albumin 3.2 g/dL (3.4-5.0); Albumin/Globulin Ratio 0.9 (1.1-1.8); Anion Gap 8.5 mEq/L (5.0-15.0); Bilirubin Total 0.8 mg/dL (0.2-1.0); Globulin 3.7 g/dL (2.3-3.5); Potassium 3.5 mEq/L (3.5-5.1); Protein, Total 6.9 g/dL (6.4-8.2)
--- NOTE | 2024-06-25 16:42 | ER ---
Nurse's Notes [facility] Name: Shivani Washington Age: 54 yrs Sex: Female : 1970 Arrival Date: 06/25/2024 Time: 12:09 Bed 26 Private MD: Diagnosis: Abdominal pain, Generalized;Low back pain Presentation: 06/25 12:36 Chief complaint: Right low back pain that radiates to right flank x 10 days. hb Coronavirus screen: At this time, the client does not indicate any symptoms associated with coronavirus-19. Ebola Screen: No symptoms or risks identified at this time. Initial Sepsis Screen: Does the patient meet any 2 criteria? No. Patient's initial sepsis screen is negative. Does the patient have a suspected source of infection? No. Patient's initial sepsis screen is negative. Risk Assessment: Do you want to hurt yourself or someone else? Patient reports no desire to harm self or others. Onset of symptoms was June 15, 2024. 12:36 Method Of Arrival: Ambulatory hb 12:36 Acuity: CHAITANYA 3 hb Historical: - Allergies: 12:39 No Known Allergies; hb - Home Meds: 12:39 None [Active]; hb - PMHx: 12:39 None; hb - PSHx: 12:39 Appendectomy; hb - Immunization history:: Adult Immunizations up to date. - Infectious Disease History:: Denies. - Social history:: Smoking status: Patient denies any tobacco usage or history of. Screenin:10 [facility] ED Fall Risk Assessment (Adult) History of falling in the last 3 months, jb4 including since admission No falls in past 3 months (0 pts) Confusion or Disorientation No (0 pts) Intoxicated or Sedated No (0 pts) Impaired Gait No (0 pts) Mobility Assist Device Used No (0 pt) Altered Elimination No (0 pt) Score/Fall Risk Level 0 - 2 = Low Risk Oriented to surroundings, Maintained a safe environment. Abuse screen: Denies threats or abuse. Nutritional screening: No deficits noted. Tuberculosis screening: No symptoms or risk factors identified. Assessment: 13:10 General: Appears in no apparent distress. comfortable, Behavior is calm, cooperative, jb4 appropriate for age. Pain: Complains of pain in low back area Pain does not radiate. Pain currently is 7 out of 10 on a pain scale. Neuro: Level of Consciousness is awake, alert, obeys commands, Oriented to person, place, time, situation. Cardiovascular: Patient's skin is warm and dry. Respiratory: Airway is patent Respiratory effort is even, unlabored, Respiratory pattern is regular, symmetrical. Derm: Skin is intact, Skin is pink, warm \T\ dry. Musculoskeletal: Circulation, motion, and sensation intact. Range of motion: intact in all extremities. 14:10 Reassessment: Patient appears in no apparent distress at this time. Patient and/or jb4 family updated on plan of care and expected duration. Pain level reassessed. Patient is alert, oriented x 3, equal unlabored respirations, skin warm/dry/pink. 15:10 Reassessment: Patient appears in no apparent distress at this time. Patient and/or jb4 family updated on plan of care and expected duration. Pain level reassessed. Patient is alert, oriented x 3, equal unlabored respirations, skin warm/dry/pink. Vital Signs: 12:36 BP 143 / 103; Pulse 88; Resp 16; Temp 98.3; Pulse Ox 100% on R/A; Weight 79.38 kg; hb Height 5 ft. 5 in. ; Pain 7/10; 15:51 BP 143 / 113; Pulse 64; Resp 16; Pulse Ox 100% on R/A; jb4 12:36 Body Mass Index 29.12 (79.38 kg, 165.1 cm) hb 12:36 Pain Scale: Adult hb ED Course: 12:13 Patient arrived in ED. al6 12:34 Estelle Seth FNP-C [facility]. kb 12:34 Jayme Reynolds MD is Attending Physician. kb 12:39 Triage completed. hb 12:39 Arm band placed on. hb 12:51 CT Stone Protocol In Process Unspecified. EDMS 13:25 Initial lab(s) drawn, by me, sent to lab. Urine collected:. Inserted saline lock: 22 tm3 gauge in left antecubital area, using aseptic technique. 15:10 Patient has correct armband on for positive identification. Bed in low position. Call jb4 light in reach. Side rails up X 1. Provided Education on: plan of care. 15:48 Raul Fletcher RN is Primary Nurse. jb4 17:50 IV discontinued, intact, bleeding controlled, No redness/swelling at site. Pressure jb4 dressing applied. 17:50 No provider procedures requiring assistance completed. jb4 Administered Medications: 14:53 Drug: TORadol - Ketorolac IVP 15 mg IVP once Route: IVP; Site: left antecubital; jb4 15:30 Follow up: Response: No adverse reaction; Marked relief of symptoms jb4 14:53 Drug: Ondansetron IVP 4 mg IVP once; over 2 minutes Route: IVP; Site: left antecubital; jb4 15:30 Follow up: Response: No adverse reaction; Marked relief of symptoms jb4 14:53 Drug: NS 0.9% IV 1000 ml IV at 1 bolus Per protocol; to be given as a bolus over 60 jb4 minutes Route: IV; Rate: 1 bolus; Site: left antecubital; 16:00 Follow up: Response: No adverse reaction; IV Status: Completed infusion; IV Intake: jb4 1000ml Medication: 15:10 VIS not applicable for this client. jb4 Intake: 16:00 IV: 1000ml; Total: 1000ml. jb4 Outcome: 16:42 Discharge ordered by . mark 17:50 Discharged to home ambulatory, with family, jb4 17:50 Condition: stable 17:50 Discharge instructions given to patient, Instructed on discharge instructions, follow up and referral plans. Demonstrated understanding of instructions, follow-up care, 17:58 Patient left the ED. jb4 Signatures: Dispatcher [employer] EDHI Estelle Seth, DANYELC PERSONAL LINES APPRAISER-Nasim Aragon tm3 Amanda Rubio RN RN hb Bryson, James, RN RN jb4 Ana Rai6 Corrections: (The following items were deleted from the chart) 06/26 00:06/25 17:20 No provider procedures requiring assistance completed. jb4 jb4 06/26 00:06/25 17:20 IV discontinued, intact, bleeding controlled, No redness/swelling at site. jb4 Pressure dressing applied, jb4
--- NOTE | 2024-06-25 16:42 | EDPHYS ---
Physician Documentation [facility] Name: Shivani Washington Age: 54 yrs Sex: Female : 1970 Arrival Date: 06/25/2024 Time: 12:09 Bed 26 Private MD: ED Physician Jayme Reynolds HPI: 06/25 17:50 This 54 yrs old Female presents to ER via Ambulatory with complaints of Back Pain. kb 17:51 Pt is a 54 year old female who presents for right low back pain that radiates to right kb abd that started 1.5 weeks ago and has progressively gotten worse. Denies fever, urinary symptoms. Reports nausea, vomiting and decreased appetite. Historical: - Allergies: 12:39 No Known Allergies; hb - Home Meds: 12:39 None [Active]; hb - PMHx: 12:39 None; hb - PSHx: 12:39 Appendectomy; hb - Immunization history:: Adult Immunizations up to date. - Infectious Disease History:: Denies. - Social history:: Smoking status: Patient denies any tobacco usage or history of. ROS: 17:49 Constitutional: As per HPI kb Exam: 17:49 Constitutional: This is a well developed, well nourished patient who is awake, alert, kb and in no acute distress. Head/Face: Normocephalic, atraumatic. ENT: Moist Mucous membranes Cardiovascular: Regular rate Respiratory: Respirations even and unlabored. No increased work of breathing. Talking in full sentences Skin: Warm, dry with normal turgor. Normal color. MS/ Extremity: Pulses equal, no cyanosis. Neurovascular intact. Full, normal range of motion. Neuro: Awake and alert, GCS 15, oriented to person, place, time, and situation. 17:49 Abdomen/GI: Inspection: abdomen appears normal, Bowel sounds: normal, Palpation: soft, in all quadrants, mild abdominal tenderness, in the right upper quadrant and right lower quadrant, 17:49 Back: pain, that is mild, of the right low back, Vital Signs: 12:36 BP 143 / 103; Pulse 88; Resp 16; Temp 98.3; Pulse Ox 100% on R/A; Weight 79.38 kg; hb Height 5 ft. 5 in. ; Pain 7/10; 15:51 BP 143 / 113; Pulse 64; Resp 16; Pulse Ox 100% on R/A; jb4 12:36 Body Mass Index 29.12 (79.38 kg, 165.1 cm) hb 12:36 Pain Scale: Adult hb MDM: 12:34 Medical Screening Exam initiated kb 17:50 Differential diagnosis: strain, sciatica, UTI, appendicitis, kidney stone. Data kb reviewed: vital signs, nurses notes. Counseling: I had a detailed discussion with the patient and/or guardian regarding the historical points, exam findings, and any diagnostic results supporting the discharge/admit diagnosis, lab results, radiology results, the need for outpatient follow up, a family practitioner, to return to the emergency department if symptoms worsen or persist or if there are any questions or concerns that arise at home. 06/25 12:39 Order name: CBC with Diff; Complete Time: 13:33 kb 06/25 12:39 Order name: CMP; Complete Time: 15:13 kb 06/25 12:39 Order name: Lipase; Complete Time: 15:13 kb 06/25 12:39 Order name: Urinalysis w/ reflexes; Complete Time: 13:51 kb 06/25 12:39 Order name: CT Stone Protocol; Complete Time: 13:10 kb 06/25 12:39 Order name: IV Saline Lock; Complete Time: 14:35 kb 06/25 12:39 Order name: Labs collected and sent; Complete Time: 14:34 kb 06/25 13:42 Order name: Misc. Order: recollect green top - Hemo; Complete Time: 14:53 ty Administered Medications: 14:53 Drug: TORadol - Ketorolac IVP 15 mg IVP once Route: IVP; Site: left antecubital; jb4 15:30 Follow up: Response: No adverse reaction; Marked relief of symptoms jb4 14:53 Drug: Ondansetron IVP 4 mg IVP once; over 2 minutes Route: IVP; Site: left antecubital; jb4 15:30 Follow up: Response: No adverse reaction; Marked relief of symptoms jb4 14:53 Drug: NS 0.9% IV 1000 ml IV at 1 bolus Per protocol; to be given as a bolus over 60 jb4 minutes Route: IV; Rate: 1 bolus; Site: left antecubital; 16:00 Follow up: Response: No adverse reaction; IV Status: Completed infusion; IV Intake: jb4 1000ml Disposition: 06/26 07:03 Co-signature as Attending Physician, Jayme Reynolds MD I reviewed the patient's care rt provided by the Advanced Practice Provider and agree with the diagnosis and treatment plan. Disposition Summary: 06/25/24 16:42 Discharge Ordered Notes: Location: Home kb Condition: Stable kb Diagnosis - Abdominal pain, Generalized kb - Low back pain kb Followup: kb - With: Emergency Department - When: As needed - Reason: Worsening of condition Followup: kb - With: Private Physician - When: 2 - 3 days - Reason: Recheck today's complaints, Continuance of care, Re-evaluation by your physician Discharge Instructions: - Discharge Summary Sheet kb - Musculoskeletal Pain kb - Abdominal Pain, Adult, [id number] kb Forms: - Medication Reconciliation Form kb - Antibiotic Education kb - Prescription Opioid Use kb - Patient Portal Instructions kb - Leadership Thank You Letter kb Signatures: Dispatcher [employer] EDEstelle Rodriguez, PUBLIC INFORMATION COORDINATOR-C PUBLIC INFORMATION COORDINATOR-Ckb Amanda Rubio RN RN hb Bryson, James, RN RN jb4 Jayme Reynolds MD MD rt Edward Singh ty
[2024-06-25 21:03] VITALS: TEMP 98.3; O2SAT 100
[2024-06-25 21:09] VITALS: BP 143/113
== END 2024-06-25 17:58 | disposition home or self-care (01) ==
LOC: ER 12:09
DX: R10.84 Generalized abdominal pain (principal); M54.50 Low back pain, unspecified
CPT/HCPCS: 96361; 85025; 81001; 36415; 83690; 80053; 76377; 74176; 96375; 96374; 99284; J2405; J7030

== ENCOUNTER 2024-07-15 19:02 | Emergency (ER) | payer OTHER ==
--- OUTSIDE RECORDS SUMMARY | 2024-07-15 19:05 | XMS REPORT | Continuity of Care Document ---
Author Name Unknown Address [address] [place] [address] [facility] thconnect Address 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 Name Role Phone AURELIO HENDRICKSON Primary Care Physician UnavailCORINNE Carias Attending Clinician Unavailable LAB90 Attending Clinician Unavailable ELOY WASHBURN Attending Clinician Unavailable ELOY WASHBURN Attending Clinician Unavailable ESTHER LENNON Attending Clinician Unavailable Esther Lennon MD Attending Clinician [phone] Eri Peters Attending Clinician [phone] ERI CARDONA Attending Clinician Unavailable Gabriela VILLAFANA Attending Clinician Unavailable Gabriela Arce Attending Clinician [phone] Doctor Unassigned, [place] Attending Clinician U linda Chen RN, Alba De La Cruz Attending Clinician Unavailab Melissa HOLLEY, Leonela De Jesus Attending Clinician Unavail able Kamaljit Boothe Attending Clinician [phone] KAMALJIT MORRIS Attending Clinician Unavailable ELOY WASHBURN Admitting Clinician Unavailable ESTHER LENNON Admitting Clinician Unavailable Payers Payer Name Policy Type Policy Number Effective Date Expirati on Date Source [facility] MALLORY-SELANESILVANA KESHIA COPAY FOCUS 9 [id number] 2024 00:00:00 Problems Condition Name Condition Details Condition Category Status Onset Date Resolution Date Last Treatment Date Treating Clinician Comments Source Marijuana use Marijuana use Disease Active 07-13 00:00: 00 Mallory Oliverlanesilvana - Externa l Overweight (BMI 25.0-29.9) Overweight (BMI 25.0-29.9) Disease Active 07-13 00:00: 00 Mallory Oliverlanesilvana - Externa l Elevated LFTs Elevated LFTs Disease Active 07-13 00:00: 00 Mallory Oliverybold - Externa l Abdominal pain Abdominal pain Disease Active 3-10 00:00: 00 [facility] Cystic disease of liver Cystic disease of liver Disease Active Mallory Oliverybold - Externa l Hemangioma of liver Hemangioma of liver Disease Active Mallory Oliverybold - Externa l HTN (hypertens ion) HTN (hypertens ion) Disease Active Mallory Oliverybold - Externa l Hypothyroi dism Hypothyroi dism Disease Active Mallory Oliverybold - Externa l Allergies, Adverse Reactions, Alerts Allergy Name Allergy Type Status Severity Reaction(s) Onset Date Inactive Date Treating Clinician Comments Source NO KNOWN ALLERGIE S Drug Class Active [facility] Social History Social Habit Start Date Stop Date Quantity Comments Source Exposure to SARS-CoV-2 (event) Not sure [facility] Sexual orientation Gabriela mendosajuan antonio Hernandez - External ASSERTION Not Mallory Hernandez - External Tobacco use and exposure 2024-07-13 00:00:00 2024-07-13 00:00:00 Smokeless tobacco non-user Mallory Hernandez - External Alcoholic beverage intake 2024-07-13 00:00:00 2024-07-13 00:00:00 Lifetime non-drinker (finding) Mallory Oliverlanesilvana - External History of Social function 2024-07-13 00:00:00 2024-07-13 00:00:00 Mallory Hernandez - External Sex 2023-06-25 14:09:28 2023-06-25 14:09:28 Female (finding) Mallory Selanesilvana - External Alcohol intake 2023-03-16 00:00:00 2023-03-16 00:00:00 Current non-drinker of alcohol (finding) [facility] Sex assigned at 1970 00:00:00 1970 00:00:00 Mallory Oliverlanesilvana - External Smoking Status Start Date Stop Date Source Never smoked tobacco Mallory Selanesilvana - External Medications Ordered Medication Name Filled Medication Name Start Date Stop Date Current Medication? Ordering Clinician Indication Dosage Frequency Signature (SIG) Comments Components Source Levothyroxi ne Sodium 75 MCG oral Tablet 07-13 16:26: 13 07-13 00:00 :00 No 75ug Take 1 tablet (75 mcg total) by mouth every morning. Mallory Hernandez - Segundoa l Losartan Potassium (COZAAR) 50 MG oral Tablet 07-13 00:00: 00 Yes [id number] 50mg QD Take 1 tablet (50 mg total) by mouth daily. Mallory Raymonda l KCL (KLOR-CON M20) tablet 40 mEq 2022-06 15:45: 00 03-16 16:03 :00 No 40meq 40 mEq, Oral, ONCE, 1 dose, On 03/16/23 at 1045, CANDE [facility] ketorolac (TORADOL) tablet 10 mg 2022-06 0 15:30: 00 03-16 14:50 :00 No 10mg 10 mg, Oral, ONCE, 1 dose, On 03/16/23 at 1030, Routine [facility] NaCl 0.9% (NS) bolus infusion 1,000 mL 2022-06 0 15:30: 00 03-16 16:18 :00 No 1000mL at 999 mL/hr, 1,000 mL, IV Infusion, ONCE, 1 dose, On 03/16/23 at 1030, CANDE [facility] naproxen (NAPROSYN) 500 mg tablet 2022-06 00:00: 00 Yes [id number] 500mg Take 1 tablet by mouth in the morning and 1 tablet in the evening. Take with meals. [facility] methocarbam oL 750 mg tablet 2022-06 00:00: 00 Yes [id number] 750mg Take 1 tablet by mouth 4 (four) times daily. [facility] KCL 20 mEq tablet 2022-06 00:00: 00 03-22 04:59 :00 No [id number] 20meq Take 1 tablet by mouth in the morning and 1 tablet in the evening. Do all this for 5 days. [facility] NaCl 0.9% (NS) bolus infusion 1,000 mL 02-22 23:15: 02-23 00:00 :00 No 1000mL at 999 mL/hr, 1,000 mL, IV Infusion, ONCE, 1 dose, On 02/22/23 at 1815, STAT [facility] ketorolac (TORADOL) injection 30 mg 02-22 22:45: 00 02-22 22:24 :00 No 30mg 30 mg, Slow IV Push, ONCE, 1 dose, On 02/22/23 at 1745, CANDE [facility] iopamidol (ISOVUE 370-500 mL) injection 80 mL 02-22 21:15: 00 02-22 21:25 :00 No 80mL 80 mL, Intravenou s, ONCE, 1 dose, On 02/22/23 at 1615, Routine [facility] ondansetron (ZOFRAN (PF)) injection 4 mg 02-22 20:15: 00 02-22 19:37 :00 No 4mg 4 mg, Slow IV Push, ONCE, 1 dose, On 02/22/23 at 1515, CANDE [facility] NaCl 0.9% (NS) bolus infusion 1,000 mL 02-22 20:00: 00 02-22 22:00 :00 No 1000mL at 999 mL/hr, 1,000 mL, IV Infusion, ONCE, 1 dose, On [facility] 02/22/23 at 1500, [facility] famotidine (PEPCID) 40 mg tablet 02-22 00:00: 00 Yes [id number] 40mg Take 1 tablet by mouth in the morning. [facility] ondansetron 4 mg disintegrat ing tablet 02-22 00:00: 00 Yes [id number] 4mg Take 1 tablet by mouth every 4 (four) hours as needed for Nausea and Vomiting (N/V). [facility] KCL (KLOR-CON M20) tablet 40 mEq 02-21 03:00: 00 02-21 02:57 :00 No 40meq 40 mEq, Oral, ONCE, 1 dose, On Hannah 02/20/23 at 2200, [facility] ondansetron (ZOFRAN-ODT ) disintegrat ing tablet 4 mg 02-21 01:00: 00 02-21 00:52 :00 No 4mg 4 mg, Oral, ONCE, 1 dose, On [facility] 02/20/23 at 2000, Routine [facility] naproxen (NAPROSYN) tablet 500 mg 07-15 02:30: 00 07-15 01:28 :00 No 500mg 500 mg, Oral, ONCE, 1 dose, On [facility] 07/14/21 at 2030, Routine [facility] naproxen (NAPROSYN) 500 mg tablet 07-14 00:00: 00 03-16 00:00 :00 No [id number] 500mg Take 1 tablet by mouth 2 (two) times daily with meals. [facility] albuterol 90 mcg/actuati on inhaler 11-29 00:00: 00 Yes [id number] 2{puff} Inhale 2 Puffs every 4 (four) hours as needed for Wheezing or Shortness of Breath. [facility] benzonatate 100 mg capsule 11-29 00:00: 00 Yes [id number] 100mg Take 1 capsule by mouth 3 (three) times daily as needed for Cough. [facility] levothyroxi ne 75 mcg tablet 12-09 01:05: 20 Yes 75ug Take 75 mcg by mouth every morning. [facility] levothyroxi ne 75 mcg tablet 12-08 20:05: 20 Yes 75ug Take 75 mcg by mouth every morning. [facility] dicyclomine (BENTYL) 20 mg tablet 07-06 00:00: 00 Yes [id number] 20mg Take 1 tablet by mouth 4 (four) times daily as needed for Abdominal pain. [facility] Vital Signs Vital Name Observation Time Observation Value Comments S ource Systolic blood pressure 2024-07-13 22:12:00 170 mm[Hg] Mallory alfonso ld - External Diastolic blood pressure 2024-07-13 22:12:00 110 mm[Hg] Mallory alfonso barba - External Heart rate 2024-07-13 22:08:00 78 /min Kassy Hernandez - External Body temperature 2024-07-13 22:08:00 36.61 Jane Mallory fang - External Respiratory rate 2024-07-13 22:08:00 20 /min Mallory Hernandez - External Body height 2024-07-13 22:08:00 165.1 cm Lurdes dodson fang - External Body weight 2024-07-13 22:08:00 78.586 kg Lurdes dodson laneold - External BMI 2024-07-13 22:08:00 28.83 kg/m2 Lurdes dodson fang - External Oxygen saturation in Arterial blood by Pulse oximetry 2024-07-13 22:08:00 98 /min Mallory barba - External Systolic blood pressure 2023-03-16 16:00:00 166 mm[Hg] [facility] Diastolic blood pressure 2023-03-16 16:00:00 96 mm[Hg] [facility] Heart rate 2023-03-16 16:00:00 66 /min Myles [facility] Respiratory rate 2023-03-16 16:00:00 20 /min [facility] Oxygen saturation in Arterial blood by Pulse oximetry 2023-03-16 16:00:00 96 /min [facility] Body temperature 2023-03-16 15:56:00 35.56 Jane [facility] Body height 2023-03-16 14:14:[address] [facility] Body weight 2023-03-16 14:14:[address] [facility] BMI 2023-03-16 14:14:00 28.08 kg/m2 [facility] Systolic blood pressure 2023-02-22 23:24:00 137 mm[Hg] [facility] Diastolic blood pressure 2023-02-22 23:24:00 91 mm[Hg] [facility] Heart rate 2023-02-22 23:24:00 65 /min Unive [facility] Respiratory rate 2023-02-22 23:24:00 20 /min [facility] Oxygen saturation in Arterial blood by Pulse oximetry 2023-02-22 23:24:00 99 /min [facility] Body temperature 2023-02-22 22:24:00 36.17 Jane [facility] Body weight 2023-02-22 18:55:[address] [facility] BMI 2023-02-22 18:55:00 28.73 kg/m2 [facility] Systolic blood pressure 2023-02-21 02:15:29 141 mm[Hg] [facility] Diastolic blood pressure 2023-02-21 02:15:29 107 mm[Hg] [facility] Heart rate 2023-02-21 02:15:29 79 /min Unive [facility] Respiratory rate 2023-02-21 02:15:29 19 /min [facility] Oxygen saturation in Arterial blood by Pulse oximetry 2023-02-21 02:15:29 97 /min [facility] Body temperature 2023-02-21 00:56:51 36.5 Jane [facility] Body height 2023-02-20 23:07:[address] [facility] Body weight 2023-02-20 23:07:[address] [facility] BMI 2023-02-20 23:07:00 28.73 kg/m2 [facility] Systolic blood pressure 2021-07-15 00:41:00 143 mm[Hg] [facility] Diastolic blood pressure 2021-07-15 00:41:00 97 mm[Hg] [facility] Heart rate 2021-07-15 00:41:00 95 /min [facility] Body temperature 2021-07-15 00:41:00 36.56 Jane [facility] Respiratory rate 2021-07-15 00:41:00 18 /min [facility] Body weight 2021-07-15 00:41:[address] [facility] BMI 2021-07-15 00:41:00 27.44 kg/m2 [facility] Oxygen saturation in Arterial blood by Pulse oximetry 2021-07-15 00:41:00 100 /min [facility] Systolic blood pressure 2019-12-01 04:30:00 120 mm[Hg] [facility] Diastolic blood pressure 2019-12-01 04:30:00 84 mm[Hg] [facility] Heart rate 2019-12-01 04:30:00 70 /min [facility] Respiratory rate 2019-12-01 04:30:00 15 /min [facility] Oxygen saturation in Arterial blood by Pulse oximetry 2019-12-01 04:30:00 100 /min [facility] Body temperature 2019-12-01 02:52:00 37.11 Jane [facility] Body weight 2019-12-01 02:52:[address] [facility] BMI 2019-12-01 02:52:00 27.44 kg/m2 [facility] Procedures Procedure Date / Time Performed Performing Clinician Source COMP. METABOLIC PANEL (70858) 2023-03-16 14:38:00 Eloy Washburn [facility] CBC WITH DIFF 2023-03-16 [facility] 14:38:[address] [facility] URINE DRUG (IMMUNOASSAY) - COMPREHENSIVE DRUG SCREEN W/O REFLEX 2023-03-16 [facility]:38[facility] & RHYTHM STRIP 2023-03-16 14:11:28 Maddison [facility] CONSENT/REFUSAL FOR DIAGNOSIS AND TREATMENT 2023-03-16 14:05:43 Doctor Unassigned, [place] [facility] CT ABDOMEN PELVIS W CONTRAST 2023-02-22 21:24:57 Esther Lennon [facility] LACTIC ACID WHOLE BLOOD 2023-02-22 19:39:00 Do justice Lennon [facility] CREATINE KINASE 2023-02-22 19:38:00 [facility] 2023-02-22 19:38:00 Esther Lennon [facility] MAGNESIUM 2023-02-22 19:38:00 Esther Lennon [facility] COMP. METABOLIC PANEL ([id number]) 2023-02-22 19:38:00 Esther Lennon [facility] CBC WITH DIFF 2023-02-22 19:38:[address] [facility] URINALYSIS 2023-02-22 19:38:00 Esther Lennon [facility] URINE DRUG (IMMUNOASSAY) - COMPREHENSIVE DRUG SCREEN W/O REFLEX 2023-02-22 19:38:00 Esther Lennon [facility] CONSENT/REFUSAL FOR DIAGNOSIS AND TREATMENT 2023-02-22 18:49:26 Doctor Unassigned, [place] [facility] LIPASE 2023-02-21 02:04:[address] [facility] COMP. METABOLIC PANEL ([id number]) 2023-02-21 02:04:00 Eri Cardona [facility] CBC WITH DIFF 2023-02-21 02:04:00 [facility] POCT GLUCOSE (AUTOMATED) 2023-02-21 01:50:00 Denilson Cardona [facility] URINALYSIS 2023-02-21 00:52:[address] [facility] ASSIGNMENT OF BENEFITS 2023-02-21 00:10:31 Docto r Unassigned, [place] [facility] RAPID INFLUENZA A/B 2023-02-21 00:05:00 Eri Cardona [facility] COVID-19 (ID NOW RAPID TESTING) 2023-02-21 00:05:00 Eri Cardona [facility] CONSENT/REFUSAL FOR DIAGNOSIS AND TREATMENT 2023-02-20 22:56:07 Doctor Unassigned, [place] [facility] NOTICE OF PRIVACY PRACTICES 2021-07-15 00:35:54 Doctor Unassigned, [place] [facility] CONSENT/REFUSAL FOR DIAGNOSIS AND TREATMENT 2021-07-15 00:35:24 Doctor Unassigned, [place] [facility] XR CHEST 1 VW 2019-12-01 03:35:08 [facility] 2019-12-01 03:08:[address] [facility] EKG-12 LEAD 2019-12-01 02:57:[address] [facility] ASSIGNMENT OF BENEFITS 2019-12-01 02:30:55 Docto r Unassigned, [place] [facility] CONSENT/REFUSAL FOR DIAGNOSIS AND TREATMENT 2019-12-01 02:30:26 Doctor Unassigned, [place] [facility] AUTHORIZATION FOR RELEASE OF PHI 2019-01-22 05:01:00 Doctor Unassigned, [place] [facility] Encounters Start Date/Time End Date/Time Encounter Type Admission Type Attending [facility] Care Department Encounter ID Source 2024-07-21 08:00:00 2024-07-21 08:00:00 Outpatient CORINNE MIRANDA [id number] Mallory Hernandez 2024-07-14 08:10:00 2024-07-14 08:10:00 Outpatient LAB90 MALLORY WARNER [id number] Mallory Hernandez 2024-07-13 16:30:00 2024-07-13 16:30:00 Outpatient CORINNE MIRANDA [id number] Mallory Hernandez 2024-07-13 00:00:00 2024-07-13 00:00:00 Outpatient CORINNE MIRANDA [id number] Mallory Hernandez 2023-03-26 14:50:11 2023-03-26 14:50:11 Outpatient [facility] [id number] Kartik Esteves 2023-03-16 09:08:00 2023-03-16 11:21:00 Emergency X ELOY WASHBURNELOY [place] [facility] ERT [id number] [facility] 2023-03-16 09:08:00 2023-03-16 11:21:00 Emergency Eloy Washburn [facility] 1.2.840.114 350.1.13.10 4.2.7.2.686 [id number] [facility] 2023-02-22 13:57:00 2023-02-22 19:30:00 Emergency X SAJI ESTHER [facility] ERT [id number] [facility] 2023-02-22 13:57:00 2023-02-22 19:30:00 Emergency SajiEsther [facility] 1.2.840.114 350.1.13.10 4.2.7.2.686 [id number] [facility] 2023-02-20 18:08:00 2023-02-20 22:50:00 Emergency Eri Cardona [facility] 1.2.840.114 350.1.13.10 4.2.7.2.686 [id number] [facility] 2023-02-20 18:08:00 2023-02-20 22:50:00 Emergency X ERI CARDONA [facility] ERT [id number] [facility] 2021-07-14 18:42:00 2021-07-14 19:43:00 Emergency X Gabriela VILLAFANA [facility] ERT [id number] [facility] 2021-07-14 18:42:00 2021-07-14 19:43:00 Emergency Gabriela Villafana [facility] 1.2.840.114 350.1.13.10 4.2.7.2.686 [id number] [facility] 2021-07-14 00:00:00 2021-07-14 00:00:00 Orders Only Doctor Unassigned, [place] [facility] 1.2.840.114 350.1.13.10 4.2.7.2.686 [id number] [facility] 2019-12-06 00:00:00 2019-12-06 00:00:00 Letter (Out) Alba Chen [facility] 1.2.840.114 350.1.13.10 4.2.7.2.686 [id number] [facility] 2019-12-05 00:00:00 2019-12-05 00:00:00 Telephone Leonela Benson [facility] 1.2.840.114 350.1.13.10 4.2.7.2.686 [id number] [facility] 2019-11-30 21:33:45 2019-11-30 23:43:00 Emergency Kamaljit Morris [facility] 1.2.840.114 350.1.13.10 4.2.7.2.686 [id number] [facility] 2019-11-30 21:33:45 2019-11-30 21:33:45 Emergency X ARTUROKAMALJIT [facility] ERT [id number] [facility] 2019-11-30 00:00:00 2019-11-30 00:00:00 Orders Only Doctor Unassigned, [place] [facility] 1.2.840.114 350.1.13.10 4.2.7.2.686 [id number] [facility] 2019-01-22 00:00:00 2019-01-22 00:00:00 Orders Only Doctor Unassigned, [place] [facility] 1.2.840.114 350.1.13.10 4.2.7.2.686 [id number] [facility] Results Test Description Test Time Test Comments Results Result Co mments Source [facility] WITH [id number] 15:04:12* Test Item Value Reference Range Interpretation Comme nts WBC (test code = 6690-2) 5.05 See_Comment [Automated messa ge] The system which generated this result transmitted reference range: 4.30 - 11.10 10*3/?L. The reference range was not used to interpret this result as normal/abnormal. RBC (test code = 789-8) 4.56 See_Comment [Automated messa ge] The system which [...] 34.5 g/dL 31.6-35.1 RDW-SD (test code = 10354-4) 41.0 fL 39.0-49.9 RDW-CV (test code = 788-0) 12.9 % 12.0-15.5 PLT (test code = 777-3) 211 See_Comment [Automated messa ge] The system which generated this result transmitted reference range: 166 - 358 10*3/?L. The reference range was not used to interpret this result as normal/abnormal. MPV (test code = 73114-5) 9.6 fL 9.5-12.9 NRBC/100 WBC (test code = 7856927752) 0.0 See_Comment [Automated me ssage] The system which generated this result transmitted reference range: 0.0 - 10.0 /100 WBCs. The reference range was not used to interpret this result as normal/abnormal. NRBC x10^3 (test code = 7762977546) See_Comment [Automated me ssage] The system which generated this result transmitted reference range: 10*3/?L. The reference range was not used to interpret this result as normal/abnormal. GRAN MAT (NEUT) % (test code = 770-8) 56.4 % IMM GRAN % (test code = 6229463839) 0.40 % LYMPH % (test code = 736-9) 28.1 % MONO % (test code = 5905-5) 11.7 % EOS % (test code = 713-8) 2.6 % BASO % (test code = 706-2) 0.8 % GRAN MAT x10^3(ANC) (test code = 9052831841) 2.85 10*3/uL 1.88-7.09 IMM GRAN x10^3 (test code = 7975901505) 0.00-0.06 LYMPH x10^3 (test code = 731-0) 1.42 10*3/uL 1.32-3.29 MONO x10^3 (test code = 742-7) 0.59 10*3/uL 0.33-0.92 EOS x10^3 (test code = 711-2) 0.13 10*3/uL 0.03-0.39 BASO x10^3 (test code = 704-7) 0.04 10*3/uL 0.01-0.07 [facility] [id number] 19:45:55* Test Item Value Reference Range Interpretation Comme nts LACTIC ACID (test code = 9205965827) 1.58 mmol/L 0.50-2.20 Lab Interpretation (test cod e = 63542-9) Normal [facility] ([id number])2023-02-21 02:58:07* Test Item Value Reference Range Interpretation Comme nts NA (test code = 0084950895) 136 mmol/L 135-145 K (test code = 2231037841) 2.9 mmol/L 3.5-5.0 LL CL (test code = 6569784113) 99 mmol/L 98-108 CO2 TOTAL (test code = 6492235683) 21 mmol/L 23-31 L AGAP (test code = 0369591603) 16 2-16 BUN (test code = 5964264296) 22 mg/dL 7-23 GLUCOSE (test code = 7367538805) 101 mg/dL 70-110 CREATININE (test code = 9284279885) 0.99 mg/dL 0.50-1.04 TOTAL BILI (test code = 8801124899) 1.3 mg/dL 0.1-1.1 H CALCIUM (test code = 7492585946) 9.9 mg/dL 8.6-10.6 T PROTEIN (test code = 7219948056) 9.2 g/dL 6.3-8.2 H ALBUMIN (test code = 8546683458) 4.7 g/dL 3.5-5.0 ALK PHOS (test code = 1895164978) 85 U/L 34-122 ALTv (test code = 1742-6) 118 U/L 5-35 H AST(SGOT) (test code = 3486814156) 104 U/L 13-40 H eGFR (test code = 4113565856) 58.5 mL/min/1.73m2 SAPPHIRE (test code = SAPPHIRE) [...] imaging tests). Lab Interpretation (test code = 11066-0) Abnormal [facility] WITH [id number] 02:50:32* Test Item Value Reference Range Interpretation Comme nts WBC (test code = 6690-2) 11.84 See_Comment H [Automated messa ge] The system which generated this result transmitted reference range: 4.30 - 11.10 10*3/?L. The reference range was not used to interpret this result as normal/abnormal. RBC (test code = 789-8) 5.51 See_Comment H [Automated messa ge] The system [...] g/dL 31.6-35.1 H RDW-SD (test code = 88479-2) 39.8 fL 39.0-49.9 RDW-CV (test code = 788-0) 13.2 % 12.0-15.5 PLT (test code = 777-3) 379 See_Comment H [Automated messa ge] The system which generated this result transmitted reference range: 166 - 358 10*3/?L. The reference range was not used to interpret this result as normal/abnormal. MPV (test code = 12634-8) 9.8 fL 9.5-12.9 NRBC/100 WBC (test code = 1556985731) 0.0 See_Comment [Automated me ssage] The system which generated this result transmitted reference range: 0.0 - 10.0 /100 WBCs. The reference range was not used to interpret this result as normal/abnormal. NRBC x10^3 (test code = 2235286576) See_Comment [Automated messa ge] The system which generated this result transmitted reference range: 10*3/?L. The reference range was not used to interpret this result as normal/abnormal. GRAN MAT (NEUT) % (test code = 770-8) 57.8 % IMM GRAN % (test code = 6069936902) 1.20 % LYMPH % (test code = 736-9) 23.4 % MONO % (test code = 5905-5) 15.3 % EOS % (test code = 713-8) 1.5 % BASO % (test code = 706-2) 0.8 % GRAN MAT x10^3(ANC) (test code = 5031370703) 6.84 10*3/uL 1.88-7.09 IMM GRAN x10^3 (test code = 8589141507) 0.14 10*3/uL 0.00-0.06 H LYMPH x10^3 (test code = 731-0) 2.77 10*3/uL 1.32-3.29 MONO x10^3 (test code = 742-7) 1.81 10*3/uL 0.33-0.92 H EOS x10^3 (test code = 711-2) 0.18 10*3/uL 0.03-0.39 BASO x10^3 (test code = 704-7) 0.10 10*3/uL 0.01-0.07 H Lab Interpretation (test code = 30917-6) [facility]29* Test Item Value Reference Range Interpretation Comme nts LIPASE (test code = [id number]) 201 U/L 0-220 Lab Interpretation (test cod e = 08338-5) [facility]2023-02-21 01:52:26* Test Item Value Reference Range Interpretation Comme nts POCT GLU (test code = [id number]) 99 mg/dL 70-110 Lab Interpretation (test cod e = 81452-9) Normal [facility] 1 [id number] 04:33:08No acute intrathoracic abnormality. Preliminary Report Dictated [...] reviewed this study and agree with the abovereport.[facility] 2019[facility] 03:43:00* Test Item Value Reference Range Interpretation Comme nts TROPONIN I (test code = [id number]) <0.012 See_Comment [Automated message] The system which [...] biotin. ? Lab Interpretation (test code = 34476-1) Normal [facility]"
[2024-07-15 19:47] LABS: Absolute Basophils 0.1 K/uL (0-0.5); Absolute Eosinophils 0.2 K/uL (0-0.5); Absolute Lymphocytes (CBC) 2.4 K/uL (0.7-4.9); Absolute Monocytes 0.7 K/uL (0.1-1.3); Basophils % 1.1 % (0-1.3); Eosinophils % 2.4 % (0-4.4); Hematocrit 40.6 % (36.0-45.0); Lymphocytes % 38.2 % (15.3-44.8); MCHC 34.6 g/dL (32.0-36.0); MCV 86.7 fL (80-100); MPV 7.7 fL (7.6-11.3); Monocytes % 10.9 % (3.3-12.3); Neutrophils % 47.4 % (41.7-73.7); Nucleated Red Blood Cells % 0.1 % (0-0); Platelets 222 thou/uL (152-406); RBC Red Blood Cell Count 4.68 M/uL (3.86-4.86)
[2024-07-15 20:14] LABS: Anion Gap 8.6 mEq/L (5.0-15.0); BUN Blood Urea Nitrogen 10 mg/dL (7-18); Bicarbonate 26 mEq/L (21-32); Glomerular Filtration Rate 102 ml/min (=/>90); Glucose Level 91 mg/dL (74-106); Potassium 3.6 mEq/L (3.5-5.1); Sodium Level 140 mEq/L (136-145)
[2024-07-15 20:17] LABS: Troponin High Sensitivity < 3.0 pg/mL (<58.9)
--- NOTE | 2024-07-15 21:01 | RAD REPORT ---
EXAMINATION: ONE VIEW CHEST XR CLINICAL INDICATION: Female, 54 years old.,CHEST PAIN TECHNIQUE: Frontal chest projection is submitted. Examination is limited by patient positioning and t echnique. COMPARISON: 06/04/2024 FINDINGS: The lungs are well inflated and clear. No pneumothorax or sizable effusion. The heart is normal in s ize. Mediastinal contours are unremarkable. IMPRESSION: No acute intrathoracic abnormalities.
[2024-07-15] MEDS ORDERED: HYDRALAZINE HCL 20 MG/ML VIAL ONE (23:32)
[2024-07-15 23:57] LABS: Barbiturates NEGATIVE (NEGATIVE); Benzodiazepines NEGATIVE (NEGATIVE); Cocaine NEGATIVE (NEGATIVE); METHAMPHETAM NEGATIVE (NEGATIVE); Methadone NEGATIVE (NEGATIVE); Opiates NEGATIVE (NEGATIVE); Phencyclidine NEGATIVE (NEGATIVE); THC Cannibis POSITIVE (NEGATIVE)
--- NOTE | 2024-07-16 01:22 | RAD REPORT ---
EXAM: Head Brain Wo Cont CLINICAL INDICATION: htn;Confused. COMPARISON: none available. TECHNIQUE: CT of the head was obtained without contrast. Reformats: coronal and sagittal. This exam was performed according to our department optimization program which includes automated exp osure control, adjustment of the mA and/or kv according to patient size and/or use of iterative reconstruction technique. FINDINGS: Head: Parenchyma: no acute intraparenchymal hemorrhage. No midline shift. The raymond-white interface is prese rved. Extra-axial spaces: Subtle hyperdense thickening of the anterior interhemispheric falx. Ventricles: normal in size and configuration. Orbits/sinuses: Mild mucosal thickening and fluid in maxillary and sphenoid sinuses. The visualized o rbits are unremarkable. Bones/scalp: no acute skull fracture identified. The scalp appears unremarkable. IMPRESSION: 1. Subtle hyperdense thickening of the anterior interhemispheric falx, suspicious for a small amoun t of subdural blood versus nonhemorrhagic thickening. Recommend MRI with gradient imaging to evaluate blood products versus short-term follow-up CT. 2. Mild mucosal thickening and fluid in maxillary and sphenoid sinuses. Results called to and acknowledged by the physician at 1:13 AM GAME ROOM ATTENDANT central time Electronically signed by: Preston Branham MD 07/16/2024 01:15 AM GAME ROOM ATTENDANT Workstation: Refinder by [employer] [id number] Due to temporary technical issues with the PACS/[employer] reporting system, reports are being concepcion d by the in-house radiologist without review as a courtesy to ensure prompt reporting the interpreting radiologist is fully responsible for the content of the report. Transcribed Date/Time: 07/16/2024 1:22 AM
--- NOTE | 2024-07-16 01:23 | RAD REPORT ---
CLINICAL HISTORY: Dissection. COMPARISON: CT Abdomen Pelvis 06/25/2024. TECHNIQUE: CT CHEST ABDOMEN PELVIS ANGIOGRAPHY WITH IV CONTRAST on 07/15/2024 10:38 PM CATERING OPERATIONS MANAGER. MIPS recon structions were generated. This exam was performed according to our departmental dose-optimization program, which includes autom ated exposure control, adjustment of the mA and/or kV according to patient size and/or use of iterative reconstruction technique. FINDINGS: Vascular: Thoracic aorta is normal in course and caliber without aneurysm or dissection. Pulmonary ar teries are adequately opacified without acute or chronic filling defects. Abdominal aorta is normal in course and caliber without aneurysm. Pelvic arteries are patent without aneurysm or occlusion. Chest: The heart is normal in size. There is no pericardial effusion. Intrathoracic lymph nodes are n ot enlarged. There is no pleural effusion, pleural thickening or pneumothorax. Central airways are patent. Lungs a re clear with no consolidation, mass or interstitial lung disease. Abdomen: The liver is normal in appearance. There is no biliary dilatation. Gallbladder is relatively decompressed. The pancreas and spleen are normal in appearance. The adrenal glands and kidneys are unremarkable. There is no free air. There is no retroperitoneal adenopathy. Pelvis: There is no bowel obstruction. Urinary bladder is unremarkable. There is no free fluid. Uteru s is normal in size. Appendix is absent. Skeleton: There are no acute osseous findings. No suspicious bony lesions. IMPRESSION: No aortic dissection or aneurysm. No pulmonary embolus. No definite acute process. Electronically signed by: Bossman Bray MD 07/16/2024 01:14 AM CATERING OPERATIONS MANAGER RP Due to temporary technical issues with the PACS/[employer] reporting system, reports are being concepcion d by the in-house radiologist without review as a courtesy to ensure prompt reporting the interpreting radiologist is fully responsible for the content of the report. Transcribed Date/Time: 07/16/2024 1:22 AM
--- NOTE | 2024-07-16 01:24 | ER ---
Nurse's Notes [facility] Name: Shivani Washington Age: 54 yrs Sex: Female : 1970 Arrival Date: 07/15/2024 Time: 19:02 Bed 15 Private MD: Diagnosis: Nontraumatic acute subdural hemorrhage;Essential (primary) hypertension;Acute hypertensive urgency, subdural falx hematoma Presentation: 07/15 19:20 Chief complaint: Patient states: her BP has been running high, they started her on BP iw meds three day ago but it's still been high. Coronavirus screen: At this time, the client does not indicate any symptoms associated with coronavirus-19. Ebola Screen: No symptoms or risks identified at this time. Initial Sepsis Screen: Does the patient meet any 2 criteria? No. Patient's initial sepsis screen is negative. Does the patient have a suspected source of infection? No. Patient's initial sepsis screen is negative. Risk Assessment: Do you want to hurt yourself or someone else? Patient reports no desire to harm self or others. Onset of symptoms was July 15, 2024. 19:20 Method Of Arrival: Ambulatory iw 19:20 Acuity: CHAITANYA 3 iw Historical: - Allergies: 19:21 No Known Allergies; iw - Home Meds: 23:03 losartan 50 mg oral tablet 1 tab daily for hypertension [Active]; sb4 - PMHx: 19:21 Hypertensive disorder; iw - PSHx: 19:21 Appendectomy; iw - Immunization history:: Adult Immunizations not up to date. - Infectious Disease History:: Denies. - Social history:: Smoking status: Patient denies any tobacco usage or history of. Screenin:45 [facility] ED Fall Risk Assessment (Adult) History of falling in the last 3 months, kj2 including since admission No falls in past 3 months (0 pts) Confusion or Disorientation No (0 pts) Intoxicated or Sedated No (0 pts) Impaired Gait No (0 pts) Mobility Assist Device Used No (0 pt) Altered Elimination No (0 pt) Score/Fall Risk Level 0 - 2 = Low Risk Maintained a safe environment, Hourly rounding (assess needs \T\ fall precautionary measures) done. Abuse screen: Denies threats or abuse. Denies injuries from another. Nutritional screening: No deficits noted. Tuberculosis screening: No symptoms or risk factors identified. Assessment: 22:45 General: Appears in no apparent distress. Behavior is cooperative. Pain: Denies pain. kj2 Neuro: Level of Consciousness is awake, alert, obeys commands, Oriented to person, place, time, situation. Cardiovascular: Patient's skin is warm and dry. Respiratory: Airway is patent Respiratory effort is even, unlabored. GI: No signs and/or symptoms were reported involving the gastrointestinal system. : No signs and/or symptoms were reported regarding the genitourinary system. 07/16 03:00 Reassessment: ASSUMED CARE OF PT. PT LYING IN BED. NO DISTRESS NOTED. TERE STILL jj7 ELEVATED. NO NEEDS AT THIS TIME. General: Appears in no apparent distress. comfortable, Behavior is calm, cooperative, appropriate for age, anxious. Pain: Denies pain. Neuro: Level of Consciousness is awake, alert, obeys commands, Oriented to person, place, time, situation, Appropriate for age. 04:00 Pain: Complains of pain in left mandaeism and left zygomatic area Pain currently is 8 out jj7 of 10 on a pain scale. Neuro: Reports headache in left. 04:34 Reassessment: REPORT GIVEN TO OLI HOLLEY. j 05:00 Reassessment: [facility] AT BEDSIDE TO TRANSFER PT. [facility] 05:00 Pain: Pain currently is 4 out of 10 on a pain scale. jj7 Vital Signs: 07/15 19:20 BP 172 / 103; Pulse 64; Resp 18; Temp 97.6; Pulse Ox 100% on R/A; Weight 78.02 kg; iw Height 5 ft. 5 in. ; Pain 5/10; 23:30 BP 176 / 124; Pulse 60; Resp 18; Pulse Ox 100% on R/A; kj2 07/16 00:03 BP 159 / 95; Pulse 67; kj2 01:15 BP 182 / 109; Pulse 80; Resp 17 S; Temp 97.9(T); Pulse Ox 99% on R/A; ha1 01:57 BP 145 / 87; Pulse 84; Resp 18; Temp 97.8(O); Pulse Ox 98% on R/A; ha1 03:00 BP 151 / 98; Pulse 94; Resp 16; Pulse Ox 97% ; jj7 04:00 BP 135 / 100; Pulse 87; Resp 17; Pulse Ox 98% ; jj7 04:30 BP 120 / 86; Pulse 89; Resp 16; Pulse Ox 97% ; jj7 07/15 19:20 Body Mass Index 28.62 (78.02 kg, 165.1 cm) iw 07/15 19:20 Pain Scale: Adult NIH Stroke Scale Scores: 01:25 NIHSS Score: 0 sb4 ED Course: 07/15 19:00 Initial lab(s) drawn, by me, sent to lab. Inserted saline lock: 22 gauge in right iw antecubital area, using aseptic technique. Blood collected. Flushed with 10 mL NS. 19:03 Patient arrived in ED. ra3 19:08 Leslee De La Fuente [facility]-C [facility] sb4 19:08 Jayme Reynolds MD is Attending Physician. sb4 19:21 Triage completed. iw 19:21 Arm band placed on. iw 19:51 XRAY Chest (1 view) In Process Unspecified. EDMS 22:45 Provided Education on: call light. kj2 23:11 UDS Sent. rk3 23:19 Margarita Mayes, RN is Primary Nurse. kj2 23:25 Patient has correct armband on for positive identification. Bed in low position. Call kj2 light in reach. 07/16 00:07 Report given to LEYDI Perkins. kj2 00:55 Head Brain Wo Cont CT In Process Unspecified. EDMS 00:55 CT Aorta for Dissection In Process Unspecified. EDMS 02:18 Warm blanket given. rk3 03:15 Attending Physician role handed off by Jayme Reynolds MD sp4 03:15 Rj Núñez MD is Attending Physician. sp4 05:09 No provider procedures requiring assistance completed. Patient transferred, IV remains jj7 in place. Administered Medications: 07/15 23:36 Drug: hydrALAZINE IVP 10 mg IVP once Route: IVP; Site: right antecubital; kj2 07/16 00:03 Follow up: Response: No adverse reaction kj2 01:46 Drug: hydrALAZINE IVP 10 mg IVP once Route: IVP; Site: right antecubital; ha1 01:59 Follow up: Response: No adverse reaction; Blood pressure is lowered ha1 04:25 Drug: metoCLOPramide IVP 10 mg IVP once; over 1 to 2 minutes Route: IVP; Site: right 7 antecubital; 05:00 Follow up: Response: Marked relief of symptoms; Pain is decreased jj7 04:26 Drug: diphenhydrAMINE IVP 25 mg IVP once Route: IVP; Site: right antecubital; jj7 05:00 Follow up: Response: Marked relief of symptoms; Pain is decreased jj7 04:26 Drug: HYDROcodone-acetaminophen PO 5 mg-325 mg 2 tabs PO once Route: PO; jj7 05:00 Follow up: Response: Marked relief of symptoms; Pain is decreased jj7 04:26 Drug: Keppra IV 1000 mg IV at bolus once Route: IV; Rate: bolus; Site: right 7 antecubital; 04:50 Follow up: IV Status: Completed infusion jj7 Medication: 07/15 23:00 VIS not applicable for this client. kj2 Outcome: 07/16 01:23 ER care complete, transfer ordered by sb4 05:09 [facility] to [facility], Transfer jj7 form completed. X-rays sent w/ patient. 05:09 Condition: improved 05:09 Patient left the ED. jj7 NIH Stroke Scale - NIH Stroke Score Date: 07/16/2024 Time: 01:25 Total Score = 0 10. Dysarthria (speech clarity - read or repeat words) - 0(Normal) 11. Extinction and Inattention (visual/tactile/auditory/spatial/personal) - 0(No abnormality) 1a. Level of Consciousness (LOC) - 0(Alert) 1b. Level of Consciousness (LOC) (Month \T\ Age) - 0(Both) 1c. LOC Commands (Open \T\ Closes Eyes/Checker) - 0(Both) 2. Best Gaze (Lateral Gaze Paresis) - 0(Normal) 3. Visual Field Loss - 0(No visual loss) 4. Facial Palsy - 0(Normal) 5a. Left Arm: Motor (10-second hold) - 0(No drift) 5b. Right Arm: Motor (10-second hold) - 0(No drift) 6a. Left Leg: Motor (5-second hold - always test supine) - 0(No drift) 6b. Right Leg: Motor (5-second hold - always test supine) - 0(No drift) 7. Limb Ataxia (finger/nose \T\ heel/hopper - test with eyes open) - 0(Absent) 8. Sensory Loss (pinprick arms/legs/face) - 0(Normal) 9. Best Language: Aphasia (description/naming/reading) - 0(No aphasia) Initials: sb4 Signatures: Dispatcher [employer] EDMS Fatimah Valdez RN RN iw Maddie Miller RN RN ha1 Fidencio Santiago RN RN Leslee Gilmore, RIVKA PAIlana sb4 Rj Núñez MD MD sp4 Socorro Shea ra3 Margarita Mayes RN RN kj2 Walter Solis rk3 Corrections: (The following items were deleted from the chart) 07/15 19:22 19:20 BP 165 / ???; Pulse 64bpm; Resp 18bpm; Pulse Ox 100% RA; Temp 97.6F; iw 78.02 kg; Height 5 ft. 5 in.; BMI: 28.6; Pain 5/10, Adult; iw 07/16 05:20 04:00 Pain: Complains of pain in left mandaeism and left zygomatic area jj7 jj7 05:23 05:23 Patient left the ED. jj7 jj7
--- NOTE | 2024-07-16 01:24 | EDPHYS ---
Physician Documentation [facility] Name: Shivani Washington Age: 54 yrs Sex: Female : 1970 Arrival Date: 07/15/2024 Time: 19:02 Bed 15 Private MD: ED Physician Rj Núñez HPI: 07/15 23:19 This 54 yrs old Female presents to ER via Ambulatory with complaints of Blurred Vision, sb4 High Blood Pressure. 23:19 patient states she has had "stomach problems" for the past month or so as well as sb4 elevated blood pressure. she was started on losartan 3 days ago but states her BP has still been running high. she went to get an EGD today and was turned away due to her BP being high. states that she feels like she is confused and is having visual changes. additionally, she states she has a pain in her chest that radiates to her back. Historical: - Allergies: 19:21 No Known Allergies; iw - Home Meds: 23:03 losartan 50 mg oral tablet 1 tab daily for hypertension [Active]; sb4 - PMHx: 19:21 Hypertensive disorder; iw - PSHx: 19:21 Appendectomy; iw - Immunization history:: Adult Immunizations not up to date. - Infectious Disease History:: Denies. - Social history:: Smoking status: Patient denies any tobacco usage or history of. ROS: 23:19 Constitutional: Negative for fever, chills, and weight loss, sb4 23:19 Cardiovascular: Positive for chest pain, 23:19 Neuro: Positive for dizziness, headache, visual changes, 23:19 All other systems are negative, Exam: 23:19 Constitutional: This is a well developed, well nourished patient who is awake, alert, sb4 and in no acute distress. Head/Face: Normocephalic, atraumatic. Eyes: Extra-ocular motions intact. Periorbital areas with no swelling, redness, or edema. ENT: Mucous membranes moist. Cardiovascular: Regular rate and rhythm with a normal S1 and S2. Respiratory: No increased work of breathing, no retractions or nasal flaring. Abdomen/GI: Soft, non-tender, no distension. Skin: Warm, dry with normal turgor. Normal color with no rashes, no lesions, and no evidence of cellulitis. MS/ Extremity: Pulses equal, no cyanosis. Neurovascular intact. Full, normal range of motion. Neuro: Awake and alert, GCS 15, oriented to person, place, time, and situation. Motor strength 5/5 in all extremities. Sensory grossly intact. Vital Signs: 19:20 BP 172 / 103; Pulse 64; Resp 18; Temp 97.6; Pulse Ox 100% on R/A; Weight 78.02 kg; iw Height 5 ft. 5 in. ; Pain 5/10; 23:30 BP 176 / 124; Pulse 60; Resp 18; Pulse Ox 100% on R/A; kj2 07/16 00:03 BP 159 / 95; Pulse 67; kj2 01:15 BP 182 / 109; Pulse 80; Resp 17 S; Temp 97.9(T); Pulse Ox 99% on R/A; ha1 01:57 BP 145 / 87; Pulse 84; Resp 18; Temp 97.8(O); Pulse Ox 98% on R/A; ha1 03:00 BP 151 / 98; Pulse 94; Resp 16; Pulse Ox 97% ; jj7 04:00 BP 135 / 100; Pulse 87; Resp 17; Pulse Ox 98% ; jj7 04:30 BP 120 / 86; Pulse 89; Resp 16; Pulse Ox 97% ; jj7 07/15 19:20 Body Mass Index 28.62 (78.02 kg, 165.1 cm) 07/15 19:20 Pain Scale: Adult NIH Stroke Scale Scores: 01:25 NIHSS Score: 0 sb4 MDM: 07/15 19:20 Medical Screening Exam initiated sb4 07/16 01:23 Data reviewed: vital signs, nurses notes, lab test result(s), EKG, radiologic studies, sb4 I have discussed the patient's presentation/case with the attending Emergency Department Physician;. Counseling: I had a detailed discussion with the patient and/or guardian regarding the historical points, exam findings, and any diagnostic results supporting the discharge/admit diagnosis, lab results, radiology results, the need to transfer to another facility, for higher level of care, [facility] does not immediately have the required specialist. 04:07 ED course: CLINICAL INDICATION: htn;Confused. COMPARISON: none available. TECHNIQUE: CT sp4 of the head was obtained without contrast. Reformats: coronal and sagittal. This exam was performed according to our department optimization program which includes automated exposure control, adjustment of the mA and/or kv according to patient size and/or use of iterative reconstruction technique. FINDINGS: Head: Parenchyma: no acute intraparenchymal hemorrhage. No midline shift. The raymond-white interface is preserved. Extra-axial spaces: Subtle hyperdense thickening of the anterior interhemispheric falx. Ventricles: normal in size and configuration. Orbits/sinuses: Mild mucosal thickening and fluid in maxillary and sphenoid sinuses. The visualized orbits are unremarkable. Bones/scalp: no acute skull fracture identified. The scalp appears unremarkable. IMPRESSION: 1. Subtle hyperdense thickening of the anterior interhemispheric falx, suspicious for a small amount of subdural blood versus non hemorrhagic thickening. Recommend MRI with gradient imaging to evaluate blood products versus short-term follow-up CT. 2. Mild mucosal thickening and fluid in maxillary and sphenoid sinuses. Results called to and acknowledged by the physician at 1:13 AM PLY SPLICER . ED course: CLINICAL HISTORY: Dissection. COMPARISON: CTAbdomen Pelvis 06/25/2024. TECHNIQUE: CT CHESTABDOMEN PELVIS ANGIOGRAPHYWITH IV CONTRAST on 07/15/2024 10:38 PM PLY SPLICER. MIPS reconstructions were generated. This exam was performed according to our departmental dose-optimization program, which includes automated exposure control, adjustment of the mA and/or kV according to patient size and/or use of iterative reconstruction technique. FINDINGS: Vascular: Thoracic aorta is normal in course and caliber without aneurysm or dissection. Pulmonary arteries are adequately opacified without acute or chronic filling defects. Abdominal aorta is normal in course and caliber without aneurysm. Pelvic arteries are patent without aneurysm or occlusion. Chest: The heart is normal in size. There is no pericardial effusion. Intrathoracic lymph nodes are not enlarged. There is no pleural effusion, pleural thickening or pneumothorax. Central airways are patent. Lungs are clear with no consolidation, mass or interstitial lung disease. Abdomen: The liver is normal in appearance. There is no biliary dilatation. Gallbladder is relatively decompressed. The pancreas and spleen are normal in appearance. The adrenal glands and kidneys are unremarkable. There is no free air. There is no retroperitoneal adenopathy. Pelvis: There is no bowel obstruction. Urinary bladder is unremarkable. There is no free fluid. Uterus is normal in size. Appendix is absent. Skeleton: There are no acute osseous findings. No suspicious bony lesions. IMPRESSION: No aortic dissection or aneurysm. No pulmonary embolus. No definite acute process. . 07/15 19:33 Order name: Basic Metabolic Panel; Complete Time: 20:24 iw 07/15 19:33 Order name: CBC with Diff; Complete Time: 19:55 iw 07/15 19:33 Order name: Troponin HS; Complete Time: 20:24 iw 07/15 22:05 Order name: Troponin High Sensitivity; Complete Time: 00:32 sb4 07/15 23:00 Order name: UDS; Complete Time: 00:05 sb4 07/15 19:33 Order name: XRAY Chest (1 view); Complete Time: 21:01 iw 07/15 22:38 Order name: Head Brain Wo Cont CT; Complete Time: 03:16 sb4 07/15 22:38 Order name: CT Aorta for Dissection; Complete Time: 03:16 sb4 07/15 19:33 Order name: Cardiac monitoring; Complete Time: 22:33 iw 07/15 19:33 Order name: EKG - Nurse/Tech; Complete Time: 21:01 iw 07/15 19:33 Order name: IV Saline Lock; Complete Time: 21:01 iw 07/15 19:33 Order name: Labs collected and sent; Complete Time: 21:01 iw 07/15 19:33 Order name: O2 Per Protocol; Complete Time: 22:33 iw 07/15 19:33 Order name: O2 Sat Monitoring; Complete Time: 22:33 iw EC/13 20:05 Rate is 63 beats/min. Rhythm is regular, Normal Sinus Rhythm. [place] interval is normal at sb4 168 msec. QRS interval is normal at 88 msec. QT interval is normal at 396 msec. No Q waves. T waves are Normal. No ST changes noted. Clinical impression: Normal ECG. Interpreted by me. Reviewed by me. Administered Medications: 23:36 Drug: hydrALAZINE IVP 10 mg IVP once Route: IVP; Site: right antecubital; 07/16 00:03 Follow up: Response: No adverse reaction kj2 01:46 Drug: hydrALAZINE IVP 10 mg IVP once Route: IVP; Site: right antecubital; ha1 01:59 Follow up: Response: No adverse reaction; Blood pressure is lowered ha1 04:25 Drug: metoCLOPramide IVP 10 mg IVP once; over 1 to 2 minutes Route: IVP; Site: right 7 antecubital; 05:00 Follow up: Response: Marked relief of symptoms; Pain is decreased jj7 04:26 Drug: diphenhydrAMINE IVP 25 mg IVP once Route: IVP; Site: right antecubital; jj7 05:00 Follow up: Response: Marked relief of symptoms; Pain is decreased jj7 04:26 Drug: HYDROcodone-acetaminophen PO 5 mg-325 mg 2 tabs PO once Route: PO; j7 05:00 Follow up: Response: Marked relief of symptoms; Pain is decreased jj7 04:26 Drug: Keppra IV 1000 mg IV at bolus once Route: IV; Rate: bolus; Site: right j7 antecubital; 04:50 Follow up: IV Status: Completed infusion jj7 Disposition: 04:09 Co-signature as Attending Physician, Rj Núñez MD I agree with the assessment sp4 and plan of care. I reviewed the patient's care provided by Advanced Practice Provider \\T\\ agree w/ the diagnosis \\T\\ care plan. I personally saw the pt \\T\\ performed a substantive portion of the visit, incldng all aspects of the (History/Exam/Medical Decision Making). 04:10 Chart complete. sp4 Disposition Summary: 07/16/24 01:23 Transfer Ordered Notes: Transfer Location: [facility] sb4 Reason: Higher level of care sb4 Condition: Fair sb4 Problem: new sb4 Symptoms: are unchanged sb4 Accepting Physician: neuro(07/16/24 05:23) jj7 Diagnosis - Nontraumatic acute subdural hemorrhage sb4 - Essential (primary) hypertension sp4 - Acute hypertensive urgency, subdural falx hematoma sp4 Forms: - Medication Reconciliation Form sb4 - SBAR form sb4 NIH Stroke Scale - NIH Stroke Score Date: 07/16/2024 Time: Total Score = 0 10. Dysarthria (speech clarity - read or repeat words) - 0(Normal) 11. Extinction and Inattention (visual/tactile/auditory/spatial/personal) - 0(No abnormality) 1a. Level of Consciousness (LOC) - 0(Alert) 1b. Level of Consciousness (LOC) (Month \\T\\ Age) - 0(Both) 1c. LOC Commands (Open \\T\\ Closes Eyes/Police Officer Booking) - 0(Both) 2. Best Gaze (Lateral Gaze Paresis) - 0(Normal) 3. Visual Field Loss - 0(No visual loss) 4. Facial Palsy - 0(Normal) 5a. Left Arm: Motor (10-second hold) - 0(No drift) 5b. Right Arm: Motor (10-second hold) - 0(No drift) 6a. Left Leg: Motor (5-second hold - always test supine) - 0(No drift) 6b. Right Leg: Motor (5-second hold - always test supine) - 0(No drift) 7. Limb Ataxia (finger/nose \\T\\ heel/hopper - test with eyes open) - 0(Absent) 8. Sensory Loss (pinprick arms/legs/face) - 0(Normal) 9. Best Language: Aphasia (description/naming/reading) - 0(No aphasia) Initials: sb4 Signatures: Dispatcher [employer] EDFatimah Gutierrez RN RN iw Maddie Miller RN RN ha1 Fidencio Santiago RN RN jj7 Leslee De La Fuente PA-Wyatt PA-Wyatt sb4 Rj Núñez MD MD sp4 Margarita Mayes RN RN kj2 Corrections: (The following items were deleted from the chart) 07/15 19:34 19:34 BASIC METABOLIC PANEL+C.LAB.BRZ ordered. EDMS EDMS 19:34 19:34 CBC+H.LAB.BRZ ordered. EDMS EDMS 19:34 19:34 Troponin High Sensitivity+C.LAB.BRZ ordered. EDMS EDMS 19:34 19:34 Chest Single View+RAD.RAD.BRZ ordered. EDMS EDMS 07/16 01:26 07/15 23:19 Radiologist reports: negative sb4 sb4 07/16 04:10 01:23 neuro sb4 sp4 05:23 04:10 neuro sp4 jj7
[2024-07-16] MEDS ORDERED: HYDRALAZINE HCL 20 MG/ML VIAL ONE (01:40)
[2024-07-16] MEDS ORDERED: HYDROCODONE/APAP 5/325 MG TAB ONE (04:02)
[2024-07-16] MEDS ORDERED: METOCLOPRAMIDE 10 MG/2mL INJ ONE (04:02)
[2024-07-16] MEDS ORDERED: DIPHENHYDRAMINE 50 MG/ML VIAL ONE (04:02)
[2024-07-16] MEDS ORDERED: NA CHLORIDE 0.9% 100 ML ONE (04:03)
[2024-07-16] MEDS ORDERED: LEVETIRACETAM 500 MG/5 ML VIAL IV ONE (04:03)
[2024-07-16 05:34] VITALS: TEMP 97.8
[2024-07-16 05:38] VITALS: BP 120/86; O2SAT 97
== END 2024-07-16 05:23 | disposition short-term general hospital (02) ==
LOC: ER 19:02
DX: I62.01 Nontraumatic acute subdural hemorrhage (principal); I16.0 Hypertensive urgency; I10 Essential (primary) hypertension; R29.700 NIHSS score 0
CPT/HCPCS: 96365; 93005; 85025; 80048; 36415; 84484 ×2; 80307; 70450; 71275; 74175; 71045; 96375; 99285; Q9967; J1953; J0360 ×2; J2765; J1200

== ENCOUNTER 2025-03-08 17:07 | Inpatient (IN) | payer OTHER ==
[2025-03-08] MEDS ORDERED: MORPHINE 4 MG/ML SYR ONE ×2 (18:34→19:53)
[2025-03-08] MEDS ORDERED: NA CHLORIDE 0.9% 1,000 ML ONE (18:35)
[2025-03-08] MEDS ORDERED: ONDANSETRON 4 MG/2 ML VIAL ONE ×2 (18:35→19:53)
[2025-03-08 18:41] LABS: Absolute Lymphocytes (CBC) 1.7 K/uL (0.7-4.9); Hematocrit 42.2 % (36.0-45.0); Hemoglobin 14.5 g/dL (12.0-15.0); MCH 29.9 pg (27.0-35.0); MCHC 34.3 g/dL (32.0-36.0); MCV 87.2 fL (80-100); MPV 7.2 fL (7.6-11.3); Nucleated RBC Absolute Count 0.0 (0-0); Nucleated Red Blood Cells % 0.3 % (0-0); RBC Red Blood Cell Count 4.84 M/uL (3.86-4.86); White Blood Count 5.80 thou/uL (4.3-10.9)
[2025-03-08 18:55] LABS: ALT/SGPT 142.0 U/L (13-56); AST/SGOT 93.0 U/L (15-37); Albumin 3.9 g/dL (3.4-5.0); Albumin/Globulin Ratio 0.8 (1.1-1.8); Alkaline Phosphatase 65.0 U/L (45-117); Anion Gap 9.5 mEq/L (5.0-15.0); BUN Blood Urea Nitrogen 14.0 mg/dL (7-18); Globulin 4.6 g/dL (2.3-3.5); Glucose Level 83.0 mg/dL (74-106); Lipase 20.0 U/L (13-75); Potassium 3.5 mEq/L (3.5-5.1)
--- NOTE | 2025-03-08 18:57 | RAD REPORT ---
Abdomen Exam Limited: 03/08/2025 6:43 PM CLINICAL HISTORY: ABD PAIN STUDY: Limited right upper quadrant ultrasound of abdomen. COMPARISON: Same-day CT FINDINGS: Liver: Limited evaluation. Bile ducts: No intrahepatic or extrahepatic biliary ductal dilatation. Common bile duct measures 5 mm. Gallbladder: Mildly distended gallbladder. Small small gallbladder polyps. Largest measures 3 mm. No follow-up required. No gallbladder wall thickening, pericholecystic fluid, or sonographic Alejandre sign. IMPRESSION: Negative for cholelithiasis or acute cholecystitis. Small gallbladder polyps. No follow-up required.
--- NOTE | 2025-03-08 19:02 | RAD REPORT ---
EXAMINATION: Abdomen Pelvis W Contrast CLINICAL INDICATION: Female, 55 years old.ABD PAIN TECHNIQUE: CT abdomen and pelvis was performed, after the administration of IV contrast, as per [facility] protocol. Axial, sagittal and coronal reconstructions were obtained. One or more of the following dose reduction techniques were used: Automated exposure control, adjustment of the mA and/o r kV according to patient size, and/or iterative reconstruction. Unless otherwise specified, incidental findings do not require dedicated imaging follow-up. [id number]. COMPARISON: 06/13/2024 FINDINGS: LOWER CHEST: No acute process identified. Mild cardiomegaly. Mild circumferential thickening of the d istal esophagus which could reflect esophagitis. UPPER GI: No significant abnormality. LIVER: Hepatic steatosis. Benign appearing and/or stable lesions are identified. No suspicious mass. GALLBLADDER/BILE DUCTS: No biliary ductal dilatation.? PANCREAS: No mass, ductal dilation, or emily-pancreatic fluid. SPLEEN: Mild splenomegaly. ADRENALS: No adrenal masses. KIDNEYS AND URETERS: No hydronephrosis. Low density and/or too small to characterize renal lesions wh ich are statistically benign. No renal calculi. No ureteral calculi. ABDOMINAL AORTA AND OTHER VESSELS: Normal caliber aorta and IVC. PERITONEUM: No abnormal free fluid. No free air. LYMPH NODES: No pathologic lymphadenopathy. ABDOMINAL WALL: Unremarkable SMALL BOWEL/COLON: Small bowel has normal course and caliber. No colonic wall thickening or pericolon ic inflammatory changes. Appendix absent. URINARY BLADDER: Underdistended but grossly unremarkable. REPRODUCTIVE ORGANS: No pathologic process. MUSCULOSKELETAL: Multilevel degenerative changes in the spine. No acute fracture. ADDITIONAL FINDINGS: None. IMPRESSION: No acute findings within the abdomen or pelvis. Incidental findings as noted above.
--- NOTE | 2025-03-08 19:11 | EDPHYS ---
Physician Documentation [facility] Name: Shivani Washington Age: 55 yrs Sex: Female : 1970 Arrival Date: 03/08/2025 Time: 17:07 Bed 16 Private MD: ED Physician Rj Núñez HPI: 03/08 18:30 This 55 yrs old Female presents to ER via Ambulatory with complaints of Abdominal Pain. sp3 18:30 55-year-old female with history of hypertension, liver cysts, status post appendectomy, sp3 nontraumatic subdural in July 2024, presents to the ER for abdominal pain right upper quadrant for the last 1 to 2 days worsening. Patient states she is nauseated but denies vomiting, diarrhea, left-sided pain, back pain, dysuria, urinary frequency, gross visualized hematuria, or any other signs or symptoms on ROS at this time. She states she might of had a kidney stone a long time ago.. Historical: - Allergies: 17:19 No Known Allergies; me1 - PMHx: 17:19 Hypertensive disorder; me1 - PSHx: 17:19 Appendectomy; me1 - Immunization history:: Adult Immunizations up to date. - Infectious Disease History:: Denies. - Social history:: Smoking status: Patient denies any tobacco usage or history of. ROS: 18:31 Constitutional: Negative for fever, chills, and weight loss, Eyes: Negative for injury, sp3 pain, redness, and discharge, ENT: Negative for injury, pain, and discharge, Neck: Negative for injury, pain, and swelling, Cardiovascular: Negative for chest pain, palpitations, and edema, Respiratory: Negative for shortness of breath, cough, wheezing, and pleuritic chest pain, MS/Extremity: Negative for injury and deformity, Skin: Negative for injury, rash, and discoloration, Neuro: Negative for headache, weakness, numbness, tingling, and seizure, Psych: Negative for depression, anxiety, suicide ideation, homicidal ideation, and hallucinations, Allergy/Immunology: Negative for hives, rash, and allergies, Endocrine: Negative for neck swelling, polydipsia, polyuria, polyphagia, and marked weight changes, 18:31 All other systems are negative, Exam: 18:33 Constitutional: This is a well developed, well nourished patient who is awake, alert, sp3 and in no acute distress. Head/Face: Normocephalic, atraumatic. Eyes: Pupils equal round and reactive to light, extra-ocular motions intact. Lids and lashes normal. Conjunctiva and sclera are non-icteric and not injected. Cornea within normal limits. Periorbital areas with no swelling, redness, or edema. Neck: Trachea midline, no thyromegaly or masses palpated, and no cervical lymphadenopathy. Supple, full range of motion without nuchal rigidity, or vertebral point tenderness. No Meningismus. Chest/axilla: Normal chest wall appearance and motion. Nontender with no deformity. No lesions are appreciated. Cardiovascular: Regular rate and rhythm with a normal S1 and S2. No gallops, murmurs, or rubs. Normal PMI, no JVD. No pulse deficits. Respiratory: Lungs have equal breath sounds bilaterally, clear to auscultation and percussion. No rales, rhonchi or wheezes noted. No increased work of breathing, no retractions or nasal flaring. Back: No spinal tenderness. No costovertebral tenderness. Full range of motion. Skin: Warm, dry with normal turgor. Normal color with no rashes, no lesions, and no evidence of cellulitis. MS/ Extremity: Pulses equal, no cyanosis. Neurovascular intact. Full, normal range of motion. Neuro: Awake and alert, GCS 15, oriented to person, place, time, and situation. Cranial nerves II-XII grossly intact. Motor strength 5/5 in all extremities. Sensory grossly intact. Cerebellar exam normal. Normal gait. Psych: Awake, alert, with orientation to person, place and time. Behavior, mood, and affect are within normal limits. 18:33 Abdomen/GI: Patient with right upper quadrant abdominal pain to palpation. No rebound or guarding noted., Vital Signs: 17:16 BP 148 / 99; Pulse 73; Resp 18; Temp 98.6; Pulse Ox 100% ; Weight 79.38 kg; Height 5 me1 ft. 5 in. ; Pain 10/10; 19:00 BP 136 / 105; Pulse 68; Resp 18; Pulse Ox 99% ; Pain 8/10; rg5 20:00 BP 160 / 92; Pulse 85; Resp 19; Pulse Ox 99% on R/A; Pain 9/10; rg5 21:00 BP 135 / 102; Pulse 69; Resp 18; Pulse Ox 100% on R/A; Pain 6/10; rg5 22:05 BP 133 / 84; Pulse 72; Resp 18; Pulse Ox 95% on R/A; Pain 0/10; rg5 17:16 Body Mass Index 29.12 (79.38 kg, 165.1 cm) me1 17:16 Pain Scale: Adult me1 19:00 Pain Scale: Adult rg5 20:00 Pain Scale: Adult rg5 21:00 Pain Scale: Adult rg5 22:05 Pain Scale: Adult rg5 MDM: 17:24 Medical Screening Exam initiated sp3 18:33 Data reviewed: vital signs, nurses notes, lab test result(s), radiologic studies. ED sp3 course: 55-year-old female with PMH above now with right upper quadrant abdominal pain. Differential diagnosis includes cholecystitis, cholelithiasis, ureterolithiasis/kidney stone spectrum, UTI/pyelonephritis spectrum, musculoskeletal pain, colitis, among others. Workup included CT scan of the abdomen pelvis with IV contrast, ultrasound right upper quadrant and full routine labs including lipase. UA also pending. Pain and nausea control. Patient will be signed out to nighttime physician for reevaluation and final disposition.. 18:35 Transition of care: After a detail discussion of the patient's case, care is sp3 transferred to Rj Núñez MD. 19:08 ED course: Workup demonstrates no significant findings. T. bili noted to be 2.3. No sp3 gallstones noted. Patient's pain is resolved and she has normal vital signs. I discussed all of this with her and she is okay being discharged. We will have her follow-up with Dr. Lucio at the GI office and her PCP.. 03/08 17:23 Order name: CBC with Diff; Complete Time: 19:04 sp3 03/08 17:23 Order name: CMP; Complete Time: 19:04 sp3 03/08 17:23 Order name: Lipase; Complete Time: 19:04 sp3 03/08 17:23 Order name: UA Rfx Zack Cult if indicated; Complete Time: 19:47 sp3 03/08 17:23 Order name: Lactate w/ 2H reflex if indic.; Complete Time: 19:04 sp3 03/08 20:23 Order name: Hepatitis Panel sp4 03/08 20:59 Order name: Ptt, Activated sp4 03/08 20:59 Order name: PT-INR sp4 03/08 20:59 Order name: COVID-19 Ag + Flu A+B Ag sp4 03/08 21:00 Order name: Boyle Screen Profile sp4 03/08 21:35 Order name: CBC with Automated Diff EDMS 03/08 21:35 Order name: CBC with Automated Diff EDMS 03/08 21:35 Order name: Comprehensive Metabolic Panel EDMS 03/08 21:35 Order name: Comprehensive Metabolic Panel EDMS 03/08 17:23 Order name: CT Abd/Pelvis - IV Contrast Only; Complete Time: 19:04 sp3 03/08 17:23 Order name: US Abdomen Limited; Complete Time: 19:04 sp3 03/08 21:39 Order name: Cholangiogram EDMS 03/08 21:39 Order name: Hepatobiliary System W/ Ph EDMS 03/08 21:35 Order name: CONS Physician Consult EDMS 03/08 21:36 Order name: CONS Physician Consult EDMS 03/08 17:23 Order name: IV Saline Lock; Complete Time: 18:36 sp3 03/08 17:23 Order name: Labs collected and sent; Complete Time: 18:36 sp3 03/08 20:23 Order name: NPO; Complete Time: 20:26 4 Administered Medications: 19:00 Drug: Ondansetron IVP 4 mg IVP once; over 2 minutes Route: IVP; Site: right antecubital;rg5 20:06 Follow up: Response: No adverse reaction rg5 19:00 Drug: morphine IVP or IV 4 mg IVP once over 4 mins Route: IVP; Infused Over: 4 mins; rg5 Site: right antecubital; 19:45 Follow up: Response: No adverse reaction; Pain is decreased rg5 19:00 Drug: NS 0.9% IV 1000 ml IV at 1 bolus Per protocol; to be given as a bolus over 60 rg5 minutes Route: IV; Rate: 1 bolus; Site: right antecubital; 20:58 Follow up: IV Status: Completed infusion; IV Intake: 2000ml rg5 19:59 Drug: morphine IVP or IV 4 mg IVP once over 4 mins Route: IVP; Infused Over: 4 mins; rg5 Site: right antecubital; 20:59 Follow up: Response: No adverse reaction; Pain is decreased rg5 19:59 Drug: Ondansetron IVP 4 mg IVP once; over 2 minutes Route: IVP; Site: right antecubital;rg5 20:00 Follow up: Response: No adverse reaction rg5 19:59 Drug: Dicyclomine IM 20 mg IM once Route: IM; Site: right deltoid; rg5 20:59 Follow up: Response: No adverse reaction rg5 20:57 Drug: Ketorolac IVP 30 mg IVP once Route: IVP; Site: right antecubital; rg5 22:03 Follow up: Response: No adverse reaction; Pain is decreased rg5 20:58 Drug: Ativan IVP 1 mg IVP once Route: IVP; Site: right antecubital; rg5 22:04 Follow up: Response: No adverse reaction rg5 20:58 Drug: NS 0.9% IV 1000 ml IV at 1000 ml once; to be given as a bolus over 60 minutes rg5 Route: IV; Rate: 1000 ml; Site: right antecubital; 22:03 Follow up: IV Status: Completed infusion; IV Intake: 1000ml rg5 22:04 Drug: NS 0.9% IV 1000 ml IV at 125 ml/hr once; to be given at Route: IV; Rate: 125 rg5 ml/hr; Site: right antecubital; Disposition Summary: 03/08/25 20:23 Hospitalization Ordered Notes: Hospitalization Status: Inpatient Admission sp4 Provider: Kobi Zuluaga Location: Telemetry/[facility] (Inpatient)(03/08/25 20:23) sp4 Condition: Stable(03/08/25 20:23) sp4 Problem: new sp4 Symptoms: have improved sp4 Bed/Room Type: Standard sp4 Room Assignment: 217(03/08/25 21:42) kmf Diagnosis - Acute hyperbilirubinemia, acute transaminitis, intractable right upper quadrant sp4 abdominal pain Forms: - Medication Reconciliation Form sp4 - SBAR form sp4 - Leadership Thank You Letter sp4 Signatures: Dispatcher [employer] Chica Oliva MD MD sp3 Rj Núñez MD MD sp4 Fay Gonzalez RN RN ok1 Mallory Alvarez f John Sanchez RN RN rg5 Corrections: (The following items were deleted from the chart) 17:24 17:24 CBC+H.LAB.BRZ ordered. EDMS EDMS 17:24 17:24 COMPREHENSIVE METABOLIC PANEL+C.LAB.BRZ ordered. EDMS EDMS 17:24 17:24 LIPASE+C.LAB.BRZ ordered. EDMS EDMS 17:24 17:24 UA Rfx Zack Cult if indicated+U.LAB.BRZ ordered. EDMS EDMS 17:24 17:24 LACTATE+C.LAB.BRZ ordered. EDMS EDMS 20:11 19:11 Home sp3 sp4 20:11 19:11 Stable sp3 sp4 20:11 19:11 Abdominal pain, mild hyperbilirubinemia sp3 sp4 21:42 20:23 sp4 kmf
--- NOTE | 2025-03-08 19:11 | ER ---
Nurse's Notes [facility] Name: Shivani Washington Age: 55 yrs Sex: Female : 1970 Arrival Date: 03/08/2025 Time: 17:07 Bed 16 Private MD: Diagnosis: Acute hyperbilirubinemia, acute transaminitis, intractable right upper quadrant abdominal pain Presentation: 03/08 17:16 Chief complaint: Patient states: RUQ pain that radiates to right upper back. Started me1 about a week ago but is much worse today. .03/11, sharp, stabbing. Denies nausea but reports she hasnt had an appetite. Coronavirus screen: Vaccine status: Patient reports being unvaccinated. Ebola Screen: No symptoms or risks identified at this time. Initial Sepsis Screen: Does the patient meet any 2 criteria? Does the patient have a suspected source of infection? No. Patient's initial sepsis screen is negative. Risk Assessment: Do you want to hurt yourself or someone else? Patient reports no desire to harm self or others. Onset of symptoms is unknown. 17:16 Method Of Arrival: Ambulatory ia1 17:16 Acuity: CHAITANYA 3 me1 Historical: - Allergies: 17:19 No Known Allergies; me1 - PMHx: 17:19 Hypertensive disorder; me1 - PSHx: 17:19 Appendectomy; me1 - Immunization history:: Adult Immunizations up to date. - Infectious Disease History:: Denies. - Social history:: Smoking status: Patient denies any tobacco usage or history of. Screenin:00 [facility] ED Fall Risk Assessment (Adult) History of falling in the last 3 months, rg5 including since admission No falls in past 3 months (0 pts) Confusion or Disorientation No (0 pts) Intoxicated or Sedated No (0 pts) Impaired Gait No (0 pts) Mobility Assist Device Used No (0 pt) Altered Elimination No (0 pt) Score/Fall Risk Level 0 - 2 = Low Risk Oriented to surroundings, Maintained a safe environment, Provided non-skid footwear. Abuse screen: Denies threats or abuse. Nutritional screening: No deficits noted. Tuberculosis screening: No symptoms or risk factors identified. Assessment: 19:00 General: Appears uncomfortable, Behavior is calm, cooperative, appropriate for age. rg5 Pain: Complains of pain in right upper quadrant Pain currently is 9 out of 10 on a pain scale. Quality of pain is described as aching. Neuro: Level of Consciousness is awake, alert, obeys commands, Oriented to person, place, time. Cardiovascular: Denies chest pain, Patient's skin is warm and dry. Respiratory: Airway is patent Respiratory effort is even, unlabored. GI: Bowel sounds present in left lower quadrant Abd is soft and non tender. : No signs and/or symptoms were reported regarding the genitourinary system. EENT: No signs and/or symptoms were reported regarding the EENT system. Derm: Skin is intact, Skin is normal. Musculoskeletal: Circulation, motion, and sensation intact. Range of motion: intact in all extremities. 20:02 Reassessment: No changes from previously documented assessment. Patient and/or family rg5 updated on plan of care and expected duration. Pain level reassessed. Patient is alert, oriented x 3, equal unlabored respirations, skin warm/dry/pink. Pain: Complains of pain in right upper quadrant Quality of pain is described as squeezing. 21:00 Reassessment: Patient and/or family updated on plan of care and expected duration. Pain rg5 level reassessed. Patient is alert, oriented x 3, equal unlabored respirations, skin warm/dry/pink. 22:05 Reassessment: Patient and/or family updated on plan of care and expected duration. Pain rg5 level reassessed. Patient is alert, oriented x 3, equal unlabored respirations, skin warm/dry/pink. Patient states symptoms have improved. Vital Signs: 17:16 BP 148 / 99; Pulse 73; Resp 18; Temp 98.6; Pulse Ox 100% ; Weight 79.38 kg; Height 5 me1 ft. 5 in. ; Pain 10/10; 19:00 BP 136 / 105; Pulse 68; Resp 18; Pulse Ox 99% ; Pain 8/10; rg5 20:00 BP 160 / 92; Pulse 85; Resp 19; Pulse Ox 99% on R/A; Pain 9/10; rg5 21:00 BP 135 / 102; Pulse 69; Resp 18; Pulse Ox 100% on R/A; Pain 6/10; rg5 22:05 BP 133 / 84; Pulse 72; Resp 18; Pulse Ox 95% on R/A; Pain 0/10; rg5 17:16 Body Mass Index 29.12 (79.38 kg, 165.1 cm) me1 17:16 Pain Scale: Adult me1 19:00 Pain Scale: Adult rg5 20:00 Pain Scale: Adult rg5 21:00 Pain Scale: Adult rg5 22:05 Pain Scale: Adult rg5 ED Course: 17:09 Patient arrived in ED. mr 17:10 Chica Kirkpatrick MD is Attending Physician. sp3 17:19 Triage completed. me1 17:19 Arm band placed on Patient placed in an exam room. me1 18:35 Initial lab(s) drawn, by ia, sent to lab. Inserted saline lock: 20 gauge in right rk3 antecubital area, using aseptic technique. Blood collected. Flushed with 10 mL NS. 18:45 CT Abd/Pelvis - IV Contrast Only In Process Unspecified. EDMS 18:46 US Abdomen Limited In Process Unspecified. EDMS 19:00 Patient has correct armband on for positive identification. Bed in low position. Call rg5 light in reach. Side rails up X 1. Door closed. Noise minimized. 19:00 No provider procedures requiring assistance completed. rg5 19:07 John Sanchez, LEYDI is Primary Nurse. rg5 19:10 Umang Olguin MD is Referral Physician. sp3 19:47 Attending Physician role handed off by Chica Kirkpatrick MD sp4 19:47 Rj Núñez MD is Attending Physician. sp4 20:21 Kobi Zuluaga MD is Hospitalizing Provider. sp4 22:07 Patient admitted, IV remains in place. intact, No redness/swelling at site. rg5 Administered Medications: 19:00 Drug: Ondansetron IVP 4 mg IVP once; over 2 minutes Route: IVP; Site: right antecubital;rg5 20:06 Follow up: Response: No adverse reaction rg5 19:00 Drug: morphine IVP or IV 4 mg IVP once over 4 mins Route: IVP; Infused Over: 4 mins; rg5 Site: right antecubital; 19:45 Follow up: Response: No adverse reaction; Pain is decreased rg5 19:00 Drug: NS 0.9% IV 1000 ml IV at 1 bolus Per protocol; to be given as a bolus over 60 rg5 minutes Route: IV; Rate: 1 bolus; Site: right antecubital; 20:58 Follow up: IV Status: Completed infusion; IV Intake: 2000ml rg5 19:59 Drug: morphine IVP or IV 4 mg IVP once over 4 mins Route: IVP; Infused Over: 4 mins; rg5 Site: right antecubital; 20:59 Follow up: Response: No adverse reaction; Pain is decreased rg5 19:59 Drug: Ondansetron IVP 4 mg IVP once; over 2 minutes Route: IVP; Site: right antecubital;rg5 20:00 Follow up: Response: No adverse reaction rg5 19:59 Drug: Dicyclomine IM 20 mg IM once Route: IM; Site: right deltoid; rg5 20:59 Follow up: Response: No adverse reaction rg5 20:57 Drug: Ketorolac IVP 30 mg IVP once Route: IVP; Site: right antecubital; rg5 22:03 Follow up: Response: No adverse reaction; Pain is decreased rg5 20:58 Drug: Ativan IVP 1 mg IVP once Route: IVP; Site: right antecubital; rg5 22:04 Follow up: Response: No adverse reaction rg5 20:58 Drug: NS 0.9% IV 1000 ml IV at 1000 ml once; to be given as a bolus over 60 minutes rg5 Route: IV; Rate: 1000 ml; Site: right antecubital; 22:03 Follow up: IV Status: Completed infusion; IV Intake: 1000ml rg5 22:04 Drug: NS 0.9% IV 1000 ml IV at 125 ml/hr once; to be given at Route: IV; Rate: 125 rg5 ml/hr; Site: right antecubital; Medication: 19:00 VIS not applicable for this client. rg5 Intake: 20:58 IV: 2000ml; Total: 2000ml. rg5 22:03 IV: 1000ml; Total: 3000ml. rg5 Outcome: 19:11 Discharge ordered by . sp3 20:23 Decision to Hospitalize by Provider. sp4 22:07 Admitted to Med/surg accompanied by tech, via wheelchair, rg5 22:07 Condition: stable 22:07 Instructed on the need for admit, 23:22 Patient left the ED. vk Signatures: Dispatcher [employer] EDParvin Perkins, Reg Reg Chica Viera, MD MD sp3 Rj Núñez MD MD sp4 Fay Gonzalez, RN RN me1 Ghada Stanton Rommel, RN RN rg5 Walter Solis rk3 Corrections: (The following items were deleted from the chart) 17:20 17:16 Pulse 73bpm; Resp 18bpm; Pulse Ox 100%; Temp 98.6F; 79.38 kg; Height 5 ft. 5 in.; me1 BMI: 29.1; Pain 10, Adult; me1
[2025-03-08 19:37] LABS: Sqamous Epithelial 20-50 /HPF (None Seen); Urine Culture Reflex Order NOT NEEDED; Urine Microscopic Reflex YN ORDER UMIC
[2025-03-08] MEDS ORDERED: DICYCLOMINE HCL 20 MG/2 ML AMP IM ONE (19:53)
[2025-03-08] MEDS ORDERED: LORazepam 2 MG/ML VIAL ONE (20:52)
[2025-03-08] MEDS ORDERED: KETOROLAC 30 MG/ML INJ ONE (20:53)
[2025-03-08] MEDS ORDERED: NA CHLORIDE 0.9% 2,000 ML ONE (20:53)
--- NOTE | 2025-03-08 21:26 | P.HP ---
Certification for Inpatient Patient admitted to: Inpatient With expected LOS: >2 Midnights Practitioner: I am a practitioner with admitting privileges, knowledge of patient current condition, hospital course, and medical plan of care. Services: Services provided to patient in accordance with Admission requirements found in Title 42 Section 412.3 of the Code of Federal Regulations Patient History Date of Service: 03/08/25 Reason for admission: Abdominal pain History of Present Illness: 55 yrs old Female with past medical history of hypertension ,history of liver cysts , status post appendectomy, nontraumatic subdural in July 2024, presents to the ER for abdominal pain right upper quadrant for the last 1 to 2 days worsening. Patient states she is nauseated but denies vomiting, diarrhea, left-sided pain, back pain, dysuria, urinary frequency. Denies hematuria or any other signs or symptoms on ROS at this time. She has a history of kidney stones in the past. Patient states that the pain is sharp, radiating to the back. Intermittent 6 out of 10 in severity, Denies any fever or chills. Patient was assessed in the ER and was admitted for further management of p ossible biliary colic. Home medications list reviewed: Yes - Past Medical/Surgical History Past Medical History: Reviewed- Non-Contributory -: HTN, Past Surgical History: Reviewed- Non-Contributory - Family History Family History: Reviewed- Non-Contributory - Social History Smoking Status: Never smoker Review of Systems 10-point ROS is otherwise unremarkable Physical Examination - Vital Signs Temperature: 98.2 F Blood Pressure: 138/76 Pulse: 82 Respirations: 18 Pulse Ox (%): 94 - Physical Exam General: Alert, In no apparent distress, Oriented x3 HEENT: Atraumatic, Normocephalic Neck: Supple Respiratory: Clear to auscultation bilaterally, Normal air movement Cardiovascular: Regular rate/rhythm, Normal S1 S2 Capillary refill: <2 Seconds Gastrointestinal: Soft and benign, W/out hepatosplenomegaly, Tenderness Musculoskeletal: No clubbing Integumentary: No rashes Neurological: Normal gait, Normal strength at 5/5 x4 extr, Cranial nerves 3-12 intact, Normal affect Lymphatics: No axilla or inguinal lymphadenopathy - Studies Laboratory Data (last 24 hrs) 03/08/25 03/08/25 18:23 18:23 WBC 5.80 Hgb 14.5 Hct 42.2 Plt Count 220 Sodium 139 Potassium 3.5 BUN 14 Creatinine 0.87 Glucose 83 Total Bilirubin 2.3 H AST 93 H ALT 142 H Alkaline Phosphatase 65 Lipase 20 Assessment and Plan - Plan Biliary colic Elevated LFTs To treat of cholecystitis Pain control Started on IV antibiotic GI consult Surgical consult as well Will get an MRCP Will also order a HIDA scan Elevated LFTs Monitor LFTs and Liver cysts noted As per the patient has been stable Need follow-up with GI as outpatient Hypertension Continue home medications and titrate as needed GI/DVT prophylaxis Advanced directive full code Discharge Plan: Home Plan to discharge in: 48 Hours - Advance Directives Does patient have a Living Will: No Does patient have a Durable POA for Healthcare: No - Code Status/Comfort Care Code Status: Full Code Time Spent Managing Pts Care (In Minutes): 48
[2025-03-08] MEDS ORDERED: ACETAMINOPHEN 325 MG TABLET PO PRN (21:31)
[2025-03-08 22:13] LABS: PT Prothrombin Time 13.5 SECONDS (10-13.0); PTT, Activated Partial Thromb 29.6 SECONDS (27.2-37.4); Protime INR 1.2
[2025-03-08 22:13] LABS: Influenza A Ag Negative; Influenza B Ag Negative; SARS-CoV-2 Antigen Rapid Res Negative (Negative)
[2025-03-08 23:31] LABS: Hepatitis B surface AG Interp. Nonreactive (Nonreactive)
[2025-03-08 23:32] LABS: HBsAG Nonreactive Report Report
[2025-03-09] MEDS: NA CHLORIDE 0.9% 1,000 ML IV SCH (00:18)
[2025-03-09] MEDS: PIPER TAZO 3.375 GM in NA CHLORIDE 0.9% 100 ML IV SCH (00:20)
[2025-03-09 01:34] VITALS: BMI 29.1
[2025-03-09 07:47] LABS: Absolute Lymphocytes (CBC) 1.1 K/uL (0.7-4.9); Hematocrit 39.4 % (36.0-45.0); Hemoglobin 13.6 g/dL (12.0-15.0); MCH 30.1 pg (27.0-35.0); MCHC 34.4 g/dL (32.0-36.0); MCV 87.6 fL (80-100); MPV 7.3 fL (7.6-11.3); Nucleated RBC Absolute Count 0.0 (0-0); Nucleated Red Blood Cells % 0.3 % (0-0); RBC Red Blood Cell Count 4.50 M/uL (3.86-4.86); White Blood Count 3.70 thou/uL (4.3-10.9)
[2025-03-09 08:04] LABS: ALT/SGPT 119.0 U/L (13-56); AST/SGOT 70.0 U/L (15-37); Albumin 3.3 g/dL (3.4-5.0); Albumin/Globulin Ratio 0.9 (1.1-1.8); Alkaline Phosphatase 56.0 U/L (45-117); Anion Gap 9.5 mEq/L (5.0-15.0); BUN Blood Urea Nitrogen 10.0 mg/dL (7-18); Globulin 3.8 g/dL (2.3-3.5); Glucose Level 90.0 mg/dL (74-106); Potassium 3.5 mEq/L (3.5-5.1)
--- NOTE | 2025-03-09 09:05 | RAD REPORT ---
EXAMINATION: MR CHOLANGIOGRAM CLINICAL INDICATION: Female, 55 years old. [facility] MAIN N Biliary Colic TECHNIQUE: Multiplanar, multisequence MR imaging of the abdomen without intravenous contrast, and wit h specific attention to the biliary system. Unless otherwise specified, incidental findings do not require dedicated imaging follow-up. 3D MIP reconstruction performed. COMPARISON: 03/08/2025 FINDINGS: GALLBLADDER: Punctate filling defect along the medial wall not exceeding 3 mm may represent lobulated sludge or a small stone. Small wall diverticulum projecting anteriorly measuring 7 mm. No wall thickening, or pericholecystic fluid. BILE DUCTS: No intrahepatic biliary ductal dilatation. Common bile duct is mildly prominent measuring in caliber, without evidence of filling defect or wall mass/irregularity. Smooth tapering towards the ampulla. LIVER: Normal in size, contour, and signal without evidence of fatty infiltration or iron deposition. Stable T2 hyperintense hepatic lesions in the right and left lobes, largest posterior right lobe measuring 1.9 cm, may represent combination of cysts and hemangiomata, not well characterized. No oth er suspicious focal lesion. PANCREAS: Normal signal. No mass, ductal dilation, or emily-pancreatic fluid. SPLEEN: Normal size. No focal lesion. ADRENALS: Normal; no mass. KIDNEYS: Normal size and contour. No hydronephrosis. LYMPH NODES: No lymphadenopathy. ADDITIONAL FINDINGS: None. IMPRESSION: Mildly prominent common bile duct up to 9 mm, without evidence of choledocholithiasis or a stricture. Small stone or lobulated sludge along the medial wall of the gallbladder measuring 3 mm. Small divert iculum of the gallbladder wall. Essentially stable hepatic T2 hyperintense lesions, could represent a combination of cysts and jevon iomata, not well characterized on this exam.
[2025-03-09] MEDS: ONDANSETRON 4 MG/2 ML VIAL IV PRN (13:19)
[2025-03-09] MEDS: MORPHINE 2 MG/ML SYR IV PRN (13:19)
--- NOTE | 2025-03-09 13:20 | RAD REPORT ---
EXAMINATION: Hepatobiliary System W/ Ph CLINICAL INDICATION: Female, 55 years old. [facility] MAIN Biliary Colic TECHNIQUE: Hepatobiliary imaging was acquired over the abdomen for 60 minutes following intravenous a dministration of radiotracer. Slow intravenous administration of CCK. CCK dose: 1.6 ug Additional imaging was acquired over the abdomen for 30 minutes. Gallbladder ejection fraction was then calculat ed. RADIOPHARMACEUTICAL: 6.3 mCi Technetium 99m Mebrofenin. COMPARISON: No prior exams. FINDINGS: There is prompt accumulation of the radiopharmaceutical in the liver and excretion into the biliary d uctal system, gallbladder, and small bowel. Minimal reduction in gallbladder tracer content over time. Gallbladder ejection fraction was calculat ed at 2% (normal range >35%). Additional symptoms were not duplicated. IMPRESSION: Patent cystic duct, however without significant bladder evacuation. This may relate to functional gal lbladder abnormalities or chronic cholecystitis. Reduced gallbladder ejection fraction, 2%
[2025-03-09] MEDS: POTASSIUM CL SA 10 MEQ TAB PO ONE (15:29)
--- NOTE | 2025-03-09 17:31 | P.PN ---
Date of Service: 03/09/25 Subjective Patient doing well with no new complaints. Physical Examination - Vital Signs Reviewed - Physical Exam General: Alert, In no apparent distress, Oriented x3 Respiratory: Clear to auscultation bilaterally, Normal air movement Cardiovascular: Regular rate/rhythm, Normal S1 S2 Gastrointestinal: Soft and benign, W/out hepatosplenomegaly, Tenderness Musculoskeletal: No clubbing Integumentary: No rashes Neurological: Normal gait, Normal strength at 5/5 x4 extr, Cranial nerves 3-12 intact, Normal affect Assessment and Plan - Assessment/Plan 1. Biliary colic with biliary dyskinesia; HIDA scan with 2% ejection fraction. However MRCP did not reveal any choledocholithiasis. Patient has mildly elevated LFTs but she does have positive monotest. This can cause elevation in her LFTs. She also has a history of hepatitis C that is been untreated. This could also lead to her elevation in her liver function testing. Will repeat her labs in the morning. Continue with gentle hydration. Started on clear liquid diet and n.p.o. after midnight. Surgeon & GI have been consulted and will await further recommendations. 2. Hypertension; Continue home medications and titrate as needed GI/DVT prophylaxis Advanced directive full code Discharge Plan: Home Plan to discharge in: 48 Hours - Advance Directives Does patient have a Living Will: No Does patient have a Durable POA for Healthcare: No - Code Status/Comfort Care Code Status: Full Code Time Spent Managing Pts Care (In Minutes): 30
--- NOTE | 2025-03-09 19:13 | CON ---
Date of Consultation: 03/09/2025 Diagnosis: Acute cholecystitis. Symptomatic cholelithiasis. History Of Present Illness: This is a case of a 55-year-old patient who came to us complaining of ep igastric right upper quadrant pain radiating to the back, associated with nausea, and which started a bout 1 or 2 days prior to admission. She denies any dysuria, hematuria, hematochezia, or melena. De nies any recent traveling out of the country. Denies any family member sick at home. She has kidney stones in the past, but other than that, really not much of the pain. Past Medical History: Hypertension. Past Surgical History: Include appendectomy and also tubal ligation. Family History: Noncontributory. Social History: She does not smoke. She does not drink alcohol. Review of Systems: See above. Physical Examination: Vital Signs: Reviewed. General: The patient is awake and alert. HEENT: Pupils are equal and reactive. Anicteric. Neck: Supple. Chest: Clear. Heart: S1, S2. Abdomen: Epigastric right upper quadrant pain, better than yesterday, but it is still present. No r ebound tenderness. Breasts: Deferred. Pelvic: Deferred. Rectal: Deferred. Extremities: Good capillary refill. Laboratory Data: Blood work shows WBC count of 3.7, with hemoglobin of 13.6, potassium 3.5, bilirubi n is 2.6, alkaline phosphatase of 56. The patient has a CAT scan of the abdomen and pelvis and ultra sound showing no acute findings on the abdomen per Dr. García. The patient did have an ultrasound of th e gallbladder that shows gallbladder polyps and distended gallbladder with a common bile duct about 5 mm. Since the LFTs were elevated, an MRCP was done, and as per Dr. Mckinney shows common bile duct is mild prominent in caliber without evidence of filling defects. Small stones or sludge in the area o f the gallbladder. Also small diverticulum of the gallbladder and common bile duct about 9 mm withou t any choledocholithiasis. Then, she had a HIDA scan and the HIDA scan shows per Dr. Mckinney patent c ystic duct, however, without any significant bladder evacuation. This may be related to gallbladder abnormalities or cholecystitis, reduced gallbladder ejection fraction of 2%. Assessment: So, we have a 55-year-old patient with symptomatic cholelithiasis. The MRCP shows stone s, mild distended common bile duct, but no stones in the common bile duct, and mild increased in LFTs . She also have gallbladder polyps and also evidence of cholecystitis with biliary dyskinesia also. We discussed with her pros and cons of cholecystectomy. She preferred to have surgery done during t his admission. So, we discussed with her the benefits, alternatives, and risks of laparoscopic, poss ible open cholecystectomy, which include, but not limited to, infection, bleeding, damage to adjacent structures, anesthesia complication, choledocholithiasis, bile leak, pancreatitis, GA, and even deat h. She also understands this may not relieve any symptoms, she might need more than one surgical int ervention. She understood and she is booked for tomorrow for surgery. IRINA Voice ID: [id number] Report ID: [id number]
[2025-03-10] MEDS: HYDROCODONE/APAP 5/325 MG TAB PO PRN (01:15)
[2025-03-10] MEDS ORDERED: MORPHINE 2 MG/ML SYR ONE (03:34)
[2025-03-10 06:03] LABS: Absolute Lymphocytes (CBC) 1.2 K/uL (0.7-4.9); Hematocrit 36.0 % (36.0-45.0); Hemoglobin 12.4 g/dL (12.0-15.0); MCH 30.2 pg (27.0-35.0); MCHC 34.4 g/dL (32.0-36.0); MCV 87.7 fL (80-100); MPV 7.1 fL (7.6-11.3); Nucleated RBC Absolute Count 0.0 (0-0); Nucleated Red Blood Cells % 0.1 % (0-0); RBC Red Blood Cell Count 4.11 M/uL (3.86-4.86); White Blood Count 3.60 thou/uL (4.3-10.9)
[2025-03-10 06:11] LABS: PT Prothrombin Time 13.4 SECONDS (10-13.0); PTT, Activated Partial Thromb 29.6 SECONDS (27.2-37.4); Protime INR 1.19
[2025-03-10 06:22] LABS: ALT/SGPT 95.0 U/L (13-56); AST/SGOT 59.0 U/L (15-37); Albumin 3.0 g/dL (3.4-5.0); Albumin/Globulin Ratio 0.9 (1.1-1.8); Alkaline Phosphatase 48.0 U/L (45-117); Anion Gap 9.4 mEq/L (5.0-15.0); BUN Blood Urea Nitrogen 7.0 mg/dL (7-18); Globulin 3.5 g/dL (2.3-3.5); Glucose Level 79.0 mg/dL (74-106); Magnesium 1.7 mg/dL (1.6-2.4); Potassium 3.4 mEq/L (3.5-5.1)
[2025-03-10] MEDS: KCL 20 MEQ/100 mL IVPB 20 MEQ/100 ML BAG IV SCH (09:19)
[2025-03-10] MEDS: LOSARTAN POTASSIUM 50 MG TABLET PO SCH (09:20)
[2025-03-10] MEDS: LEVOTHYROXINE SOD 0.025 MG TAB PO SCH (09:20)
--- NOTE | 2025-03-10 09:30 | CON ---
Date of Consultation: 03/10/2025 Reason For Consultation: Right upper quadrant pain with nausea and elevated bilirubin. History Of Present Illness: The patient is a 55-year-old white female with history of hypertension, hypothyroidism, vitiligo. The patient presented to the hospital with right upper quadrant pain, claudy re, found to have elevated AST, ALT, total bilirubin. The patient said intensity of pain is probably 6/10, now is down to 0 on pain medicines in the hospital. Also, has a history of kidney stones. Ul trasound and CT scan in hospital were negative. GI service was called. MRCP and HIDA scan were orde red. MRCP revealed no stones, sludge, or debris in the biliary tree. However, there was sludge in t he gallbladder and diverticulum in the gallbladder. Ultrasound reveals some possible small polyps in the gallbladder. HIDA scan revealed a very low gallbladder ejection fraction of 2% consistent with cholecystitis. Past Medical History: Significant for hypertension, hypothyroidism, vitiligo. She reports her mater nal grandfather and all his brothers have vitiligo as well and she also has a history of kidney stone s. Medications At Home: Include blood pressure and thyroid medications listed here. Allergies: NKDA. Social History: She is , 9 children. Admits she has had many grandchildren, over 10 of them. No tobacco. No alcohol. Family History: Father alive, status post cholecystectomy. Mother alive, coronary artery disease, s tatus post cardiac stent and a brother who has gallbladder removal as well history. Review of Systems: The patient has right upper quadrant pain, nausea, some slight jaundice. No chest pain, shortness of breath, seizure, syncope, muscle aches, joint aches, backaches, melena, hematochezia, hematemesis, c offee-grounds emesis, hematuria, dysuria, polydipsia, depression, anxiety. Physical Examination: Vital Signs: The patient is 5 feet, 5 inches, 175 pounds, BMI 29.1 kg/sq m. Temperature 97.4 degree s Fahrenheit, pulse 61, respirations 16, blood pressure 136/91, O2 sat 98%. General: She is an obese female, lying in bed, in no acute distress. HEENT: Normocephalic, atraumatic. Pupils equal, round, and reactive to light. She has some slightl y icteric sclerae and conjunctiva slightly. Neck: Supple. No masses. Respirations: Clear to auscultation bilaterally. Cardiac: Regular rate and rhythm. Gastrointestinal: Positive bowel sounds. Soft, nondistended. Mild tenderness in right upper quadra nt. No peritoneal or Alejandre sign. No rebound. The patient is on pain medicines currently. Extremities: No clubbing, cyanosis, or edema. 2+ pulses. Neuro: Alert and oriented x3. Grossly nonfocal. 5/5 motor strength. Sensation intact to light antonette ch. Skin: The patient has vitiligo on upper and lower extremities and trunk as well. Laboratory Data: The patient has a white count of 3.6, hemoglobin of 12.4, hematocrit 36, MCV of 88, platelet count 140, polys of 48%, lymphocytes 34%, monocytes 13%, eosinophils 3%, basophils 1%. PT of 13.5, INR of 1.19, PTT of 29.6. She has sodium 141, potassium 3.4, chloride 112, bicarb 23, BUN o f 7, creatinine of 0.64, glucose 79, calcium 8.7. Magnesium 1.7. Total bilirubin 2.0 down from 2.6 yesterday. AST of 59, ALT of 95, alk phos 48, total protein 6.5, albumin 3.0 lipase 20. UA shows sp ecific gravity greater than 1.030, 1+ ketones, 1+, blood, 25 leukocyte esterase, 11-20 rbc's, 20-50 s quamous epithelial cells with . Serologies: Hepatitis C antibody was positive. Hepatitis B and A antibodies were negative. Monospot was positive as well. Testing for influenza and COVID w ere negative. As stated, CT scan of abdomen and pelvis is negative. Ultrasound revealed small gallbladder polyps, otherwise negative. MRCP revealed no stones and sludge in the common bile duct. There was a small s tone sludge in the gallbladder and diverticulum in the gallbladder wall. Had no polyps seen on the [employer]. HIDA scan revealed a gallbladder ejection fraction of 2% consistent with cholecystitis. Impression: 1. Cholecystitis, cholelithiasis with right upper quadrant pain, nausea. CT scan as mentioned is neg ative. Ultrasound revealed small gallbladder polyps, otherwise negative. MRCP reveals no stone or s ludge or other in the common bile duct biliary tree. There was small stone sludge in the gallbladder with gallbladder diverticulum and HIDA scan revealed a gallbladder ejection fraction of 2% consisten t with cholecystitis. 2. Monospot positive. The patient states that she has many children and grandchildren. Does not kno w where she got the disease. However, I told her to have good hygiene. Do not share food with other s and make sure she washes her hands whenever interacting with food or with others, with oral secreti ons or body secretion. 3. Hepatitis C antibody positive. We will need to check hepatitis C RNA PCR and treat, bu t she states that her PCP knows about this already and planned to send her to a opal miner fo r therapy. 4. History of hypertension, hypothyroidism, vitiligo, kidney stones. Recommendations: 1. Continue IV fluids, IV antibiotics. Continue p.r.n. pain medications, antiemetics. 2. Laparoscopic cholecystectomy as per Surgery. 3. Hepatitis C RNA PCR. 4. Antonia-Cobos virus. Monospot positive. Good hand, mouth hygiene, not sharing food with others an d avoid kissing, oral secretions with others until this Antonia-Cobos virus clears. is to be checked for mono and hepatitis C as well. LETI/ANDRE Voice ID: [id number] Report ID: [id number]
[2025-03-10] MEDS ORDERED: ONDANSETRON 4 MG/2 ML VIAL ONE (10:29)
[2025-03-10] MEDS ORDERED: LIDOCAINE 2% MPF 5 ML VIAL ONE (10:29)
[2025-03-10] MEDS ORDERED: ROCURONIUM 50 MG/5 ML VIAL IV ONE (10:29)
[2025-03-10] MEDS ORDERED: FENTANYL CITR 100 MCG/2 ML ONE (10:29)
[2025-03-10] MEDS ORDERED: MIDAZOLAM HCL 2 MG/2 ML INJ ONE (10:29)
[2025-03-10] MEDS: SUGAMMADEX SODIUM 200 MG/2 ML VIAL IV ONE (10:35)
[2025-03-10] MEDS: Ringers Lactate 1,000 ML IV ONE (11:10)
[2025-03-10] MEDS ORDERED: GLYCOPYRROLATE 0.2 MG/ML SYR ONE (11:22)
[2025-03-10] MEDS ORDERED: Mastisol Adhesive Liq ONE (11:36)
--- NOTE | 2025-03-10 11:37 | P.BOP ---
Preoperative diagnosis: Acute cholecystitis, symptomatic cholelithiasis, s/pMRCP Postoperative diagnosis: same Primary procedure: Laparoscopic cholecystectomy Estimated blood loss: <10cc Specimen: gallbladder Findings: as above Anesthesia: General Complications: None Transferred to: Recovery Room Condition: Good
[2025-03-10 12:20] VITALS: O2SAT 98
[2025-03-10] MEDS: MORPHINE 4 MG/ML SYR IV PRN (13:49)
--- NOTE | 2025-03-10 13:59 | P.PN ---
Subjective Date of Service: 03/10/25 Chief Complaint: Abdominal pain Subjective: Improving (Patient status post laparoscopic cholecystectomy for acute calculous cholecystitis. Started on full liquid diet by surgery.) Physical Examination - Vital Signs Temperature: 97.9 F Blood Pressure: 152/84 Pulse: 74 Respirations: 16 Pulse Ox (%): 98 - Physical Exam General: In no apparent distress, Cooperative HEENT: Atraumatic, Normocephalic Respiratory: Clear to auscultation bilaterally, Normal air movement Cardiovascular: No edema, Normal pulses, Regular rate/rhythm, Normal S1 S2 Gastrointestinal: Tenderness Neurological: Normal speech Assessment And Plan - Plan Assessment Patient is a 55-year-old female who presented to the hospital with abdominal pain. She underwent multiple testing due to equivocal findings and was ultimately found to have acute cholelithiasis and biliary dyskinesia. She eventually underwent cholecystectomy with intraoperative findings consistent with acute calculous cholecystitis. Patient also had transaminasemia. She tested positive for hepatitis C virus and infectious mononucleosis. Acute calculous cholecystitis Biliary dyskinesia Transaminasemia Hepatitis C virus Infectious mononucleosis Hypertension Plan: Will obtain HCV PCR levels Trend LFTs Continue post Cholecystectomy care with multimodal pain regimen antibiotics She is currently on full liquid diet. Will advance as tolerated GI and DVT prophylaxis Blood pressure control
--- NOTE | 2025-03-10 21:24 | OP ---
Date of Procedure: 03/10/2025 Surgeon: Mason Talley MD Preoperative Diagnoses: Acute cholecystitis, symptomatic cholelithiasis status post MRCP. Postoperative Diagnoses: Acute cholecystitis, symptomatic cholelithiasis status post MRCP. Procedure: Laparoscopic cholecystectomy. Estimated Blood Loss: Less than 10 cc. Specimen: Gallbladder. Finding: Acute cholecystitis. Complications: None. Indications: This is a case of a 55-year-old patient with above diagnoses. Fully explained the bene fit, alternatives, and risks of laparoscopic possible open cholecystectomy, which include, but not li mited to infection, bleeding, damage to adjacent structures, anesthesia complication, choledocholithi asis, bile leak, pancreatitis, CT, and even . She also understands this may not relieve symptom s. She might need more than one surgical intervention. She understood, signed a consent. Description Of Procedure: The patient was brought to the operating room, placed in supine position. Anesthesia was done without complication. Abdominal area was prepped and draped in sterile fashion. Marcaine 0.5% was injected for local anesthetic followed by sharp incision of the skin in the supra umbilical region. Incision was carried down to fascia, which was opened under direct vision. Perito neum was encountered, opened under direct vision. Vicryl #1 placed inside the fascia. Brandi trocar was carefully introduced. Pneumoperitoneum was obtained. I placed 3 more trocars, 5 mm each one of them, 1 epigastric area, 2 in the right upper quadrant using the same technique which consisted of l ocal anesthetic, sharp incision over the skin, introduction of the trocars under direct vision. This allowed me to put a grasper in the fundus of the gallbladder, another grasper in the infundibulum, r etracting the gallbladder in the inferolateral fashion exposing the triangle of Calot, obtaining crit ical view. Cystic duct and cystic artery were clearly isolated and freed circumferentially, and a co nnection between those and the gallbladder was clearly identified. I proceeded to ligate those by us ing at least 3 clips proximal, 1 clip distal, ligation in middle. Same was done with the cystic ko ry. No bile leak. No bleeding. The gallbladder was removed from liver using Bovie cauterizer and r emoved from abdominal cavity using EndoCatch through the umbilical incision. The area was inspected once again. No bile leak. No bleeding. At that moment, I proceeded to remove the trocars under dir ect vision, deflated pneumoperitoneum, closed the fascia with #1 Vicryl, irrigated subcutaneous tissu e, closed that with 3-0 chromic and then skin with Monocryl and Steri-Strips. Sponge count and instr ument counts correct. The patient tolerated the procedure well. The patient was sent to recovery in stable condition. RICK/ANDRE Voice ID: [id number] Report ID: [id number]
[2025-03-11 08:22] LABS: ALT/SGPT 83.0 U/L (13-56); AST/SGOT 45.0 U/L (15-37); Albumin 3.1 g/dL (3.4-5.0); Albumin/Globulin Ratio 0.9 (1.1-1.8); Alkaline Phosphatase 44.0 U/L (45-117); Anion Gap 9.6 mEq/L (5.0-15.0); BUN Blood Urea Nitrogen 6.0 mg/dL (7-18); Globulin 3.6 g/dL (2.3-3.5); Glucose Level 124.0 mg/dL (74-106); Magnesium 1.6 mg/dL (1.6-2.4); Potassium 3.6 mEq/L (3.5-5.1)
[2025-03-11 13:01] VITALS: BP 145/96; TEMP 97.7
--- NOTE | 2025-03-11 13:27 | P.DS ---
Admission Date: 03/08/25 Discharge Date: 03/11/25 Disposition: ROUTINE DISCHARGE Discharge Condition: GOOD Reason for Admission: Abdominal pain Hospital Course: Patient is a 55-year-old female who presented to the hospital with abdominal pain. She underwent multiple testing due to equivocal findings and was ultimately found to have acute cholelithiasis and biliary dyskinesia. She eventually underwent cholecystectomy with intraoperative findings consistent with acute calculous cholecystitis. Patient also had transaminasemia. She tested positive for hepatitis C virus and infectious mononucleosis. HCV viral load pending. Patient has done well postoperatively. Her pain is better controlled. She will be discharged with the plan to follow-up with Dr. Talley and Dr. Olguin. Vital Signs/Physical Exam: Temp Pulse Resp BP Pulse Ox 97.7 F 69 18 145/96 H 98 03/11/25 12:00 03/11/25 12:00 03/11/25 12:00 03/11/25 12:00 03/11/25 12:00 General: Alert, In no apparent distress, Cooperative HEENT: Atraumatic, Normocephalic Respiratory: Other (Breathing is not labored on room air) Cardiovascular: No edema Gastrointestinal: Other (Status post laparoscopic cholecystectomy) Neurological: Normal speech Laboratory Data at Discharge: WBC 3.60 thou/uL (4.3-10.9) L 03/10/25 05:53 Hgb 12.4 g/dL (12.0-15.0) D 03/10/25 05:53 Hct 36.0 % (36.0-45.0) 03/10/25 05:53 Plt Count 140 thou/uL (152-406) L 03/10/25 05:53 PT 13.4 SECONDS (10-13.0) H 03/10/25 05:53 INR 1.19 03/10/25 05:53 APTT 29.6 SECONDS (27.2-37.4) 03/10/25 05:53 Sodium 140 mEq/L (136-145) 03/11/25 07:44 Potassium 3.6 mEq/L (3.5-5.1) 03/11/25 07:44 BUN 6 mg/dL (7-18) L 03/11/25 07:44 Creatinine 0.68 mg/dL (0.55-1.02) 03/11/25 07:44 Glucose 124 mg/dL (74-106) H 03/11/25 07:44 Magnesium 1.6 mg/dL (1.6-2.4) 03/11/25 07:44 Total Bilirubin 1.4 mg/dL (0.2-1.0) H 03/11/25 07:44 AST 45 U/L (15-37) H 03/11/25 07:44 ALT 83 U/L (13-56) H 03/11/25 07:44 Alkaline Phosphatase 44 U/L (45-117) L 03/11/25 07:44 Lipase 20 U/L (13-75) 03/08/25 18:23 Home Medications: Levothyroxine Sodium [Euthyrox] 25 mcg PO DAILY 03/09/25 Losartan Potassium [Cozaar*] 50 mg PO DAILY 03/09/25 Amox/Clavulanate [Augmentin 875-125 Tab] 1 each PO BID #10 tab 03/11/25 New Medications: Amox/Clavulanate [Augmentin 875-125 Tab] 1 each PO BID #10 tab Physician Discharge Instructions: Keep surgical area dry and clean for 28h then may remove outer dressing and shower but keep sterile strips intact. Activity: No lifting more than 10 lbs Followup: Mason Talley MD [ACTIVE - CAN ADMIT] - 1 Week NONE,NONE [Primary Care Provider] - 1 Week
[2025-03-11 14:06] LABS: ALT/SGPT 80.0 U/L (13-56); AST/SGOT 47.0 U/L (15-37); Albumin 3.1 g/dL (3.4-5.0); Albumin/Globulin Ratio 0.8 (1.1-1.8); Alkaline Phosphatase 45.0 U/L (45-117); Anion Gap 11.6 mEq/L (5.0-15.0); BUN Blood Urea Nitrogen 9.0 mg/dL (7-18); Globulin 3.9 g/dL (2.3-3.5); Glucose Level 113.0 mg/dL (74-106); Potassium 3.6 mEq/L (3.5-5.1)
[2025-03-14 15:25] LABS: Hepatitis C RNA (PCR) 2440000.0 IU/mL; Hepatitis C Virus RNA (PCR)log 6.39 log IU/mL
== END 2025-03-11 15:55 | disposition home or self-care (01) | DRG 419 ==
LOC: ER 17:07 → ERHOLD 21:31 → 2ND 23:09
PROVIDERS: ADMIT Family Medicine; ATTEND Internal Medicine
PROC: 0FT44ZZ Resection of Gallbladder, Percutaneous Endoscopic Approach (ICD-10-PCS; principal; 2025-03-10 11:00)
DX: K80.00 Calculus of gallbladder with acute cholecystitis without obstruction (principal); I10 Essential (primary) hypertension; E03.9 Hypothyroidism, unspecified; K76.89 Other specified diseases of liver; K82.8 Other specified diseases of gallbladder; E80.6 Other disorders of bilirubin metabolism; B19.20 Unspecified viral hepatitis C without hepatic coma; B27.00 Gammaherpesviral mononucleosis without complication; R74.01 Elevation of levels of liver transaminase levels; R79.89 Other specified abnormal findings of blood chemistry; Z90.49 Acquired absence of other specified parts of digestive tract; Z11.52 Encounter for screening for COVID-19
CPT/HCPCS: 36415; 74177; 74181; 76705; 78227; 80053; 80074; 81001; 83605; 83690; 83735; 85025; 85610; 85730; 86308; 87428; 87522; 88304; 94010; 96361; 96372; 96374; 96375; 99285; A9537; J0500; J1100; J1885; J2003; J2250; J2270; J2405; J2543; J2704; J2805; J3010; J3480; J7030; J7120; Q9967